=== PATIENT | male | born 1950 | race Hispanic/Latino ===

== ENCOUNTER 2017-09-02 08:38 | Emergency (ER) | payer MEDICARE ==
[2017-09-02] MEDS ORDERED: ACETAMINOPHEN 325 MG TAB ONE (09:25)
== END 2017-09-02 09:54 | disposition home or self-care (01) ==
LOC: EDH 08:38
DX: J10.1 Influenza due to other identified influenza virus with other respiratory manifestations (principal); J44.9 Chronic obstructive pulmonary disease, unspecified; E11.9 Type 2 diabetes mellitus without complications; I10 Essential (primary) hypertension; Z79.4 Long term (current) use of insulin; Z88.6 Allergy status to analgesic agent
CPT/HCPCS: 87804

== ENCOUNTER 2019-01-27 11:41 | Emergency (ER) | payer MEDICARE ==
[2019-01-27] MEDS ORDERED: TETANUS/DIPHTHERIA TOXOID [ADULT] 0.5 ML VIAL IM ONE (12:12)
== END 2019-01-27 12:27 | disposition home or self-care (01) ==
LOC: EDH 11:41
DX: S01.93XA Puncture wound without foreign body of unspecified part of head, initial encounter (principal); E11.9 Type 2 diabetes mellitus without complications; I10 Essential (primary) hypertension; J44.9 Chronic obstructive pulmonary disease, unspecified; Z88.6 Allergy status to analgesic agent; Z87.891 Personal history of nicotine dependence; W20.8XXA Other cause of strike by thrown, projected or falling object, initial encounter; Y93.89 Activity, other specified; Y92.89 Other specified places as the place of occurrence of the external cause; Y99.8 Other external cause status
CPT/HCPCS: 90471; 90714

== ENCOUNTER 2019-03-01 03:43 | Emergency (ER) | payer MEDICARE ==
[2019-03-01 03:59] LABS: APPEARANCE,URINE Clear (CLEAR); BILIRUBIN,URINE Negative (NEGATIVE); COLOR,URINE Yellow (YELLOW); GLUCOSE, URINE (UA) Negative (NEGATIVE); KETONES,URINE Negative (NEGATIVE); LEUKOCYTE ESTERASE ,URINE Negative (NEGATIVE); NITRATE,URINE Negative (NEGATIVE); OCCULT BLOOD,URINE Negative (NEGATIVE); PROTEIN,URINE Negative (NEGATIVE); UROBILINOGEN,URINE 0.2 mg/dL (0.2-1.0)
[2019-03-01 04:32] LABS: BASOPHILS % (AUTO) 0.8 % (0.0-5.0); EOSINOPHILS % (AUTO) 2.6 % (0.0-8.0); HEMATOCRIT 43.1 % (42-54); LYMPHOCYTES % (AUTO) 37.5 % (21.0-51.0); MEAN CORPUSCULAR HEMOGLOBIN 33.3 pg (27.0-33.0); MEAN CORPUSCULAR HGB CONC 33.8 g/dL (32.0-36.0); MEAN CORPUSCULAR VOLUME 98.5 fL (79-99); MONOCYTES % (AUTO) 7.8 % (3.0-13.0); NEUTROPHILS % (AUTO) 51.3 % (40.0-77.0); NUCLEATED RED BLOOD CELLS 0.1 % (0.0-0.19); PLATELET COUNT (AUTO) 105 K/uL (130-400); RED BLOOD CELL COUNT(AUTO) 4.38 MIL/uL (4.50-6.20); RED CELL DISTRIBUTION WIDTH 12.8 % (11.0-15.5)
[2019-03-01 04:43] LABS: CREATININE 1.2 mg/dL (0.5-1.5); POTASSIUM 3.4 mmol/L (3.5-5.1)
[2019-03-01 04:48] LABS: ALBUMIN 3.8 g/dL (3.5-5.0); BILIRUBIN,TOTAL 0.7 mg/dL (0.2-1.0); TOTAL PROTEIN, SERUM 7.3 g/dL (6.0-8.3)
[2019-03-01] MEDS ORDERED: TRAMADOL HCL 50 MG TABLET ONE (05:50)
== END 2019-03-01 05:53 | disposition home or self-care (01) ==
LOC: EDH 03:43
DX: R30.0 Dysuria (principal); R10.30 Lower abdominal pain, unspecified; I10 Essential (primary) hypertension; E11.40 Type 2 diabetes mellitus with diabetic neuropathy, unspecified; J44.9 Chronic obstructive pulmonary disease, unspecified; Z88.6 Allergy status to analgesic agent; Z79.4 Long term (current) use of insulin
CPT/HCPCS: 36415; 74176; 80053; 81003; 85025; 87486; 87797

== ENCOUNTER → 2019-04-03 | Outpatient (CLI) | payer MEDICARE | END | disposition home or self-care (01) | LOC: RAH 09:40 | PROVIDERS: ATTEND Surgery | DX: R10.9 Unspecified abdominal pain (principal); M47.819 Spondylosis without myelopathy or radiculopathy, site unspecified | CPT/HCPCS: 72192 ==

== ENCOUNTER 2019-08-17 14:11 | Emergency (ER) | payer MEDICARE ==
[2019-08-17 14:55] LABS: BASOPHILS % (AUTO) 0.6 % (0.0-5.0); EOSINOPHILS % (AUTO) 2.8 % (0.0-8.0); HEMATOCRIT 42.4 % (42-54); LYMPHOCYTES % (AUTO) 32.5 % (21.0-51.0); MEAN CORPUSCULAR HEMOGLOBIN 32.2 pg (27.0-33.0); MEAN CORPUSCULAR HGB CONC 33.7 g/dL (32.0-36.0); MEAN CORPUSCULAR VOLUME 95.5 fL (79-99); MONOCYTES % (AUTO) 6.5 % (3.0-13.0); NEUTROPHILS % (AUTO) 57.4 % (40.0-77.0); PLATELET COUNT (AUTO) 111 K/uL (130-400); RED BLOOD CELL COUNT(AUTO) 4.44 MIL/uL (4.50-6.20); RED CELL DISTRIBUTION WIDTH 11.9 % (11.0-15.5); WHITE BLOOD COUNT (AUTO) 4.6 K/uL (4.8-10.8)
[2019-08-17 15:06] LABS: APPEARANCE,URINE Cloudy (CLEAR); BILIRUBIN,URINE Negative (NEGATIVE); COLOR,URINE Yellow (YELLOW); GLUCOSE, URINE (UA) >=1000 mg/dL (NEGATIVE); KETONES,URINE Negative (NEGATIVE); LEUKOCYTE ESTERASE ,URINE Negative (NEGATIVE); NITRATE,URINE Negative (NEGATIVE); OCCULT BLOOD,URINE Negative (NEGATIVE); PROTEIN,URINE POS 1+ mg/dL (NEGATIVE); UROBILINOGEN,URINE 0.2 mg/dL (0.2-1.0)
[2019-08-17 15:11] LABS: INR 0.97 (0.85-1.15); PARTIAL THROMBOPLASTIN TIME 26.4 SEC (26.3-35.5); PROTHROMBIN TIME 10.2 SEC (9.6-11.6)
[2019-08-17 15:12] LABS: CREATININE 1.6 mg/dL (0.5-1.5)
[2019-08-17 15:17] LABS: ALBUMIN 3.9 g/dL (3.5-5.0); BILIRUBIN,TOTAL 0.5 mg/dL (0.2-1.0); TOTAL PROTEIN, SERUM 7.5 g/dL (6.0-8.3)
[2019-08-17 15:20] LABS: RBC,URINE 0-1 /HPF (0-1)
[2019-08-17 15:21] LABS: BACTERIA,URINE Rare /HPF (None Seen); MUCUS,URINE Moderate LPF (None Seen); SPERM,URINE Many /HPF (None Seen); SQUAMOUS EPITHELIAL CELL,UR 0-2 /HPF (0-2); WBC,URINE 0-1 /HPF (0-1)
[2019-08-17] MEDS ORDERED: PROCHLORPERAZINE EDISYLATE 10 MG/2 ML VIAL ONE (15:44)
[2019-08-17] MEDS ORDERED: SODIUM CHLORIDE 0.9% 500ML 500 ML IV ONE (15:45)
== END 2019-08-17 17:23 | disposition home or self-care (01) ==
LOC: EDH 14:11
DX: R10.13 Epigastric pain (principal); R10.10 Upper abdominal pain, unspecified; R11.0 Nausea; I10 Essential (primary) hypertension; E11.40 Type 2 diabetes mellitus with diabetic neuropathy, unspecified; J44.9 Chronic obstructive pulmonary disease, unspecified; Z88.6 Allergy status to analgesic agent; Z87.891 Personal history of nicotine dependence
CPT/HCPCS: 36415; 74176; 80053; 81001; 82550; 83690; 84484; 85025; 85610; 85730; 93005; 99285; J0780; J7040

== ENCOUNTER 2019-09-08 19:42 | Emergency (ER) | payer MEDICARE ==
[2019-09-08] MEDS ORDERED: TETANUS/DIPHTHERIA TOXOID [ADULT] 0.5 ML VIAL IM ONE (19:55)
== END 2019-09-08 20:27 | disposition home or self-care (01) ==
LOC: EDH 19:42
DX: S91.331A Puncture wound without foreign body, right foot, initial encounter (principal); Z88.6 Allergy status to analgesic agent; Z88.1 Allergy status to other antibiotic agents; E11.9 Type 2 diabetes mellitus without complications; J44.9 Chronic obstructive pulmonary disease, unspecified; X58.XXXA Exposure to other specified factors, initial encounter; Y93.89 Activity, other specified; Y92.098 Other place in other non-institutional residence as the place of occurrence of the external cause; Y99.8 Other external cause status
CPT/HCPCS: 73630; 90471; 90714

== ENCOUNTER 2019-12-13 15:23 | Emergency (ER) | payer MEDICARE ==
[2019-12-13] MEDS ORDERED: SODIUM CHLORIDE 0.9% 1000ML 1,000 ML IV ONE (15:24)
[2019-12-13 15:51] LABS: BASOPHILS % (AUTO) 0.4 % (0.0-5.0); EOSINOPHILS % (AUTO) 2.4 % (0.0-8.0); LYMPHOCYTES % (AUTO) 24.4 % (21.0-51.0); MEAN CORPUSCULAR HEMOGLOBIN 32.2 pg (27.0-33.0); MEAN CORPUSCULAR HGB CONC 34.3 g/dL (32.0-36.0); MEAN CORPUSCULAR VOLUME 93.9 fL (79-99); MONOCYTES % (AUTO) 8.2 % (3.0-13.0); NEUTROPHILS % (AUTO) 64.4 % (40.0-77.0); PLATELET COUNT (AUTO) 133 K/uL (130-400); RED BLOOD CELL COUNT(AUTO) 4.26 MIL/uL (4.50-6.20); RED CELL DISTRIBUTION WIDTH 11.8 % (11.0-15.5); WHITE BLOOD COUNT (AUTO) 5.5 K/uL (4.8-10.8)
[2019-12-13 16:04] LABS: ALBUMIN 3.8 g/dL (3.5-5.0); BILIRUBIN,TOTAL 0.4 mg/dL (0.2-1.0); CREATININE 1.5 mg/dL (0.5-1.5); TOTAL PROTEIN, SERUM 7.6 g/dL (6.0-8.3)
[2019-12-13] MEDS ORDERED: INSULIN HUMULIN R 100 UNIT/ML 3ML ONE (16:25)
[2019-12-13 16:55] LABS: ERYTHROCYTE SEDIMENTATION RATE 23 MM/HR (0-20)
[2019-12-13] MEDS ORDERED: CEFTRIAXONE SODIUM 1 GM ONE (17:38)
== END 2019-12-13 18:31 | disposition home or self-care (01) ==
LOC: EDH 15:23
DX: S92.902A Unspecified fracture of left foot, initial encounter for closed fracture (principal); L03.116 Cellulitis of left lower limb; E11.40 Type 2 diabetes mellitus with diabetic neuropathy, unspecified; J44.9 Chronic obstructive pulmonary disease, unspecified; Z88.8 Allergy status to other drugs, medicaments and biological substances; X58.XXXA Exposure to other specified factors, initial encounter; Y93.9 Activity, unspecified; Y92.89 Other specified places as the place of occurrence of the external cause; Y99.8 Other external cause status
CPT/HCPCS: 36415; 73630; 80053; 82948; 85025; 85651; 87040 ×2; 96374; 96375; 99284; J0696; J1815; J7030

== ENCOUNTER → 2020-03-30 | Outpatient (CLI) | payer MEDICARE | END | disposition home or self-care (01) | LOC: RAH 10:39 | PROVIDERS: ATTEND Psychiatry & Neurology Neurology | DX: M48.02 Spinal stenosis, cervical region (principal); E11.42 Type 2 diabetes mellitus with diabetic polyneuropathy | CPT/HCPCS: 72141 ==

== ENCOUNTER 2020-04-17 08:36 | Emergency (ER) | payer MEDICARE ==
[2020-04-17] MEDS ORDERED: SODIUM CHLORIDE 0.9% 1000ML 1,000 ML IV ONE (08:37)
[2020-04-17 09:21] LABS: BASOPHILS % (AUTO) 0.4 % (0.0-5.0); EOSINOPHILS % (AUTO) 2.5 % (0.0-8.0); HEMATOCRIT 43.6 % (42-54); LYMPHOCYTES % (AUTO) 27.8 % (21.0-51.0); MEAN CORPUSCULAR HEMOGLOBIN 31.9 pg (27.0-33.0); MEAN CORPUSCULAR HGB CONC 33.7 g/dL (32.0-36.0); MEAN CORPUSCULAR VOLUME 94.6 fL (79-99); MONOCYTES % (AUTO) 7.2 % (3.0-13.0); NEUTROPHILS % (AUTO) 61.9 % (40.0-77.0); PLATELET COUNT (AUTO) 107 K/uL (130-400); RED BLOOD CELL COUNT(AUTO) 4.61 MIL/uL (4.50-6.20); RED CELL DISTRIBUTION WIDTH 12.5 % (11.0-15.5); WHITE BLOOD COUNT (AUTO) 4.5 K/uL (4.8-10.8)
[2020-04-17 09:41] LABS: CREATININE 1.3 mg/dL (0.5-1.5); POTASSIUM 3.9 mmol/L (3.5-5.1)
[2020-04-17 09:45] LABS: ALBUMIN 3.7 g/dL (3.5-5.0); BILIRUBIN,TOTAL 0.7 mg/dL (0.2-1.0); CRP QUANTITATIVE 9.4 mg/L (0.00-9.0); TOTAL PROTEIN, SERUM 7.6 g/dL (6.0-8.3)
[2020-04-17 10:58] LABS: ERYTHROCYTE SEDIMENTATION RATE 25 MM/HR (0-20)
[2020-04-17] MEDS ORDERED: CEFTRIAXONE SODIUM 1 GM ONE (12:25)
== END 2020-04-17 13:13 | disposition home or self-care (01) ==
LOC: EDH 08:36
DX: S90.822A Blister (nonthermal), left foot, initial encounter (principal); M14.672 Charcot's joint, left ankle and foot; E11.65 Type 2 diabetes mellitus with hyperglycemia; J44.9 Chronic obstructive pulmonary disease, unspecified; I10 Essential (primary) hypertension; Z87.891 Personal history of nicotine dependence; Z88.8 Allergy status to other drugs, medicaments and biological substances; Z88.6 Allergy status to analgesic agent; X58.XXXA Exposure to other specified factors, initial encounter; Y93.89 Activity, other specified; Y92.89 Other specified places as the place of occurrence of the external cause; Y99.8 Other external cause status
CPT/HCPCS: 36415; 73630; 80053; 83605; 84145; 85025; 85651; 86140; 87070; 87076; 93005; 96361; 96374; 99285; J0696; J7030

== ENCOUNTER 2020-11-13 18:12 | Emergency (ER) | payer MEDICARE ==
[2020-11-13 19:43] LABS: BASOPHILS % (AUTO) 0.8 % (0.0-5.0); EOSINOPHILS % (AUTO) 2.7 % (0.0-8.0); HEMATOCRIT 38.3 % (42-54); LYMPHOCYTES % (AUTO) 30.9 % (21.0-51.0); MEAN CORPUSCULAR HEMOGLOBIN 32.7 pg (27.0-33.0); MEAN CORPUSCULAR HGB CONC 33.7 g/dL (32.0-36.0); MEAN CORPUSCULAR VOLUME 97.2 fL (79-99); MONOCYTES % (AUTO) 9.8 % (3.0-13.0); NEUTROPHILS % (AUTO) 55.3 % (40.0-77.0); PLATELET COUNT (AUTO) 102 K/uL (130-400); RED BLOOD CELL COUNT(AUTO) 3.94 MIL/uL (4.50-6.20); RED CELL DISTRIBUTION WIDTH 13.4 % (11.0-15.5); WHITE BLOOD COUNT (AUTO) 3.8 K/uL (4.8-10.8)
[2020-11-13 19:51] LABS: CREATININE 1.4 mg/dL (0.5-1.5); POTASSIUM 3.9 mmol/L (3.5-5.1)
[2020-11-13 19:53] LABS: APPEARANCE,URINE Clear (CLEAR); BILIRUBIN,URINE Negative (NEGATIVE); COLOR,URINE Yellow (YELLOW); GLUCOSE, URINE (UA) >=1000 mg/dL (NEGATIVE); KETONES,URINE Negative (NEGATIVE); LEUKOCYTE ESTERASE ,URINE Negative (NEGATIVE); NITRATE,URINE Negative (NEGATIVE); OCCULT BLOOD,URINE Negative (NEGATIVE); PH,URINE 5.5 (5.0-8.0); PROTEIN,URINE Negative (NEGATIVE)
[2020-11-13] MEDS ORDERED: METHYLPREDNISOLONE SOD SUCC 125MG/2ML VIAL ONE (19:54)
[2020-11-13 19:56] LABS: ALBUMIN 3.3 g/dL (3.5-5.0); BILIRUBIN,TOTAL 0.5 mg/dL (0.2-1.0); TOTAL PROTEIN, SERUM 7.4 g/dL (6.0-8.3)
[2020-11-13] MEDS ORDERED: IPRATROPIUM/ALBUTEROL SULFATE 3 ML SOLUTION IH ONE (20:10)
[2020-11-13 20:11] LABS: BACTERIA,URINE Rare /HPF (None Seen); RBC,URINE 0-1 /HPF (0-1); SQUAMOUS EPITHELIAL CELL,UR Rare /HPF (0-2); WBC,URINE 0-1 /HPF (0-1)
[2020-11-13 20:23] LABS: ABG BASE EXCESS -1.7 mmol/L (-2.0-3.0); ABG HCO3 22.3 mmol/L (21.0-28.0); ABG OXYGEN SATURATION 95.3 % (95.0-99.0); ABG PCO2 36 mmHg (35-48)
== END 2020-11-13 22:34 | disposition home or self-care (01) ==
LOC: EDH 18:12
DX: J44.9 Chronic obstructive pulmonary disease, unspecified (principal); Z20.822 Contact with and (suspected) exposure to COVID-19; I10 Essential (primary) hypertension; E11.40 Type 2 diabetes mellitus with diabetic neuropathy, unspecified; Z88.6 Allergy status to analgesic agent; Z88.8 Allergy status to other drugs, medicaments and biological substances; Z87.891 Personal history of nicotine dependence
CPT/HCPCS: 36415; 36600; 71045; 80053; 81001; 82803; 83880; 84484; 85025; 87426; 93005; 94640; 96374; 99285; J2930; U0003

== ENCOUNTER 2020-12-30 18:11 | Emergency (ER) | payer MEDICARE ==
[2020-12-30 19:01] LABS: BASOPHILS % (AUTO) 0.5 % (0.0-5.0); EOSINOPHILS % (AUTO) 3.7 % (0.0-8.0); HEMATOCRIT 38.1 % (42-54); LYMPHOCYTES % (AUTO) 32.1 % (21.0-51.0); MEAN CORPUSCULAR HEMOGLOBIN 32.9 pg (27.0-33.0); MEAN CORPUSCULAR HGB CONC 34.4 g/dL (32.0-36.0); MEAN CORPUSCULAR VOLUME 95.7 fL (79-99); MONOCYTES % (AUTO) 9.2 % (3.0-13.0); NEUTROPHILS % (AUTO) 54.5 % (40.0-77.0); PLATELET COUNT (AUTO) 92 K/uL (130-400); RED BLOOD CELL COUNT(AUTO) 3.98 MIL/uL (4.50-6.20); RED CELL DISTRIBUTION WIDTH 12.7 % (11.0-15.5)
[2020-12-30] MEDS ORDERED: HYDROCODONE/ACETAMINOPHEN 5/325 MG TAB ONE (19:08)
[2020-12-30 19:15] LABS: CREATININE 1.5 mg/dL (0.5-1.5); INR 1.05 (0.85-1.15); POTASSIUM 3.8 mmol/L (3.5-5.1); PROTHROMBIN TIME 11.4 SEC (9.6-11.6)
[2020-12-30 19:16] LABS: PARTIAL THROMBOPLASTIN TIME 25.5 SEC (26.3-35.5)
[2020-12-30 19:19] LABS: ALBUMIN 3.1 g/dL (3.5-5.0); BILIRUBIN,TOTAL 0.7 mg/dL (0.2-1.0); CRP QUANTITATIVE 12.1 mg/L (0.00-9.0); TOTAL PROTEIN, SERUM 7.1 g/dL (6.0-8.3)
[2020-12-30 20:05] LABS: ERYTHROCYTE SEDIMENTATION RATE 27 MM/HR (0-20)
== END 2020-12-30 21:43 | disposition home or self-care (01) ==
LOC: EDH 18:11
DX: L03.115 Cellulitis of right lower limb (principal); R60.9 Edema, unspecified; I10 Essential (primary) hypertension; J44.9 Chronic obstructive pulmonary disease, unspecified; E11.40 Type 2 diabetes mellitus with diabetic neuropathy, unspecified; Z88.6 Allergy status to analgesic agent; Z88.8 Allergy status to other drugs, medicaments and biological substances; Z98.890 Other specified postprocedural states
CPT/HCPCS: 36415; 80053; 82550; 83605; 83880; 84484; 85025; 85610; 85651; 85730; 86140; 87040; 93005; 93971

== ENCOUNTER 2021-01-01 16:21 | Emergency (ER) | payer MEDICARE ==
[2021-01-01] MEDS ORDERED: ACETAMINOPHEN EXTRA STRENGTH 500 MG TABLET ONE (16:53)
== END 2021-01-01 17:51 | disposition home or self-care (01) ==
LOC: EDH 16:21
DX: S86.912A Strain of unspecified muscle(s) and tendon(s) at lower leg level, left leg, initial encounter (principal); I10 Essential (primary) hypertension; J44.9 Chronic obstructive pulmonary disease, unspecified; E11.40 Type 2 diabetes mellitus with diabetic neuropathy, unspecified; Z88.6 Allergy status to analgesic agent; Z88.8 Allergy status to other drugs, medicaments and biological substances; X58.XXXA Exposure to other specified factors, initial encounter; Y93.89 Activity, other specified; Y92.098 Other place in other non-institutional residence as the place of occurrence of the external cause; Y99.8 Other external cause status
CPT/HCPCS: 93971

== ENCOUNTER 2021-03-18 19:10 | Emergency (ER) | payer MEDICARE ==
[2021-03-18 19:16] VITALS: BP 154/63
[2021-03-18] MEDS ORDERED: ACETAMINOPHEN WITH CODEINE 1 TAB TAB PO ONE (22:00)
[2021-03-18] MEDS ORDERED: HYDROXYZINE 25 MG TABLET PO ONE (22:00)
[2021-03-18] MEDS ORDERED: HYDR-3421 PO (22:05)
[2021-03-18] MEDS ORDERED: FAMC500T8 PO (22:05)
[2021-03-18] MEDS ORDERED: GABA300C PO (22:05)
[2021-03-18] MEDS ORDERED: ACETAMINOPHEN WITH CODEINE 1 TAB TAB ONE (22:19)
[2021-03-18] MEDS ORDERED: DIPHENHYDRAMINE HCL 25 MG CAPSULE ONE (22:22)
[2021-03-18 22:29] VITALS: BP 149/66
[2021-03-18] MEDS ORDERED: DIPHENHYDRAMINE HCL 25 MG CAPSULE PO ONE (22:30)
== END 2021-03-18 22:35 | disposition home or self-care (01) ==
LOC: EDH 19:10
DX: B02.9 Zoster without complications (principal); L29.9 Pruritus, unspecified; R20.8 Other disturbances of skin sensation; M19.90 Unspecified osteoarthritis, unspecified site; E11.40 Type 2 diabetes mellitus with diabetic neuropathy, unspecified; Z88.6 Allergy status to analgesic agent; Z88.8 Allergy status to other drugs, medicaments and biological substances; Z79.899 Other long term (current) drug therapy
CPT/HCPCS: 99283; Q0163

== ENCOUNTER 2021-08-30 20:03 | Emergency (ER) | payer MEDICARE ==
[~2021-08-30] VITALS: Ht 162.6 cm; Wt 86.2 kg
[~2021-08-30 20:03] MED LIST: FAMC500T8 PO; GABA300C PO; HYDR-3421 PO
[2021-08-30] MEDS ORDERED: VALACYCLOVIR HCL 500 MG TABLET PO SCH (21:00)
[2021-08-30] MEDS ORDERED: ACETAMINOPHEN WITH CODEINE 1 TAB TAB PO ONE (21:00)
[2021-08-30] MEDS ORDERED: DOCU-116 PO (21:22)
[2021-08-30] MEDS ORDERED: ACET1TAB25 PO (21:22)
[2021-08-30] MEDS ORDERED: ACYC-138 PO (21:22)
[2021-08-30 21:31] VITALS: BP 131/67
== END 2021-08-30 21:45 | disposition home or self-care (01) ==
LOC: EDH 20:03
DX: B02.9 Zoster without complications (principal); I10 Essential (primary) hypertension; E10.9 Type 1 diabetes mellitus without complications; Z88.6 Allergy status to analgesic agent; Z88.8 Allergy status to other drugs, medicaments and biological substances; Z79.899 Other long term (current) drug therapy

== ENCOUNTER 2021-12-16 09:23 | Emergency (ER) | payer MEDICARE ==
[~2021-12-16] VITALS: Ht 162.6 cm; Wt 87.1 kg
[~2021-12-16 09:23] MED LIST changes: +ACET-2079 PO; +ACYC-138 PO; +DOCU-116 PO
[2021-12-16] MEDS ORDERED: ACETAMINOPHEN 500 MG TABLET ONE (09:55)
[2021-12-16 09:58] LABS: BASOPHILS % (AUTO) 0.2 % (0.0-5.0); EOSINOPHILS % (AUTO) 0.2 % (0.0-8.0); HEMATOCRIT 39.5 % (42-54); LYMPHOCYTES % (AUTO) 18.7 % (21.0-51.0); MEAN CORPUSCULAR HEMOGLOBIN 33.8 pg (27.0-33.0); MEAN CORPUSCULAR HGB CONC 34.2 g/dL (32.0-36.0); MEAN CORPUSCULAR VOLUME 98.8 fL (79-99); NEUTROPHILS % (AUTO) 76.5 % (40.0-77.0); PLATELET COUNT (AUTO) 83 K/uL (130-400); RED CELL DISTRIBUTION WIDTH 13.2 % (11.0-15.5); WHITE BLOOD COUNT (AUTO) 5.3 K/uL (4.8-10.8)
[2021-12-16 10:10] LABS: POTASSIUM 3.4 mmol/L (3.5-5.1)
[2021-12-16 10:15] LABS: ALBUMIN 3.1 g/dL (3.5-5.0); BILIRUBIN,TOTAL 0.8 mg/dL (0.2-1.0); TOTAL PROTEIN, SERUM 6.7 g/dL (6.0-8.3)
[2021-12-16 11:32] LABS: APPEARANCE,URINE Clear (CLEAR); BILIRUBIN,URINE Negative (NEGATIVE); COLOR,URINE Yellow (YELLOW); GLUCOSE, URINE (UA) TRACE mg/dL (NEGATIVE); KETONES,URINE Negative (NEGATIVE); LEUKOCYTE ESTERASE ,URINE Negative (NEGATIVE); NITRATE,URINE Negative (NEGATIVE); OCCULT BLOOD,URINE Negative (NEGATIVE); PH,URINE 6.5 (5.0-8.0); PROTEIN,URINE Negative (NEGATIVE)
[2021-12-16 11:59] LABS: BACTERIA,URINE Rare /HPF (None Seen); RBC,URINE 0-1 /HPF (0-1); SQUAMOUS EPITHELIAL CELL,UR Rare /HPF (0-2); WBC,URINE 0-1 /HPF (0-1)
[2021-12-16] MEDS ORDERED: KETOROLAC 30MG VIAL (30MG/ML) ONE (12:24)
[2021-12-16] MEDS ORDERED: KETOROLAC 30MG VIAL (30MG/ML) IM ONE (12:30)
[2021-12-16 13:43] VITALS: BP 138/72
== END 2021-12-16 14:10 | disposition home or self-care (01) ==
LOC: EDH 09:23
DX: K74.60 Unspecified cirrhosis of liver (principal); I12.0 Hypertensive chronic kidney disease with stage 5 chronic kidney disease or end stage renal disease; E11.22 Type 2 diabetes mellitus with diabetic chronic kidney disease; E11.40 Type 2 diabetes mellitus with diabetic neuropathy, unspecified; J44.9 Chronic obstructive pulmonary disease, unspecified; N18.6 End stage renal disease; Z88.6 Allergy status to analgesic agent
CPT/HCPCS: 36415; 72100; 74176; 80053; 81001; 85025; 93005; 96372; 99285; J1885

== ENCOUNTER 2022-03-05 17:09 | Emergency (ER) | payer MEDICARE ==
[~2022-03-05] VITALS: Ht 162.6 cm; Wt 88.9 kg
[2022-03-05 17:52] LABS: BASOPHILS % (AUTO) 0.6 % (0.0-5.0); EOSINOPHILS % (AUTO) 2.8 % (0.0-8.0); HEMATOCRIT 37.9 % (42-54); LYMPHOCYTES % (AUTO) 29.5 % (21.0-51.0); MEAN CORPUSCULAR HEMOGLOBIN 33.9 pg (27.0-33.0); MEAN CORPUSCULAR HGB CONC 34.3 g/dL (32.0-36.0); MONOCYTES % (AUTO) 9.8 % (3.0-13.0); NEUTROPHILS % (AUTO) 56.7 % (40.0-77.0); PLATELET COUNT (AUTO) 87 K/uL (130-400); RED BLOOD CELL COUNT(AUTO) 3.83 MIL/uL (4.50-6.20); RED CELL DISTRIBUTION WIDTH 13.3 % (11.0-15.5); WHITE BLOOD COUNT (AUTO) 4.9 K/uL (4.8-10.8)
[2022-03-05 17:56] LABS: APPEARANCE,URINE Clear (CLEAR); BILIRUBIN,URINE Negative (NEGATIVE); COLOR,URINE Dark Yellow (YELLOW); GLUCOSE, URINE (UA) 250 mg/dL (NEGATIVE); KETONES,URINE Negative (NEGATIVE); LEUKOCYTE ESTERASE ,URINE Negative (NEGATIVE); NITRATE,URINE Negative (NEGATIVE); OCCULT BLOOD,URINE Negative (NEGATIVE); PH,URINE 5.5 (5.0-8.0); PROTEIN,URINE Negative (NEGATIVE)
[2022-03-05 18:09] LABS: CARBON DIOXIDE 24 mmol/L (21-32); CHLORIDE 108 mmol/L (101-111); CREATININE 1.3 mg/dL (0.5-1.5); GLOMERULAR FILTR. RATE CALC 58 mL/min (>60); GLUCOSE,RANDOM 176 mg/dL (70-105); POTASSIUM 3.4 mmol/L (3.5-5.1); SODIUM SERUM 139 mmol/L (136-145); UREA NITROGEN, BLOOD 24 mg/dL (7-18)
[2022-03-05 18:15] LABS: BACTERIA,URINE Rare /HPF (None Seen); RBC,URINE 0-1 /HPF (0-1); SQUAMOUS EPITHELIAL CELL,UR Rare /HPF (0-2); WBC,URINE 0-1 /HPF (0-1)
[2022-03-05 18:16] LABS: ALANINE AMINOTRANSFERASE 73 U/L (12-78); ALBUMIN 2.9 g/dL (3.5-5.0); ASPARTATE AMINOTRANSFERASE 36 U/L (10-37); LIPASE 256 U/L (114-286); TOTAL PROTEIN, SERUM 6.4 g/dL (6.0-8.3)
[2022-03-05 21:55] VITALS: BP 129/55
== END 2022-03-05 22:06 | disposition home or self-care (01) ==
LOC: EDH 17:09
DX: N40.0 Benign prostatic hyperplasia without lower urinary tract symptoms (principal); D69.6 Thrombocytopenia, unspecified; E87.6 Hypokalemia; I12.9 Hypertensive chronic kidney disease with stage 1 through stage 4 chronic kidney disease, or unspecified chronic kidney disease; E11.22 Type 2 diabetes mellitus with diabetic chronic kidney disease; N18.2 Chronic kidney disease, stage 2 (mild); D63.1 Anemia in chronic kidney disease; J44.9 Chronic obstructive pulmonary disease, unspecified; Z88.6 Allergy status to analgesic agent; Z88.8 Allergy status to other drugs, medicaments and biological substances; Z79.899 Other long term (current) drug therapy; Z98.890 Other specified postprocedural states; Z87.891 Personal history of nicotine dependence
CPT/HCPCS: 36415; 80053; 81001; 83690; 85025

== ENCOUNTER → 2022-03-16 | Outpatient (CLI) | payer MEDICARE ==
[~2022-03-16] MED LIST changes: +REGADENOSON 0.4 MG/5 ML PF SYG IVP SCH
== END | disposition home or self-care (01) ==
LOC: RAH 07:55
PROVIDERS: ATTEND Internal Medicine Interventional Cardiology
DX: R06.02 Shortness of breath (principal)
CPT/HCPCS: 78452; 96374; 93017; J2785; A9500 ×2

== ENCOUNTER 2022-05-07 10:45 | Emergency (ER) | payer MEDICARE ==
[~2022-05-07] VITALS: Ht 162.6 cm; Wt 87.1 kg
[~2022-05-07 10:45] MED LIST changes: -REGADENOSON 0.4 MG/5 ML PF SYG IVP SCH
[2022-05-07 12:53] LABS: BASOPHILS % (AUTO) 0.3 % (0.0-5.0); EOSINOPHILS % (AUTO) 0.3 % (0.0-8.0); HEMATOCRIT 43.8 % (42-54); LYMPHOCYTES % (AUTO) 9.9 % (21.0-51.0); MEAN CORPUSCULAR HEMOGLOBIN 33.4 pg (27.0-33.0); MEAN CORPUSCULAR HGB CONC 33.8 g/dL (32.0-36.0); MEAN CORPUSCULAR VOLUME 98.9 fL (79-99); MONOCYTES % (AUTO) 7.1 % (3.0-13.0); PLATELET COUNT (AUTO) 99 K/uL (130-400); RED BLOOD CELL COUNT(AUTO) 4.43 MIL/uL (4.50-6.20); RED CELL DISTRIBUTION WIDTH 13.1 % (11.0-15.5); WHITE BLOOD COUNT (AUTO) 9.4 K/uL (4.8-10.8)
[2022-05-07 12:58] LABS: CREATININE 1.6 mg/dL (0.5-1.5); POTASSIUM 3.7 mmol/L (3.5-5.1)
[2022-05-07 13:03] LABS: TOTAL PROTEIN, SERUM 7.1 g/dL (6.0-8.3)
[2022-05-07 13:11] LABS: APPEARANCE,URINE CLEAR (CLEAR); BILIRUBIN,URINE NEGATIVE (NEGATIVE); COLOR,URINE YELLOW (YELLOW); GLUCOSE, URINE (UA) >=1000 mg/dL (NEGATIVE); KETONES,URINE NEGATIVE (NEGATIVE); LEUKOCYTE ESTERASE ,URINE NEGATIVE Leu/uL (NEGATIVE); NITRATE,URINE NEGATIVE (NEGATIVE); OCCULT BLOOD,URINE NEGATIVE (NEGATIVE); PH,URINE 5.5 (5.0-8.0); PROTEIN,URINE NEGATIVE (NEGATIVE); UROBILINOGEN,URINE 0.2 mg/dL (0.2-1.0)
[2022-05-07 13:16] VITALS: BP 126/55
[2022-05-07 13:31] LABS: RBC,URINE 0-1 /HPF (0-1); WBC,URINE None Seen /HPF (0-1)
[2022-05-07 13:32] LABS: BACTERIA,URINE Rare /HPF (None Seen); SQUAMOUS EPITHELIAL CELL,UR 0-2 /HPF (0-2)
== END 2022-05-07 13:29 | disposition home or self-care (01) ==
LOC: EDH 10:45
DX: E11.649 Type 2 diabetes mellitus with hypoglycemia without coma (principal); I10 Essential (primary) hypertension; R55 Syncope and collapse; J44.9 Chronic obstructive pulmonary disease, unspecified; E78.00 Pure hypercholesterolemia, unspecified; Z88.6 Allergy status to analgesic agent; M19.90 Unspecified osteoarthritis, unspecified site; Z79.899 Other long term (current) drug therapy
CPT/HCPCS: 36415; 71045; 80053; 81001; 82948; 84484; 85025; 93005

== ENCOUNTER 2022-08-18 16:04 | Inpatient (IN) | payer MEDICARE ==
[~2022-08-18] VITALS: Ht 162.6 cm; Wt 84.4 kg
[~2022-08-18 16:04] MED LIST changes: -ACET-2079 PO; +ACET325T51 PO; -ACYC-138 PO; +ASPI-1443 PO; +ATOR40TA71 PO; +CILO50TA2 PO; +CLOP75TA32 PO; -DOCU-116 PO; +DOXA8TAB81 PO; +EMPA25TA PO; -FAMC500T8 PO; +FAMO20TA8 PO; +FINA5TAB41 PO; +FURO20TA4 PO; +FURO40TA5 PO; -GABA300C PO; +GLIP5TAB11 PO; -HYDR-3421 PO; +LISI40TA9 PO; +LORA10TA7 PO; +MONT-39 PO; +MUPI22OI2 TP; +OMEP40CA21 PO; +POTA-79 PO; +SPIR25TA PO
[2022-08-18] MEDS ORDERED: 0.9%NACL 1000ML 2,000 ML IV ONE (16:30)
[2022-08-18 16:38] LABS: BASOPHILS % (AUTO) 0.3 % (0.0-5.0); EOSINOPHILS % (AUTO) 0.7 % (0.0-8.0); HEMATOCRIT 42.6 % (42-54); LYMPHOCYTES % (AUTO) 21.4 % (21.0-51.0); MEAN CORPUSCULAR HEMOGLOBIN 32.4 pg (27.0-33.0); MEAN CORPUSCULAR HGB CONC 32.9 g/dL (32.0-36.0); MEAN CORPUSCULAR VOLUME 98.6 fL (79-99); MONOCYTES % (AUTO) 8.4 % (3.0-13.0); NEUTROPHILS % (AUTO) 68.7 % (40.0-77.0); PLATELET COUNT (AUTO) 90 K/uL (130-400); RED BLOOD CELL COUNT(AUTO) 4.32 MIL/uL (4.50-6.20); RED CELL DISTRIBUTION WIDTH 13.7 % (11.0-15.5); WHITE BLOOD COUNT (AUTO) 10.2 K/uL (4.8-10.8)
[2022-08-18 16:51] LABS: POTASSIUM 4.2 mmol/L (3.5-5.1)
[2022-08-18 17:01] LABS: TOTAL PROTEIN, SERUM 6.7 g/dL (6.0-8.3)
[2022-08-18] MEDS ORDERED: FLUT16H NASAL (17:10)
[2022-08-18] MEDS ORDERED: INSU100I24 SQ (17:10)
[2022-08-18] MEDS ORDERED: DULO30CA52 PO (17:10)
[2022-08-18] MEDS ORDERED: PRED20TA3 PO (17:10)
[2022-08-18] MEDS ORDERED: FLUT1BLS3 IH (17:10)
[2022-08-18] MEDS ORDERED: CILO50TA2 PO (17:10)
[2022-08-18] MEDS ORDERED: ALBU6.7H14 IH (17:10)
[2022-08-18] MEDS ORDERED: INSU100I32 SQ (17:10)
[2022-08-18] MEDS ORDERED: 0.9%NACL 1000ML 1,000 ML IV ONE (18:00)
[2022-08-18] MEDS ORDERED: VANCOMYCIN 1G VIAL IVPB ONE (18:00)
[2022-08-18] MEDS ORDERED: ZOSYN 3.375GM +NS 50ML IV ONE (18:00)
[2022-08-18 18:07] LABS: APPEARANCE,URINE CLEAR (CLEAR); BILIRUBIN,URINE NEGATIVE (NEGATIVE); COLOR,URINE YELLOW (YELLOW); GLUCOSE, URINE (UA) >=1000 mg/dL (NEGATIVE); KETONES,URINE NEGATIVE (NEGATIVE); LEUKOCYTE ESTERASE ,URINE NEGATIVE Leu/uL (NEGATIVE); NITRATE,URINE NEGATIVE (NEGATIVE); OCCULT BLOOD,URINE NEGATIVE (NEGATIVE); PH,URINE 5.5 (5.0-8.0); PROTEIN,URINE NEGATIVE (NEGATIVE); UROBILINOGEN,URINE 0.2 mg/dL (0.2-1.0)
[2022-08-18 18:10] LABS: RBC,URINE 0-1 /HPF (0-1); SQUAMOUS EPITHELIAL CELL,UR RARE /HPF (0-2)
[2022-08-18] MEDS ORDERED: ONDANSETRON 4MG INJ IV PRN (18:30)
[2022-08-18] MEDS ORDERED: CEFEPIME HCL 2 GM VIAL IVP SCH (18:30)
[2022-08-18] MEDS ORDERED: KCL 20 MEQ ERTAB PO PRN (18:30)
[2022-08-18] MEDS ORDERED: MORPHINE 2 MG SYG IV PRN (18:30)
[2022-08-18] MEDS ORDERED: INSULIN HUMULIN R 100 UNIT/ML 3ML SQ ONE (18:30)
[2022-08-18] MEDS ORDERED: HYDROMORPHONE 1 MG INJ IV PRN (18:30)
[2022-08-18] MEDS ORDERED: LACTATED RINGERS IV ONE (18:30)
[2022-08-18] MEDS ORDERED: LIDOCAINE HCL-MPF 1% 2ML VIAL IV PRN (18:30)
[2022-08-18] MEDS ORDERED: VANCOMYCIN PROTOCOL PER PHARMACY IV PRN (18:30)
[2022-08-18] MEDS ORDERED: POTASSIUM CHLORIDE 20MEQ/100ML 100 ML IV PRN (18:30)
[2022-08-18] MEDS ORDERED: MAGNESIUM 2GM PREMIX 50ML 50 ML IV PRN (18:30)
[2022-08-18] MEDS ORDERED: POTASSIUM CHLORIDE 10% ELIXIR 20 MEQ/15 ML UDCUP PO PRN (18:30)
[2022-08-18] MEDS ORDERED: VANCOMYCIN 1G/250ML KIT 250 ML IV ONE (18:57)
[2022-08-18 19:14] LABS: CREATININE,URINE RANDOM 83 mg/dL (30-135); SODIUM,URINE RANDOM 35 mmol/l (40-220)
[2022-08-18] MEDS ORDERED: VANCOMYCIN 1.5 GM/250 ML BAG 250 ML IV ONE (19:30)
[2022-08-18] MEDS: LACTATED RINGERS 1000ML 1,000 ML IV SCH (19:35)
[2022-08-18] MEDS: ACETAMINOPHEN 325 MG TAB PO PRN (19:35)
[2022-08-18] MEDS: INSULIN HUMULIN R 100 UNIT/ML 3ML SQ SCH (21:00)
[2022-08-18] MEDS: HEPARIN 5,000 UNIT VIAL SQ SCH (21:27)
[2022-08-19] MEDS: ACETAMINOPHEN 325 MG TAB PO PRN (06:34)
[2022-08-19] MEDS: INSULIN HUMULIN R 100 UNIT/ML 3ML SQ SCH ×4 (07:30→21:00)
[2022-08-19] MEDS: FAMOTIDINE 20MG TAB PO SCH (08:52)
[2022-08-19] MEDS: VANCOMYCIN 750MG VIAL IVPB SCH (08:52)
[2022-08-19] MEDS: HEPARIN 5,000 UNIT VIAL SQ SCH ×2 (08:53→20:22)
[2022-08-19 08:55] LABS: BASOPHILS % (AUTO) 0.4 % (0.0-5.0); EOSINOPHILS % (AUTO) 2.7 % (0.0-8.0); HEMATOCRIT 39.8 % (42-54); LYMPHOCYTES % (AUTO) 24.3 % (21.0-51.0); MEAN CORPUSCULAR HEMOGLOBIN 32.6 pg (27.0-33.0); MEAN CORPUSCULAR HGB CONC 33.4 g/dL (32.0-36.0); MEAN CORPUSCULAR VOLUME 97.5 fL (79-99); MONOCYTES % (AUTO) 8.4 % (3.0-13.0); NEUTROPHILS % (AUTO) 63.6 % (40.0-77.0); PLATELET COUNT (AUTO) 83 K/uL (130-400); RED BLOOD CELL COUNT(AUTO) 4.08 MIL/uL (4.50-6.20); WHITE BLOOD COUNT (AUTO) 5.1 K/uL (4.8-10.8)
[2022-08-19 09:00] VITALS: BP 154/80
[2022-08-19 09:08] LABS: CREATININE 1.2 mg/dL (0.5-1.5); MAGNESIUM 1.9 mg/dL (1.80-2.40); PHOSPHORUS 3.2 mg/dL (2.5-4.9); POTASSIUM 4.1 mmol/L (3.5-5.1)
[2022-08-19 09:18] LABS: HEMOGLOBIN A1C 7.7 % (4.0-6.0)
[2022-08-19] MEDS: LACTATED RINGERS 1000ML 1,000 ML IV SCH (11:10)
[2022-08-19 11:38] LABS: CREATININE 1.2 mg/dL (0.5-1.5); POTASSIUM 4.4 mmol/L (3.5-5.1)
[2022-08-19 11:41] VITALS: BP 122/78
[2022-08-19 11:41] LABS: ALBUMIN 2.7 g/dL (3.5-5.0); TOTAL PROTEIN, SERUM 6.1 g/dL (6.0-8.3)
[2022-08-19 16:10] VITALS: BP 132/80
[2022-08-19] MEDS ORDERED: ALBUTEROL INHALER 90MCG/INH IH PRN ×2 (17:00→17:30)
[2022-08-19] MEDS: MUPIROCIN OINTMENT 22 GM TUBE TP SCH (18:59)
[2022-08-19] MEDS: ATORVASTATIN 40 MG TABLET PO SCH (20:23)
[2022-08-19] MEDS: CEFEPIME HCL 2 GM VIAL IVP SCH (20:23)
[2022-08-19 23:00] VITALS: BP 132/71
[2022-08-20 03:00] VITALS: BP 120/50
[2022-08-20 04:30] LABS: BASOPHILS % (AUTO) 0.5 % (0.0-5.0); EOSINOPHILS % (AUTO) 3.6 % (0.0-8.0); HEMATOCRIT 41.3 % (42-54); LYMPHOCYTES % (AUTO) 28.6 % (21.0-51.0); MEAN CORPUSCULAR HEMOGLOBIN 32.4 pg (27.0-33.0); MEAN CORPUSCULAR HGB CONC 33.2 g/dL (32.0-36.0); MEAN CORPUSCULAR VOLUME 97.6 fL (79-99); MONOCYTES % (AUTO) 7.8 % (3.0-13.0); PLATELET COUNT (AUTO) 93 K/uL (130-400); RED BLOOD CELL COUNT(AUTO) 4.23 MIL/uL (4.50-6.20); RED CELL DISTRIBUTION WIDTH 13.9 % (11.0-15.5); WHITE BLOOD COUNT (AUTO) 5.8 K/uL (4.8-10.8)
[2022-08-20 04:51] LABS: CREATININE 1.1 mg/dL (0.5-1.5); PHOSPHORUS 2.7 mg/dL (2.5-4.9); POTASSIUM 4.2 mmol/L (3.5-5.1)
[2022-08-20] MEDS: INSULIN HUMULIN R 100 UNIT/ML 3ML SQ SCH ×4 (06:39→21:03)
[2022-08-20 07:54] VITALS: BP 120/63
[2022-08-20] MEDS: MUPIROCIN OINTMENT 22 GM TUBE TP SCH ×2 (08:21→21:05)
[2022-08-20] MEDS ORDERED: LACTULOSE 20 GM/30 ML UDCUP ONE (08:24)
[2022-08-20] MEDS: FINASTERIDE 5 MG TABLET PO SCH (08:28)
[2022-08-20] MEDS: DULOXETINE HCL 30 MG CAP PO SCH (08:29)
[2022-08-20] MEDS: MONTELUKAST SODIUM 10 MG TAB PO SCH (08:29)
[2022-08-20] MEDS: CLOPIDOGREL 75MG TAB PO SCH (08:29)
[2022-08-20] MEDS: FAMOTIDINE 20MG TAB PO SCH (08:29)
[2022-08-20] MEDS: HEPARIN 5,000 UNIT VIAL SQ SCH ×2 (08:30→21:02)
[2022-08-20] MEDS: VANCOMYCIN 750MG VIAL IVPB SCH (08:30)
[2022-08-20] MEDS: Fluticasone/Umeclidin/Vilanter (Trelegy Ellipta 100-62.5- IH SCH (08:41)
[2022-08-20 11:25] VITALS: BP 109/62
[2022-08-20 16:15] VITALS: BP 135/71
[2022-08-20 20:58] VITALS: BP 122/66
[2022-08-20] MEDS: CEFEPIME HCL 2 GM VIAL IVP SCH (20:59)
[2022-08-20] MEDS: ATORVASTATIN 40 MG TABLET PO SCH (20:59)
[2022-08-21] VITALS (7 sets, daily range): BP systolic 110–156; BP diastolic 62–74
[2022-08-21 03:56] LABS: BASOPHILS % (AUTO) 0.5 % (0.0-5.0); HEMATOCRIT 40.2 % (42-54); LYMPHOCYTES % (AUTO) 24.6 % (21.0-51.0); MEAN CORPUSCULAR HEMOGLOBIN 32.1 pg (27.0-33.0); MEAN CORPUSCULAR HGB CONC 33.3 g/dL (32.0-36.0); MEAN CORPUSCULAR VOLUME 96.4 fL (79-99); MONOCYTES % (AUTO) 9.4 % (3.0-13.0); PLATELET COUNT (AUTO) 83 K/uL (130-400); RED BLOOD CELL COUNT(AUTO) 4.17 MIL/uL (4.50-6.20); RED CELL DISTRIBUTION WIDTH 13.6 % (11.0-15.5); WHITE BLOOD COUNT (AUTO) 6.1 K/uL (4.8-10.8)
[2022-08-21 04:05] LABS: CREATININE 1.1 mg/dL (0.5-1.5); POTASSIUM 3.9 mmol/L (3.5-5.1)
[2022-08-21] MEDS: INSULIN HUMULIN R 100 UNIT/ML 3ML SQ SCH ×4 (06:28→20:36)
[2022-08-21] MEDS: FINASTERIDE 5 MG TABLET PO SCH (08:51)
[2022-08-21] MEDS: FAMOTIDINE 20MG TAB PO SCH (08:51)
[2022-08-21] MEDS: MONTELUKAST SODIUM 10 MG TAB PO SCH (08:51)
[2022-08-21] MEDS: VANCOMYCIN 750MG VIAL IVPB SCH (08:51)
[2022-08-21] MEDS: DULOXETINE HCL 30 MG CAP PO SCH (08:51)
[2022-08-21] MEDS: CLOPIDOGREL 75MG TAB PO SCH (08:52)
[2022-08-21] MEDS: HEPARIN 5,000 UNIT VIAL SQ SCH ×2 (08:57→20:35)
[2022-08-21] MEDS: MUPIROCIN OINTMENT 22 GM TUBE TP SCH ×2 (08:58→20:37)
[2022-08-21] MEDS: Fluticasone/Umeclidin/Vilanter (Trelegy Ellipta 100-62.5- IH SCH (08:59)
[2022-08-21] MEDS: ACETAMINOPHEN 325 MG TAB PO PRN (10:59)
[2022-08-21] MEDS: CEFEPIME HCL 2 GM VIAL IVP SCH (19:07)
[2022-08-21] MEDS: ATORVASTATIN 40 MG TABLET PO SCH (20:34)
[2022-08-21] MEDS: IPRATROPIUM/ALBUTEROL SULFATE 3 ML SOLUTION IH PRN (20:42)
[2022-08-22 04:11] LABS: BASOPHILS % (AUTO) 0.5 % (0.0-5.0); EOSINOPHILS % (AUTO) 2.3 % (0.0-8.0); HEMATOCRIT 39.9 % (42-54); LYMPHOCYTES % (AUTO) 22.7 % (21.0-51.0); MEAN CORPUSCULAR HEMOGLOBIN 32.4 pg (27.0-33.0); MEAN CORPUSCULAR HGB CONC 33.3 g/dL (32.0-36.0); MEAN CORPUSCULAR VOLUME 97.1 fL (79-99); MONOCYTES % (AUTO) 9.2 % (3.0-13.0); NEUTROPHILS % (AUTO) 64.7 % (40.0-77.0); PLATELET COUNT (AUTO) 85 K/uL (130-400); RED BLOOD CELL COUNT(AUTO) 4.11 MIL/uL (4.50-6.20); RED CELL DISTRIBUTION WIDTH 13.5 % (11.0-15.5); WHITE BLOOD COUNT (AUTO) 6.4 K/uL (4.8-10.8)
[2022-08-22 04:17] LABS: CREATININE 1.1 mg/dL (0.5-1.5); POTASSIUM 3.8 mmol/L (3.5-5.1)
[2022-08-22 05:14] VITALS: BP 132/58
[2022-08-22] MEDS: INSULIN HUMULIN R 100 UNIT/ML 3ML SQ SCH ×4 (06:53→20:35)
[2022-08-22] MEDS: IPRATROPIUM/ALBUTEROL SULFATE 3 ML SOLUTION IH PRN (07:26)
[2022-08-22 08:00] VITALS: BP 109/61
[2022-08-22] MEDS ORDERED: LACTULOSE 20 GM/30 ML UDCUP ONE (08:46)
[2022-08-22] MEDS: DULOXETINE HCL 30 MG CAP PO SCH (09:02)
[2022-08-22] MEDS: VANCOMYCIN 750MG VIAL IVPB SCH ×2 (09:02→17:52)
[2022-08-22] MEDS: MONTELUKAST SODIUM 10 MG TAB PO SCH (09:02)
[2022-08-22] MEDS: FAMOTIDINE 20MG TAB PO SCH (09:02)
[2022-08-22] MEDS: CLOPIDOGREL 75MG TAB PO SCH (09:03)
[2022-08-22] MEDS: MUPIROCIN OINTMENT 22 GM TUBE TP SCH ×2 (09:03→21:23)
[2022-08-22] MEDS: FINASTERIDE 5 MG TABLET PO SCH (09:03)
[2022-08-22] MEDS: HEPARIN 5,000 UNIT VIAL SQ SCH ×2 (09:05→20:34)
[2022-08-22] MEDS: Fluticasone/Umeclidin/Vilanter (Trelegy Ellipta 100-62.5- IH SCH (09:06)
[2022-08-22] MEDS ORDERED: LACTULOSE 20 GM/30 ML UDCUP PO PRN (10:30)
[2022-08-22 12:00] VITALS: BP 125/75
[2022-08-22 16:00] VITALS: BP 136/68
[2022-08-22 19:40] VITALS: BP 131/71
[2022-08-22] MEDS: CEFEPIME HCL 2 GM VIAL IVP SCH (20:25)
[2022-08-22] MEDS: ATORVASTATIN 40 MG TABLET PO SCH (20:27)
[2022-08-22 23:53] VITALS: BP 127/59
[2022-08-23 03:47] VITALS: BP 110/72
[2022-08-23 05:07] LABS: HEMATOCRIT 39.2 % (42-54); MEAN CORPUSCULAR HEMOGLOBIN 32.4 pg (27.0-33.0); MEAN CORPUSCULAR HGB CONC 33.2 g/dL (32.0-36.0); MEAN CORPUSCULAR VOLUME 97.8 fL (79-99); RED BLOOD CELL COUNT(AUTO) 4.01 MIL/uL (4.50-6.20); RED CELL DISTRIBUTION WIDTH 13.4 % (11.0-15.5); WHITE BLOOD COUNT (AUTO) 6.6 K/uL (4.8-10.8)
[2022-08-23 05:18] LABS: ALBUMIN 2.6 g/dL (3.5-5.0); POTASSIUM 3.6 mmol/L (3.5-5.1)
[2022-08-23] MEDS ORDERED: ALBUTEROL 0.083% 2.5 MG/3 ML INH IH ONE (06:28)
[2022-08-23] MEDS ORDERED: IPRATROPIUM 0.5 MG/2.5 ML INH IH ONE (06:28)
[2022-08-23] MEDS: VANCOMYCIN 750MG VIAL IVPB SCH (06:45)
[2022-08-23] MEDS: INSULIN HUMULIN R 100 UNIT/ML 3ML SQ SCH ×2 (06:45→12:05)
[2022-08-23 08:00] VITALS: BP 134/66
[2022-08-23] MEDS: Fluticasone/Umeclidin/Vilanter (Trelegy Ellipta 100-62.5- IH SCH (09:00)
[2022-08-23] MEDS: CLOPIDOGREL 75MG TAB PO SCH (09:02)
[2022-08-23] MEDS: DULOXETINE HCL 30 MG CAP PO SCH (09:02)
[2022-08-23] MEDS: MONTELUKAST SODIUM 10 MG TAB PO SCH (09:02)
[2022-08-23] MEDS: FAMOTIDINE 20MG TAB PO SCH (09:03)
[2022-08-23] MEDS: FINASTERIDE 5 MG TABLET PO SCH (09:03)
[2022-08-23] MEDS: HEPARIN 5,000 UNIT VIAL SQ SCH (09:05)
[2022-08-23] MEDS: MUPIROCIN OINTMENT 22 GM TUBE TP SCH (09:08)
[2022-08-23 11:44] VITALS: BP 134/68
[2022-08-23] MEDS ORDERED: LISI5TAB21 PO (12:52)
[2022-08-23] MEDS ORDERED: PANT40TA54 PO (12:52)
[2022-08-23] MEDS ORDERED: SULF1TAB42 PO (12:52)
== END 2022-08-23 15:50 | disposition home or self-care (01) | DRG 871 ==
LOC: EDH 16:04 → EDHIP 18:25 → 2DH 08-19 08:01 → 4CH 08-22 10:38
PROVIDERS: ADMIT Internal Medicine; ATTEND Internal Medicine
DX: A41.89 Other specified sepsis (principal); N17.0 Acute kidney failure with tubular necrosis; E44.1 Mild protein-calorie malnutrition; I95.9 Hypotension, unspecified; E11.621 Type 2 diabetes mellitus with foot ulcer; Z20.822 Contact with and (suspected) exposure to COVID-19; L97.529 Non-pressure chronic ulcer of other part of left foot with unspecified severity; E11.51 Type 2 diabetes mellitus with diabetic peripheral angiopathy without gangrene; E11.40 Type 2 diabetes mellitus with diabetic neuropathy, unspecified; E11.610 Type 2 diabetes mellitus with diabetic neuropathic arthropathy; E66.9 Obesity, unspecified; E78.00 Pure hypercholesterolemia, unspecified; I10 Essential (primary) hypertension; J44.9 Chronic obstructive pulmonary disease, unspecified; L60.0 Ingrowing nail; M19.90 Unspecified osteoarthritis, unspecified site; M20.40 Other hammer toe(s) (acquired), unspecified foot; M21.619 Bunion of unspecified foot; N40.0 Benign prostatic hyperplasia without lower urinary tract symptoms; Z68.31 Body mass index [BMI] 31.0-31.9, adult; Z79.4 Long term (current) use of insulin; Z87.891 Personal history of nicotine dependence; Z83.3 Family history of diabetes mellitus; Z82.49 Family history of ischemic heart disease and other diseases of the circulatory system
CPT/HCPCS: 36415; 71045; 73718; 80048; 80053; 80202; 81001; 82040; 82570; 82948; 83036; 83605; 83630; 83735; 83935; 84100; 84145; 84300; 84484; 85025; 85027; 87040; 87046; 87070; 87076; 87077; 87186; 87324; 87635; 87804; 93005; 93306; 93356; 94640; 94664; 99291; C9803; G0378; J0692; J1644; J1815; J2543; J3370; J7030

== ENCOUNTER 2023-01-15 07:53 | Emergency (ER) | payer MEDICARE ==
[~2023-01-15] VITALS: Ht 162.6 cm; Wt 89.8 kg
[~2023-01-15 07:53] MED LIST changes: +ALBU6.7H14 IH; +DULO30CA52 PO; -FAMO20TA8 PO; +FLUT16H NASAL; +FLUT1BLS3 IH; -FURO20TA4 PO; -FURO40TA5 PO; +INSU100I24 SQ; +INSU100I32 SQ; -LISI40TA9 PO; +LISI5TAB21 PO; -LORA10TA7 PO; -OMEP40CA21 PO; +PANT40TA54 PO; -POTA-79 PO; -SPIR25TA PO; +SULF1TAB42 PO
[2023-01-15 10:20] VITALS: BP 135/68
== END 2023-01-15 11:10 | disposition home or self-care (01) ==
LOC: EDH 07:53
DX: M79.605 Pain in left leg (principal); M79.604 Pain in right leg; E11.9 Type 2 diabetes mellitus without complications; E78.00 Pure hypercholesterolemia, unspecified; I10 Essential (primary) hypertension; J44.9 Chronic obstructive pulmonary disease, unspecified; M19.90 Unspecified osteoarthritis, unspecified site; Z79.4 Long term (current) use of insulin; Z79.84 Long term (current) use of oral hypoglycemic drugs; Z79.899 Other long term (current) drug therapy; Z88.6 Allergy status to analgesic agent
CPT/HCPCS: 74176

== ENCOUNTER 2023-02-24 16:13 | Emergency (ER) | payer MEDICARE, MEDICAID ==
[~2023-02-24] VITALS: Ht 162.6 cm; Wt 88.9 kg
[2023-02-24 16:33] LABS: BASOPHILS % (AUTO) 0.5 % (0.0-5.0); EOSINOPHILS % (AUTO) 2.2 % (0.0-8.0); HEMATOCRIT 40.8 % (42-54); LYMPHOCYTES % (AUTO) 29.2 % (21.0-51.0); MEAN CORPUSCULAR HEMOGLOBIN 32.8 pg (27.0-33.0); MEAN CORPUSCULAR HGB CONC 33.3 g/dL (32.0-36.0); MEAN CORPUSCULAR VOLUME 98.3 fL (79-99); NEUTROPHILS % (AUTO) 57.9 % (40.0-77.0); PLATELET COUNT (AUTO) 81 K/uL (130-400); RED BLOOD CELL COUNT(AUTO) 4.15 MIL/uL (4.50-6.20); RED CELL DISTRIBUTION WIDTH 13.9 % (11.0-15.5); WHITE BLOOD COUNT (AUTO) 4.1 K/uL (4.8-10.8)
[2023-02-24 16:45] LABS: CREATININE 1.3 mg/dL (0.5-1.5)
[2023-02-24 16:52] LABS: APPEARANCE,URINE CLEAR (CLEAR); BILIRUBIN,URINE NEGATIVE (NEGATIVE); COLOR,URINE LIGHT-YELLOW (YELLOW); GLUCOSE, URINE (UA) >=1000 mg/dL (NEGATIVE); KETONES,URINE NEGATIVE (NEGATIVE); LEUKOCYTE ESTERASE ,URINE NEGATIVE Leu/uL (NEGATIVE); NITRATE,URINE NEGATIVE (NEGATIVE); OCCULT BLOOD,URINE SMALL (NEGATIVE); PH,URINE 5.5 (5.0-8.0); PROTEIN,URINE NEGATIVE (NEGATIVE); UROBILINOGEN,URINE 0.2 mg/dL (0.2-1.0)
[2023-02-24 16:58] LABS: ALBUMIN 3.1 g/dL (3.5-5.0); TOTAL PROTEIN, SERUM 7.1 g/dL (6.0-8.3)
[2023-02-24 16:59] LABS: BACTERIA,URINE RARE /HPF (None Seen); SQUAMOUS EPITHELIAL CELL,UR RARE /HPF (0-2)
[2023-02-24] MEDS ORDERED: SULFAMETHOX-TMP DS 800/160 TAB PO SCH (17:00)
[2023-02-24 17:17] LABS: B-TYPE NATRIURETIC PEPTIDE 27 pg/mL (0-100)
[2023-02-24 18:58] VITALS: BP 123/80
== END 2023-02-24 19:05 | disposition home or self-care (01) ==
LOC: EDH 16:13
DX: B34.9 Viral infection, unspecified (principal); I11.0 Hypertensive heart disease with heart failure; E11.9 Type 2 diabetes mellitus without complications; E78.00 Pure hypercholesterolemia, unspecified; J44.9 Chronic obstructive pulmonary disease, unspecified; M19.90 Unspecified osteoarthritis, unspecified site; N40.0 Benign prostatic hyperplasia without lower urinary tract symptoms; Z20.822 Contact with and (suspected) exposure to COVID-19; Z79.84 Long term (current) use of oral hypoglycemic drugs; Z79.899 Other long term (current) drug therapy; Z88.6 Allergy status to analgesic agent; Z88.8 Allergy status to other drugs, medicaments and biological substances
CPT/HCPCS: 99285; 71045; 87635; 82550; 83735; 84484; 80053; 83880; 85025; 87077; 87088; 87186; 87880; 87804 ×2; 83605; 81001; 36415; 93005; C9803

== ENCOUNTER 2023-05-06 03:51 | Emergency (ER) | payer MEDICARE, MEDICAID ==
[~2023-05-06] VITALS: Ht 160 cm; Wt 85.0 kg
[2023-05-06 04:46] LABS: ADD UA MICROSCOPIC YES; APPEARANCE,URINE CLEAR (CLEAR); BILIRUBIN,URINE NEGATIVE (NEGATIVE); COLOR,URINE LIGHT-YELLOW (YELLOW); GLUCOSE, URINE (UA) >=1000 mg/dL (NEGATIVE); KETONES,URINE NEGATIVE (NEGATIVE); LEUKOCYTE ESTERASE ,URINE NEGATIVE Leu/uL (NEGATIVE); NITRATE,URINE NEGATIVE (NEGATIVE); OCCULT BLOOD,URINE NEGATIVE (NEGATIVE); PH,URINE 6.5 (5.0-8.0); PROTEIN,URINE NEGATIVE (NEGATIVE); UROBILINOGEN,URINE 0.2 mg/dL (0.2-1.0)
[2023-05-06 04:49] LABS: BASOPHILS # (AUTO) 0.01 K/uL (0.00-0.20); BASOPHILS % (AUTO) 0.2 % (0.0-5.0); EOSINOPHILS # (AUTO) 0.12 K/uL (0.00-0.70); EOSINOPHILS % (AUTO) 2.8 % (0.0-8.0); HEMATOCRIT 37.1 % (42-54); IMMATURE GRANULOCYTE ABSOLUTE 0.01 K/uL (0-1); LYMPHOCYTES # (AUTO) 1.1 K/uL (1.0-4.8); LYMPHOCYTES % (AUTO) 26.2 % (21.0-51.0); MEAN CORPUSCULAR HEMOGLOBIN 33.8 pg (27.0-33.0); MEAN CORPUSCULAR HGB CONC 34.5 g/dL (32.0-36.0); MEAN CORPUSCULAR VOLUME 97.9 fL (79-99); MONOCYTES # (AUTO) 0.4 K/uL (0.1-1.0); NEUTROPHILS # (AUTO) 2.7 K/uL (1.8-7.7); NEUTROPHILS % (AUTO) 61.6 % (40.0-77.0); PLATELET COUNT (AUTO) 94 K/uL (130-400); RED BLOOD CELL COUNT(AUTO) 3.79 MIL/uL (4.50-6.20); RED CELL DISTRIBUTION WIDTH 12.6 % (11.0-15.5); WHITE BLOOD COUNT (AUTO) 4.4 K/uL (4.8-10.8)
[2023-05-06 04:49] LABS: RBC,URINE 0-1 /HPF (0-1); WBC,URINE 0-1 /HPF (0-1)
[2023-05-06 04:59] LABS: CREATININE 1.1 mg/dL (0.5-1.5); POTASSIUM 3.3 mmol/L (3.5-5.1)
[2023-05-06 05:10] LABS: ALBUMIN 2.7 g/dL (3.5-5.0); BILIRUBIN,TOTAL 0.5 mg/dL (0.2-1.0); TOTAL PROTEIN, SERUM 6.8 g/dL (6.0-8.3)
[2023-05-06] MEDS ORDERED: ACETAMINOPHEN 325 MG TAB PO ONE (06:30)
[2023-05-06 07:33] LABS: SARS-CoV-2, RNA, NAAT NEGATIVE SARS CoV-2 (NEGATIVE)
[2023-05-06 07:52] LABS: INFLUENZA TYPE A Negative For Type A (NEGATIVE); INFLUENZA TYPE B Negative For Type B (NEGATIVE)
[2023-05-06] MEDS ORDERED: CETIRIZINE HCL 5 MG TABLET PO SCH (09:00)
[2023-05-06] MEDS ORDERED: SOLU-MEDROL 40MG VIAL IVP ONE (09:00)
[2023-05-06 10:13] VITALS: BP 146/70; PULSE 61; RESP 17; O2SAT 98
[2023-05-06] MEDS ORDERED: CETI10TA57 PO (10:32)
[2023-05-06] MEDS ORDERED: MOME17SP15 EN (10:32)
[2023-05-06] MEDS ORDERED: POTASSIUM BICARB/CIT AC 25 MEQ TABLET.EFF ONE (10:45)
[2023-05-06] MEDS ORDERED: POTASSIUM BICARB/CIT AC 25 MEQ TABLET.EFF PO ONE (11:15)
== END 2023-05-06 10:53 | disposition home or self-care (01) ==
LOC: EDH 03:51
DX: J32.9 Chronic sinusitis, unspecified (principal); D61.818 Other pancytopenia; I12.9 Hypertensive chronic kidney disease with stage 1 through stage 4 chronic kidney disease, or unspecified chronic kidney disease; E11.22 Type 2 diabetes mellitus with diabetic chronic kidney disease; N18.9 Chronic kidney disease, unspecified; E78.00 Pure hypercholesterolemia, unspecified; J44.9 Chronic obstructive pulmonary disease, unspecified; M19.90 Unspecified osteoarthritis, unspecified site; Z79.02 Long term (current) use of antithrombotics/antiplatelets; Z79.4 Long term (current) use of insulin; Z79.51 Long term (current) use of inhaled steroids; Z79.84 Long term (current) use of oral hypoglycemic drugs; Z79.899 Other long term (current) drug therapy; Z88.6 Allergy status to analgesic agent; Z20.822 Contact with and (suspected) exposure to COVID-19
CPT/HCPCS: 99285; 96374; 70450; 87635; 80053; 85025; 87804 ×2; 81001; 36415; C9803; J2920

== ENCOUNTER 2023-06-03 08:23 | Emergency (ER) | payer MEDICARE ==
[~2023-06-03] VITALS: Ht 162.6 cm; Wt 84.4 kg
[~2023-06-03 08:23] MED LIST changes: +CETI10TA57 PO; -GLIP5TAB11 PO; +GLIP5TAB15 PO; +MOME17SP15 EN
[2023-06-03 08:50] LABS: BASOPHILS # (AUTO) 0.02 K/uL (0.00-0.20); BASOPHILS % (AUTO) 0.6 % (0.0-5.0); EOSINOPHILS # (AUTO) 0.15 K/uL (0.00-0.70); EOSINOPHILS % (AUTO) 4.2 % (0.0-8.0); HEMATOCRIT 36.6 % (42-54); IMMATURE GRANULOCYTE ABSOLUTE 0.01 K/uL (0-1); LYMPHOCYTES # (AUTO) 1.2 K/uL (1.0-4.8); LYMPHOCYTES % (AUTO) 32.1 % (21.0-51.0); MEAN CORPUSCULAR HEMOGLOBIN 33.3 pg (27.0-33.0); MEAN CORPUSCULAR HGB CONC 33.9 g/dL (32.0-36.0); MEAN CORPUSCULAR VOLUME 98.4 fL (79-99); MONOCYTES # (AUTO) 0.3 K/uL (0.1-1.0); MONOCYTES % (AUTO) 9.4 % (3.0-13.0); NEUTROPHILS # (AUTO) 1.9 K/uL (1.8-7.7); NEUTROPHILS % (AUTO) 53.4 % (40.0-77.0); PLATELET COUNT (AUTO) 90 K/uL (130-400); RED BLOOD CELL COUNT(AUTO) 3.72 MIL/uL (4.50-6.20); RED CELL DISTRIBUTION WIDTH 13.2 % (11.0-15.5); WHITE BLOOD COUNT (AUTO) 3.6 K/uL (4.8-10.8)
[2023-06-03 08:59] LABS: CREATININE 1.2 mg/dL (0.5-1.5); POTASSIUM 3.6 mmol/L (3.5-5.1)
[2023-06-03 09:00] LABS: INR 0.98 (0.85-1.15); PROTHROMBIN TIME 11.4 SEC (9.6-11.6)
[2023-06-03 09:02] LABS: PARTIAL THROMBOPLASTIN TIME 27.7 SEC (26.3-35.5)
[2023-06-03 09:05] LABS: B-TYPE NATRIURETIC PEPTIDE 15 pg/mL (0-100)
[2023-06-03 09:08] LABS: ALBUMIN 2.8 g/dL (3.5-5.0); BILIRUBIN,TOTAL 0.6 mg/dL (0.2-1.0); TOTAL PROTEIN, SERUM 6.9 g/dL (6.0-8.3)
[2023-06-03 09:27] LABS: SARS-CoV-2, RNA, NAAT NEGATIVE SARS CoV-2 (NEGATIVE)
[2023-06-03 09:31] LABS: INFLUENZA TYPE A Negative For Type A (NEGATIVE); INFLUENZA TYPE B Negative For Type B (NEGATIVE)
[2023-06-03] MEDS ORDERED: D-ME118S56 PO (10:25)
[2023-06-03 10:57] VITALS: BP 129/57; PULSE 63; RESP 18; O2SAT 100
== END 2023-06-03 10:58 | disposition home or self-care (01) ==
LOC: EDH 08:23
DX: U07.1 COVID-19 (principal); J06.9 Acute upper respiratory infection, unspecified; R05.9 Cough, unspecified; M19.90 Unspecified osteoarthritis, unspecified site; I12.9 Hypertensive chronic kidney disease with stage 1 through stage 4 chronic kidney disease, or unspecified chronic kidney disease; E11.22 Type 2 diabetes mellitus with diabetic chronic kidney disease; N18.9 Chronic kidney disease, unspecified; E78.00 Pure hypercholesterolemia, unspecified; J44.9 Chronic obstructive pulmonary disease, unspecified; Z79.02 Long term (current) use of antithrombotics/antiplatelets; Z79.4 Long term (current) use of insulin; Z79.51 Long term (current) use of inhaled steroids; Z79.84 Long term (current) use of oral hypoglycemic drugs; Z79.899 Other long term (current) drug therapy; Z88.6 Allergy status to analgesic agent
CPT/HCPCS: 99285; 71045; 87635; 82550; 83874; 84484; 80053; 83880; 85025; 85610; 85730; 87880; 87804 ×2; 36415; 93005; C9803

== ENCOUNTER 2024-02-27 19:37 | Emergency (ER) | payer MEDICARE, MEDICAID ==
[~2024-02-27] VITALS: Ht 162.6 cm; Wt 84.4 kg
[~2024-02-27 19:37] MED LIST changes: +D-ME118S56 PO
[2024-02-27 20:43] LABS: BASOPHILS # (AUTO) 0.02 K/uL (0.00-0.20); BASOPHILS % (AUTO) 0.6 % (0.0-5.0); EOSINOPHILS % (AUTO) 2.9 % (0.0-8.0); HEMATOCRIT 37.2 % (42-54); IMMATURE GRANULOCYTE ABSOLUTE 0.01 K/uL (0-1); LYMPHOCYTES # (AUTO) 1.1 K/uL (1.0-4.8); LYMPHOCYTES % (AUTO) 31.2 % (21.0-51.0); MEAN CORPUSCULAR HEMOGLOBIN 34.5 pg (27.0-33.0); MEAN CORPUSCULAR HGB CONC 34.4 g/dL (32.0-36.0); MEAN CORPUSCULAR VOLUME 100.3 fL (79-99); MONOCYTES # (AUTO) 0.2 K/uL (0.1-1.0); MONOCYTES % (AUTO) 6.4 % (3.0-13.0); NEUTROPHILS % (AUTO) 58.6 % (40.0-77.0); PLATELET COUNT (AUTO) 73 K/uL (130-400); RED BLOOD CELL COUNT(AUTO) 3.71 MIL/uL (4.50-6.20); RED CELL DISTRIBUTION WIDTH 12.9 % (11.0-15.5); WHITE BLOOD COUNT (AUTO) 3.4 K/uL (4.8-10.8)
[2024-02-27 20:53] LABS: CREATININE 1.1 mg/dL (0.5-1.3); POTASSIUM 4.3 mmol/L (3.5-5.1)
[2024-02-27 21:02] LABS: MAGNESIUM 1.8 mg/dL (1.80-2.40)
[2024-02-27 21:05] LABS: B-TYPE NATRIURETIC PEPTIDE 26 pg/mL (0-100)
[2024-02-27 21:47] LABS: RAPID GROUP A STREP negative (NEGATIVE)
[2024-02-27 21:50] VITALS: BP 143/64; PULSE 73; RESP 18; O2SAT 97
[2024-02-27 21:51] LABS: SARS-CoV-2, RNA, NAAT NEGATIVE SARS CoV-2 (NEGATIVE)
[2024-02-27 21:57] LABS: INFLUENZA TYPE A Negative For Type A (NEGATIVE); INFLUENZA TYPE B Negative For Type B (NEGATIVE)
[2024-02-27] MEDS ORDERED: FLUT16H NASAL (22:59)
[2024-02-27] MEDS ORDERED: LORA10TA7 PO (22:59)
[2024-02-27] MEDS: ACETAMINOPHEN 500 MG TABLET PO SCH (23:08)
[2024-02-27] MEDS: GUAIFENESIN 600 MG TABLET.ER PO SCH (23:08)
[2024-02-27] MEDS: INSULIN HUMULIN R 100 UNIT/ML 3ML IV SCH (23:09)
== END 2024-02-27 23:42 | disposition home or self-care (01) ==
LOC: EDH 19:37
DX: J32.9 Chronic sinusitis, unspecified (principal); E11.65 Type 2 diabetes mellitus with hyperglycemia; E11.22 Type 2 diabetes mellitus with diabetic chronic kidney disease; I12.9 Hypertensive chronic kidney disease with stage 1 through stage 4 chronic kidney disease, or unspecified chronic kidney disease; N18.9 Chronic kidney disease, unspecified; E78.00 Pure hypercholesterolemia, unspecified; J44.9 Chronic obstructive pulmonary disease, unspecified; M19.90 Unspecified osteoarthritis, unspecified site; Z88.6 Allergy status to analgesic agent; Z79.84 Long term (current) use of oral hypoglycemic drugs; Z79.4 Long term (current) use of insulin; Z79.02 Long term (current) use of antithrombotics/antiplatelets; Z79.899 Other long term (current) drug therapy; Z20.822 Contact with and (suspected) exposure to COVID-19
CPT/HCPCS: 99285; 96374; 71045; 87635; 83735; 84484; 80048; 83880; 85025; 87880; 87804 ×2; 82948; 83605; 36415; 93005; J1815

== ENCOUNTER → 2024-03-17 | Outpatient (CLI) | payer MEDICAID, MEDICARE, SELFPAY ==
[~2024-03-17] MED LIST changes: +LORA10TA7 PO
== END | disposition home or self-care (01) ==
LOC: RAH 09:03
PROVIDERS: ATTEND Internal Medicine Interventional Cardiology
DX: Z13.6 Encounter for screening for cardiovascular disorders (principal)
CPT/HCPCS: 75571

== ENCOUNTER 2024-05-09 10:08 | Emergency (ER) | payer MEDICARE ==
[~2024-05-09] VITALS: Ht 160 cm; Wt 89.8 kg
[2024-05-09 10:58] LABS: RAPID GROUP A STREP negative (NEGATIVE)
[2024-05-09 11:07] LABS: INFLUENZA TYPE A Negative For Type A (NEGATIVE); INFLUENZA TYPE B Negative For Type B (NEGATIVE); SARS-CoV-2, RNA, NAAT NEGATIVE SARS CoV-2 (NEGATIVE)
[2024-05-09 11:17] LABS: BASOPHILS # (AUTO) 0.01 K/uL (0.00-0.20); BASOPHILS % (AUTO) 0.3 % (0.0-5.0); EOSINOPHILS % (AUTO) 2.9 % (0.0-8.0); HEMATOCRIT 33.3 % (42-54); IMMATURE GRANULOCYTE ABSOLUTE 0.01 K/uL (0-1); LYMPHOCYTES # (AUTO) 0.8 K/uL (1.0-4.8); LYMPHOCYTES % (AUTO) 24.6 % (21.0-51.0); MEAN CORPUSCULAR HEMOGLOBIN 34.6 pg (27.0-33.0); MEAN CORPUSCULAR HGB CONC 34.8 g/dL (32.0-36.0); MEAN CORPUSCULAR VOLUME 99.4 fL (79-99); MONOCYTES # (AUTO) 0.3 K/uL (0.1-1.0); MONOCYTES % (AUTO) 8.5 % (3.0-13.0); NEUTROPHILS # (AUTO) 2.2 K/uL (1.8-7.7); NEUTROPHILS % (AUTO) 63.4 % (40.0-77.0); PLATELET COUNT (AUTO) 59 K/uL (130-400); RED BLOOD CELL COUNT(AUTO) 3.35 MIL/uL (4.50-6.20); WHITE BLOOD COUNT (AUTO) 3.4 K/uL (4.8-10.8)
[2024-05-09 11:25] LABS: CREATININE 1.2 mg/dL (0.5-1.3); POTASSIUM 3.6 mmol/L (3.5-5.1)
[2024-05-09 12:02] LABS: APPEARANCE,URINE CLEAR (CLEAR); BILIRUBIN,URINE NEGATIVE (NEGATIVE); COLOR,URINE YELLOW (YELLOW); GLUCOSE, URINE (UA) 50 mg/dL (NEGATIVE); KETONES,URINE NEGATIVE (NEGATIVE); LEUKOCYTE ESTERASE ,URINE NEGATIVE Leu/uL (NEGATIVE); NITRATE,URINE NEGATIVE (NEGATIVE); OCCULT BLOOD,URINE NEGATIVE (NEGATIVE); PROTEIN,URINE 20 mg/dL (NEGATIVE)
[2024-05-09 12:06] LABS: ADD UA MICROSCOPIC YES
[2024-05-09 12:08] LABS: MUCUS,URINE RARE LPF (None Seen); RBC,URINE 0-1 /HPF (0-1); SQUAMOUS EPITHELIAL CELL,UR RARE /HPF (0-2); WBC,URINE 0-1 /HPF (0-1)
[2024-05-09 12:47] LABS: PLATELET MORPHOLOGY COMMENT DECREASED
[2024-05-09] MEDS ORDERED: LORA10TA7 PO (13:11)
[2024-05-09] MEDS ORDERED: FLUT16H NASAL (13:11)
[2024-05-09 14:06] VITALS: BP 142/78; PULSE 78; RESP 16; TEMP 97.8; O2SAT 97
== END 2024-05-09 14:10 | disposition home or self-care (01) ==
LOC: EDH 10:08
DX: J32.9 Chronic sinusitis, unspecified (principal); Z20.822 Contact with and (suspected) exposure to COVID-19; E11.65 Type 2 diabetes mellitus with hyperglycemia; E11.51 Type 2 diabetes mellitus with diabetic peripheral angiopathy without gangrene; M19.90 Unspecified osteoarthritis, unspecified site; J44.9 Chronic obstructive pulmonary disease, unspecified; I10 Essential (primary) hypertension; Z88.6 Allergy status to analgesic agent; Z88.8 Allergy status to other drugs, medicaments and biological substances; Z79.899 Other long term (current) drug therapy; Z79.4 Long term (current) use of insulin; Z79.84 Long term (current) use of oral hypoglycemic drugs; Z79.82 Long term (current) use of aspirin; Z98.890 Other specified postprocedural states
CPT/HCPCS: 36415; 71045; 80048; 81001; 85025; 87635; 87804; 87880; 93005

== ENCOUNTER 2024-06-16 20:16 | Emergency (ER) | payer MEDICARE ==
[~2024-06-16] VITALS: Ht 162.6 cm; Wt 88.5 kg
[2024-06-16 20:48] LABS: BASOPHILS # (AUTO) 0.02 K/uL (0.00-0.20); BASOPHILS % (AUTO) 0.4 % (0.0-5.0); EOSINOPHILS # (AUTO) 0.16 K/uL (0.00-0.70); EOSINOPHILS % (AUTO) 3.4 % (0.0-8.0); HEMATOCRIT 34.6 % (42-54); IMMATURE GRANULOCYTE ABSOLUTE 0.01 K/uL (0-1); LYMPHOCYTES # (AUTO) 1.2 K/uL (1.0-4.8); LYMPHOCYTES % (AUTO) 25.5 % (21.0-51.0); MEAN CORPUSCULAR HEMOGLOBIN 35.2 pg (27.0-33.0); MEAN CORPUSCULAR VOLUME 100.6 fL (79-99); MONOCYTES # (AUTO) 0.5 K/uL (0.1-1.0); NEUTROPHILS # (AUTO) 2.8 K/uL (1.8-7.7); NEUTROPHILS % (AUTO) 60.5 % (40.0-77.0); PLATELET COUNT (AUTO) 83 K/uL (130-400); RED BLOOD CELL COUNT(AUTO) 3.44 MIL/uL (4.50-6.20); RED CELL DISTRIBUTION WIDTH 12.5 % (11.0-15.5); WHITE BLOOD COUNT (AUTO) 4.7 K/uL (4.8-10.8)
[2024-06-16 20:50] LABS: APPEARANCE,URINE CLEAR (CLEAR); BILIRUBIN,URINE NEGATIVE (NEGATIVE); COLOR,URINE YELLOW (YELLOW); GLUCOSE, URINE (UA) NEGATIVE (NEGATIVE); KETONES,URINE NEGATIVE (NEGATIVE); LEUKOCYTE ESTERASE ,URINE NEGATIVE Leu/uL (NEGATIVE); NITRATE,URINE NEGATIVE (NEGATIVE); OCCULT BLOOD,URINE NEGATIVE (NEGATIVE); PH,URINE 7.5 (5.0-8.0); PROTEIN,URINE 10 mg/dL (NEGATIVE); UROBILINOGEN,URINE 6 mg/dL (0.2-1.0)
[2024-06-16 20:57] LABS: ADD UA MICROSCOPIC YES
[2024-06-16 20:58] LABS: CREATININE 1.1 mg/dL (0.5-1.3); POTASSIUM 3.8 mmol/L (3.5-5.1)
[2024-06-16 21:04] LABS: BACTERIA,URINE RARE /HPF (None Seen); SQUAMOUS EPITHELIAL CELL,UR RARE /HPF (0-2); WBC,URINE 0-1 /HPF (0-1)
[2024-06-16 21:05] LABS: RAPID GROUP A STREP negative (NEGATIVE)
[2024-06-16 21:07] LABS: SARS-CoV-2, RNA, NAAT NEGATIVE SARS CoV-2 (NEGATIVE)
[2024-06-16 21:13] LABS: INFLUENZA TYPE A Negative For Type A (NEGATIVE); INFLUENZA TYPE B Negative For Type B (NEGATIVE)
[2024-06-16] MEDS ORDERED: AMOX-426 PO (23:59)
[2024-06-17 00:22] VITALS: BP 155/65; PULSE 72; RESP 18; TEMP 98.5; O2SAT 98
== END 2024-06-17 00:29 | disposition home or self-care (01) ==
LOC: EDH 20:16
DX: J32.9 Chronic sinusitis, unspecified (principal); J33.9 Nasal polyp, unspecified; H93.8X9 Other specified disorders of ear, unspecified ear; I12.9 Hypertensive chronic kidney disease with stage 1 through stage 4 chronic kidney disease, or unspecified chronic kidney disease; E11.22 Type 2 diabetes mellitus with diabetic chronic kidney disease; N18.9 Chronic kidney disease, unspecified; E11.51 Type 2 diabetes mellitus with diabetic peripheral angiopathy without gangrene; E78.00 Pure hypercholesterolemia, unspecified; J44.9 Chronic obstructive pulmonary disease, unspecified; M19.90 Unspecified osteoarthritis, unspecified site; Z20.822 Contact with and (suspected) exposure to COVID-19; Z79.02 Long term (current) use of antithrombotics/antiplatelets; Z79.4 Long term (current) use of insulin; Z79.51 Long term (current) use of inhaled steroids; Z79.84 Long term (current) use of oral hypoglycemic drugs; Z79.899 Other long term (current) drug therapy; Z88.6 Allergy status to analgesic agent; Z98.890 Other specified postprocedural states
CPT/HCPCS: 36415; 70486; 71045; 80048; 81001; 83690; 83880; 84484; 85025; 85378; 87635; 87804; 87880

== ENCOUNTER 2024-09-20 21:31 | Observation (INO) | payer MEDICARE ==
[~2024-09-20] VITALS: Ht 162.6 cm; Wt 85.1 kg
[~2024-09-20 21:31] MED LIST changes: +ACET-3859 PO; -ACET325T51 PO; +AMOX-426 PO
--- NOTE | 2024-09-20 21:39 | NUR ---
COVID AND FLU SWABS COLLECTED FOR ANY FUTURE ORDERS
[2024-09-20] MEDS: PANTOPrazole 40 MG/VIAL IVP ONE (22:10)
[2024-09-20] MEDS: 0.9%NACL 1000ML 1,000 ML IV ONE (22:10)
[2024-09-20] MEDS: ondanSETRON 4MG INJ IVP ONE (22:10)
[2024-09-20] MEDS: acetaMINOPHEN 325 MG TAB PO ONE (22:11)
[2024-09-20 22:15] LABS: BASOPHILS # (AUTO) 0.02 K/uL (0.00-0.20); BASOPHILS % (AUTO) 0.4 % (0.0-5.0); EOSINOPHILS # (AUTO) 0.17 K/uL (0.00-0.70); EOSINOPHILS % (AUTO) 3.5 % (0.0-8.0); HEMATOCRIT 37.1 % (42-54); IMMATURE GRANULOCYTE ABSOLUTE 0.01 K/uL (0-1); LYMPHOCYTES % (AUTO) 20.9 % (21.0-51.0); MEAN CORPUSCULAR HEMOGLOBIN 33.4 pg (27.0-33.0); MEAN CORPUSCULAR HGB CONC 33.7 g/dL (32.0-36.0); MEAN CORPUSCULAR VOLUME 99.2 fL (79-99); MONOCYTES # (AUTO) 0.4 K/uL (0.1-1.0); MONOCYTES % (AUTO) 8.8 % (3.0-13.0); NEUTROPHILS # (AUTO) 3.2 K/uL (1.8-7.7); NEUTROPHILS % (AUTO) 66.2 % (40.0-77.0); PLATELET COUNT (AUTO) 295 K/uL (130-400); RED BLOOD CELL COUNT(AUTO) 3.74 MIL/uL (4.50-6.20); RED CELL DISTRIBUTION WIDTH 13.1 % (11.0-15.5); WHITE BLOOD COUNT (AUTO) 4.9 K/uL (4.8-10.8)
[2024-09-20 22:23] LABS: CREATININE 1.2 mg/dL (0.5-1.3); POTASSIUM 3.5 mmol/L (3.5-5.1)
[2024-09-20 22:29] LABS: COVID19 (SARS ANTIGEN RAPID) PRESUMPTIVE NEGATIVE (NEGATIVE); INFLUENZA TYPE A Negative For Type A (NEGATIVE); INFLUENZA TYPE B Negative For Type B (NEGATIVE)
--- NOTE | 2024-09-20 22:30 | HMCIMG ---
CT HEAD/BRAIN W/O CONTRAST HISTORY: Headaches COMPARISON: None TECHNIQUE: Multiple sequential axial images of the head were obtained from the base of the skull through vertex. Patient was not given contrast through intravenous route. FINDINGS: The ventricles and extraventricular CSF spaces are dilated consistent with cerebral atrophy. Nonspecific white matter changes seen. There is no midline shift, mass effect or herniation. No acute intracranial bleed is seen. There are bilateral ethmoid and maxillary sinusitis with mucoperiosteal thickening. IMPRESSION: 1. No acute intracranial bleed is seen. 2. Atrophy with white matter changes. CT was performed with one or more following dose reduction techniques: automated exposure control, adjustment of the mA and kv according to patient's size, or use of a iterative reconstruction technique.
[2024-09-20 22:38] LABS: BILIRUBIN,DIRECT 0.3 mg/dL (0.0-0.3); MAGNESIUM 1.7 mg/dL (1.80-2.40); TOTAL PROTEIN, SERUM 6.9 g/dL (6.0-8.3)
--- NOTE | 2024-09-20 22:55 | HMCIMG ---
CT ABDOMEN/PELVIS W/O CONTRAST HISTORY: Abdominal pain COMPARISON: 01/15/2023 TECHNIQUE: Multiple sequential axial images of the abdomen and pelvis were obtained from the dome of the diaphragm through symphysis pubis. Patient was not given contrast through intravenous route. Oral contrast was not given. FINDINGS: No pleural effusion is seen bilaterally. There is no evidence of parenchymal disease or pulmonary nodule of the visualized lower lungs. Degenerative changes of the thoracolumbar spine are present. The heart is not enlarged. Small gallstones are suspected in the gallbladder. There is mild gastric distention small bowel dilatation. This may be related to enteritis. Early bowel obstruction not completely excluded. Spleen is enlarged measuring 17 cm. The liver, spleen, adrenal glands and pancreas are unremarkable. There is no evidence of hydronephrosis bilaterally. No evidence of renal stone is seen. Fecal material is seen in the colon. There are normal size retroperitoneal and mesenteric lymph nodes. No ascites is seen. Atherosclerotic changes are present. No CT evidence of acute appendicitis is seen. There is mild diverticulosis. Pelvic sidewalls are symmetric bilaterally. Bladder is well distended without wall thickening. IMPRESSION: 1. Small gallstones suspected in the gallbladder. There may be enteritis with early bowel obstruction not excluded. Mild diverticulosis. CT was performed with one or more following dose reduction techniques: automated exposure control, adjustment of the mA and kv according to patient's size, or use of a iterative reconstruction technique.
[2024-09-21 00:40] LABS: APPEARANCE,URINE CLEAR (CLEAR); BILIRUBIN,URINE NEGATIVE (NEGATIVE); COLOR,URINE LIGHT-YELLOW (YELLOW); GLUCOSE, URINE (UA) 50 mg/dL (NEGATIVE); KETONES,URINE NEGATIVE (NEGATIVE); LEUKOCYTE ESTERASE ,URINE NEGATIVE Leu/uL (NEGATIVE); NITRATE,URINE NEGATIVE (NEGATIVE); OCCULT BLOOD,URINE NEGATIVE (NEGATIVE); PROTEIN,URINE NEGATIVE (NEGATIVE)
[2024-09-21 00:56] LABS: ADD UA MICROSCOPIC YES
[2024-09-21 01:02] LABS: BACTERIA,URINE RARE /HPF (None Seen); SQUAMOUS EPITHELIAL CELL,UR RARE /HPF (0-2); WBC,URINE 0-1 /HPF (0-1)
--- NOTE | 2024-09-21 01:26 | HP ---
[facility] HISTORY AND PHYSICAL Date of Service: Sep 21, 2024 Time of Service: 01:26 JOHN STROUD MD (PCP) Supervising physician: Dr. Casey and Dr. Rosa Isela Grant HISTORY OF PRESENT ILLNESS: Mr. Moreno is a 74-year-old male with a history of COPD, DM, hypercholesteremia, hypertension, PVD, arthritis, and CAD who presented to [facility] for evaluation of headache, nausea, nonbloody vomit, epigastric pain onset yesterday. The patient reported he had a bowel movement this morning. The ozzy ent reported that he has been struggling with constipation and his PCP gave him some stool softeners. The patient also complains of a cough. The patient denied any fever or chills. CT abdomen/pelvis without contrast: 1. Small gallstones suspected in the gallbladder. There may be enteritis with early bowel obstruction not excluded. Mild diverticulosis. CT of the head: IMPRESSION: 1. No acute intracranial bleed is seen. 2. Atrophy with white matter changes. ED provider request patient be admitted with the diagnosis of nausea, and vomiting, headache, anemia. ED provider request patient be admitted with the diagnosis of the nausea and vomiting, headache, anemia. Patient was seen/assessed by me in room 17. No family at bedside. Patient's breathing was even, unlabored, in no distress. Abdomen is soft and nontender. Patient denied any pain. I informed the patient of labs, diagnosis, plan of care. He verbalized understanding and is in agreement with the plan. Plan and assessment are listed below. REVIEW OF SYSTEMS ROS reviewed with patient. All positives mentioned above. Otherwise negative, noncontributory, or non-pertinent. Past Medical History: Arthritis, COPD, Diabetes-Type II, High Cholesterol, Hypertension, PVD Surgical History Other: LEFT FOOT SX Family History: Negative Social History: Negative, Lives with family Coded Allergies: ibuprofen (Unverified Allergy, Unknown, 01/27/19) metformin (Unverified Allergy, Unknown, 09/08/19) PHYSICAL EXAM GENERAL APPEARANCE: The patient is awake, alert, and oriented, in no acute cardiopulmonary distress. NEUROLOGICAL: Cranial nerves II-XII grossly intact. Motor is 5/5 in bilateral upper and lower extremities proximal to distal. No sensory deficits. HEENT: Face is symmetric. Pupils are equal and reactive. Extraocular movements are intact. NECK: Supple. No JVD. No thyromegaly. No submental, submandibular, pre- /postauricular, occipital or supraclavicular lymphadenopathy. CHEST: Normal chest expansion. No Telemetry. LUNGS: Absence of any rales, rhonchi or any wheezing. CARDIOVASCULAR: Regular. S1 and S2 normal. No appreciable rubs, murmurs or gallops. ABDOMEN: Soft, nontender, and nondistended. There is no rebound, voluntary guarding, or rigidity. : Deferred. No Wilson. EXTREMITIES: Non-edematous and not cyanotic. No clubbing. Good capillary refill. SKIN: No skin breakdown. Vital Sign (Last 24 Hours) 09/21/24 00:43 Temp 98.1 Pulse 82 Resp 18 B/P (MAP) 134/63 Pulse Ox 98 O2 Delivery Room Air* O2 Flow Rate 0 FiO2 21 LABS: Laboratory: Test 09/21/24 00:02 09/20/24 21:59 09/20/24 21:39 Range/Units Urine Color LIGHT-YELLOW YELLOW Urine Appearance CLEAR CLEAR Urine pH 6.0 5.0-8.0 Urine Specific [place] 1.016 1.001-1.031 Urine Protein NEGATIVE NEGATIVE mg/dL Urine Glucose (UA) 50 H NEGATIVE mg/dL Urine Ketones NEGATIVE NEGATIVE mg/dL Urine Occult Blood NEGATIVE NEGATIVE Urine Nitrate NEGATIVE NEGATIVE Urine Bilirubin NEGATIVE NEGATIVE mg/dL Urine Urobilinogen 2.0 H 0.2-1.0 mg/dL Urine Leukocyte Esterase NEGATIVE NEGATIVE Naeem/uL Urine RBC None 0-1 /HPF Urine WBC 0-1 0-1 /HPF Urine Squamous Epithelial Cells RARE 0-2 /HPF Urine Bacteria RARE None Seen /HPF White Blood Count 4.9 4.8-10.8 K/uL Red Blood Count 3.74 L 4.50-6.20 MIL/uL Hemoglobin 12.5 L 14.0-18.0 g/dL Hematocrit 37.1 L 42-54 % Mean Corpuscular Volume 99.2 H 79-99 fL Mean Corpuscular Hemoglobin 33.4 H 27.0-33.0 pg Mean Corpuscular Hemoglobin Concent 33.7 32.0-36.0 g/dL Red Cell Distribution Width 13.1 11.0-15.5 % Platelet Count 295 130-400 K/uL Mean Platelet Volume 9.9 7.5-10.5 fL Immature Granulocyte % (Auto) 0.2 0-1 % Neutrophils (%) (Auto) 66.2 40.0-77.0 % Lymphocytes (%) (Auto) 20.9 L 21.0-51.0 % Monocytes (%) (Auto) 8.8 3.0-13.0 % Eosinophils (%) (Auto) 3.5 0.0-8.0 % Basophils (%) (Auto) 0.4 0.0-5.0 % Neutrophils # (Auto) 3.2 1.8-7.7 K/uL Lymphocytes # (Auto) 1.0 1.0-4.8 K/uL Monocytes # (Auto) 0.4 0.1-1.0 K/uL Eosinophils # (Auto) 0.17 0.00-0.70 K/uL Basophils # (Auto) 0.02 0.00-0.20 K/uL Absolute Immature Granulocyte (auto 0.01 0-1 K/uL Nucleated Red Blood Cells 0.0 0.0-0.19 % Sodium Level 139 136-145 mmol/L Potassium Level 3.5 3.5-5.1 mmol/L Chloride Level 105 101-111 mmol/L Carbon Dioxide Level 27 21-32 mmol/L Blood Urea Nitrogen 18 7-18 mg/dL Creatinine 1.2 0.5-1.3 mg/dL Glomerular Filtration Rate Calc 64 >90 mL/min Random Glucose 164 H 70-105 mg/dL Total Calcium 8.3 L 8.5-10.1 mg/dL Magnesium Level 1.70 L 1.80-2.40 mg/dL Total Bilirubin 1.0 0.2-1.0 mg/dL Direct Bilirubin 0.3 0.0-0.3 mg/dL Aspartate Amino Transf (AST/SGOT) 39 H 10-37 U/L Alanine Aminotransferase (ALT/SGPT) 39 12-78 U/L Alkaline Phosphatase 137 H 50-136 U/L Total Creatine Kinase 88 # 21-232 U/L Troponin I High Sensitivity 10 4-75 ng/L Total Protein 6.9 6.0-8.3 g/dL Albumin 3.0 L 3.5-5.0 g/dL Lipase 41 16-77 U/L Influenza Type A Antigen Negative For Type A NEGATIVE Influenza Type B Antigen Negative For Type B NEGATIVE SARS-CoV-2 Antigen (Rapid) PRESUMPTIVE NEGATIVE NEGATIVE DIAGNOSTICS / RADIOLOGY: [ ] ASSESSMENT: Nausea and vomiting, enteritis versus early bowel obstruction Diverticulosis Anemia Headache Hyperglycemia Electrolyte derangement (hypomagnesemia, hypocalcemia) Transaminitis Malnutrition/hypoalbuminemia PLAN: Admit patient to medical floor. Start LR at 100 mL an hour. Start doxycycline 100 mg IV b.i.d. Deescalate antibiotics when appropriate. Consults general surgeon for evaluation of early bowel obstruction versus enteritis. P.r.n. medications for: Pain management, fever, Nausea, vomiting, constipation, hypertension. DVT and GI prophylaxis: SCDs and Protonix Oxygen therapy as needed to keep SpO2 equal to greater than 92%. Glucometer checks a.c. and HS with insulin regular sliding scale coverage as needed per protocol. Blood pressure checks every4 hours and as needed. Reconcile home medications once available. Monitor renal and liver function. Monitor electrolytes and treat accordingly. A.m. labs: CBC, CMP, Mag, phos, TSH, A1c. GI and DVT prophylaxis: Protonix and Lovenox. ADVANCED CARE PLANNING 1. Which of the following were discussed? Hospice Care - No Therapeutic options - Yes Advance Directives - Yes Other discussions - 2. Discussed with who? Patient 3. Voluntary nature of this service was explained to the patient? Yes 4. Amount of time spent - ___ over 35 minutes ____ 5. Reviewed by Physician? (if this service was performed by NPP) Yes / No Patient seen and examined by me. Agree with note by [employer] SEE ADDITIONAL ORDERS PER CHART DISCUSSED WITH NURSING STAFF HERLINDA POTTS Sep 21, 2024 01:26
--- NOTE | 2024-09-21 01:27 | ERN ---
ED Note History of Present Illness Stated Complaint: HEADACHES Chief Complaint: Nausea,Vomiting,Diarrhea Time Seen by MD: 21:34 Time Seen by Midlevel: 21:34 Dictation: The patient is a 74-year-old male with a history of diabetes, arthritis, CAD who presents to the emergency department with complaints of headache, nausea nonbloody vomiting, epigastric pain onset yesterday. Patient reports he had a bowel movement this morning. Reports the he has been struggling with constipation and his PCP gave him some stool softeners. Denies any fevers but reports cough. Allergies: Coded Allergies: ibuprofen (Unverified Allergy, Unknown, 01/27/19) metformin (Unverified Allergy, Unknown, 09/08/19) Home Meds Active Scripts Amoxicillin/Potassium Clav (Augmentin 500-125 Tablet) 500 Mg-125 Mg Tablet, 1 TAB PO BID for 10 Days, #20 TAB 0 Refills Prov:SAMIA WINN MD 06/16/24 Fluticasone Propionate (Flonase Nasal [place]) 50 Mcg/Actuation [place], 50 MCG NASAL BID for 10 Days, #1 UNIT Prov:VALERIA HELM NP 05/09/24 Loratadine (Claritin) 10 Mg Tab, 10 MG PO DAILY, #30 TAB Prov:VALERIA HELM NP 05/09/24 Fluticasone Propionate (Flonase Nasal [place]) 50 Mcg/Actuation [place], 50 MCG NASAL BID, #1 BOTTLE 0 Refills Prov:MALENA UNGER NP 02/27/24 Loratadine (Loratadine) 10 Mg Tablet, 10 MG PO DAILY for 14 Days, #14 TAB 0 Refills Prov:MALENA UNGER NP 02/27/24 D-Methorphan Hb/P-Epd HCl/Bpm (Ltxxpuydnl-Amiygzglfet-Yl Syr) 2 Mg-30 Mg-10 Mg/5 Ml Syrup, 118 ML PO BID, #60 ML Prov:BEBE BRIDGES MD 06/03/23 Cetirizine HCl (Cetirizine HCl) 10 Mg Tablet, 10 MG PO DAILY for 14 Days, #14 TAB 0 Refills Prov:SUJIT SAAB MD 05/06/23 Mometasone Furoate (Nasonex 24Hr Allergy) 17 Ml [place].pump, 1 SPRAY EN BID for 14 Days, #1 PUMP 0 Refills Prov:SUJIT SAAB MD 05/06/23 Pantoprazole Sodium (Pantoprazole Sodium) 40 Mg Tablet.dr, 40 MG PO DAILY, #30 TAB 2 Refills Prov:PERLA FRYE APRN 08/23/22 Sulfamethoxazole/Trimethoprim (Bactrim Ds Tablet) 1 Each Tablet, 1 TAB PO BID for 14 Days, #28 TAB 0 Refills Prov:PERLA FRYE GAS STATION CASHIER 08/23/22 Lisinopril (Lisinopril) 5 Mg Tablet, 5 MG PO DAILY, #7 TAB 0 Refills Prov:PERLA FRYE GAS STATION CASHIER 08/23/22 Atorvastatin Calcium (Atorvastatin Calcium) 40 Mg Tablet, 40 MG PO HS, #30 TAB 3 Refills Prov:PERLA FRYE G[employer] STATION CASHIER 07/26/22 Clopidogrel Bisulfate (Clopidogrel) 75 Mg Tablet, 75 MG PO DAILY, #30 TAB 1 Refi ll Prov:PERLA FRYE APRN 07/26/22 Reported Medications Insulin Aspart (Niacinamide) (Fiasp 100 Unit/ml Flextouch) 100 Unit/1 Ml Insuln.pen, 100 UNIT SQ TIDAC, SYRINGE 08/18/22 Insulin Degludec (Tresiba Flextouch U-100) 100 Unit/1 Ml Insuln.pen, 40 UNIT SQ DAILYBKFST, SYRINGE 08/18/22 Albuterol Sulfate (Proventil Hfa) 6.7 Gm Hfa.aer.ad, 6.7 GM IH TIDP PRN for SHORTNESS OF BREATH 08/18/22 Fluticasone/Umeclidin/Vilanter (Trelegy Ellipta 100-62.5-25) 1 Each Blst.w.dev, 1 EACH IH DAILY 08/18/22 Fluticasone Propionate (Flonase Nasal [place]) 50 Mcg/[place], 50 MCG NASAL DAILY, SPRAY 08/18/22 Cilostazol (Cilostazol) 50 Mg Tablet, 50 MG PO BIDMEALS, TAB 08/18/22 Duloxetine HCl (Duloxetine HCl) 30 Mg Capsule.dr, 30 MG PO DAILY, CAP 08/18/22 Mupirocin (Mupirocin Ointment) 22 Gm Oint, 22 GM TP BID, APPL 07/25/22 Finasteride (Finasteride) 5 Mg Tablet, 5 MG PO DAILY, TAB 07/25/22 Empagliflozin (Jardiance) 25 Mg Tablet, 25 MG PO AM, TAB 07/24/22 Glipizide (Glipizide) 5 Mg Tablet, 5 MG PO BID, TAB 07/24/22 Doxazosin Mesylate (Doxazosin Mesylate) 8 Mg Tablet, 8 MG PO HS, TAB 07/24/22 Aspirin (Aspirin EC) 81 Mg Tablet.dr, 81 MG PO AM, TAB 07/24/22 Montelukast Sodium (Montelukast Sodium) 10 Mg Tablet, 10 MG PO AM, TAB 07/24/22 Acetaminophen (Acetaminophen) 325 Mg Tablet, 650 MG PO TIDP PRN for PAIN LEVEL 1 TO 5, TAB 07/24/22 Past Medical History Past Medical History: Arthritis, COPD, Diabetes-Type II, High Cholesterol, Hype rtension Additional Past Medical Hx: PVD Surgical History: Other Surgical History Other: LEFT FOOT SX Family History: Negative Social History: Negative, Lives with family, Other RN Note Reviewed/Agreed w/PFSH: Yes Review of System Dictation Constitutional: Negative for fever,chills, and weight loss Eyes: Negative for injury, pain,redness, and discharge ENT: Negative for injury,pain or swelling Cardiovascular: Negative for chest pain, palpitations, and edema Respiratory: Negative for shortness of breath, cough, and wheezing, Abdomen/GI: Negative for constipation positive for abdominal pain, nausea, vomiting, diarrhea, and Back: Negative for injury and pain : Negative for injury, bleeding and discharge MS/Extremity: Negative for injury and deformity Skin: Negative for rash, and discoloration Neuro: Negative for weakness, numbness, tingling, and seizure positive for headache Psych: Negative for suicide ideation, homicidal ideation, and hallucinations Initial Vital Sign VS Vital Signs Date Time Temp Pulse Resp B/P (MAP) Pulse Ox O2 Delivery O2 Flow Rate FiO2 09/20/24 21:31 97.3 74 16 155/64 96 Room Air 09/20/24 21:43 0 21 Physical Exam Dictation Vital Signs reviewed General Appearance: Alert, oriented x 3, no acute distress, well developed, nourished. Head and Face: non-traumatic. Eyes: PERRL, pink conjunctivas, eyelid no trauma, anterior chamber with arcus senilis. Ears: Pinnas intact and no signs of trauma or erythema ear canals clear and no discharge TM no erythema Nose: No discharge, no bleeding. Oropharynx: Mouth normal, tongue pink. pharynx clear,no erythema, tonsils no exudates, no abscesses noted, mucous membrane moist Neck: Supple, non-tender, no thyromegaly, no masses, no JVD, no bruits Breast:Deferred Chest:No tenderness, no crepitus, no paradoxical movement, no retractions Lungs:Clear, well-ventilated, symmetric, no rales, no wheezing, no rhonchi, no stridor, good breath sounds bilaterally Heart: Regular rate, regular rhythm, no murmur, no gallops Vascular: no peripheral edema, Abdomen: Soft, positive bowel sounds, nondistended, no guarding, nontender, no rebound, no masses no hepatomegaly, no splenomegaly, no Phillips's sign, no hernias. Rectal: Deferred Genital: Deferred Neurological: Normal speech, motor function intact, sensory function intact , no slurred speech, no facial droop Musculoskeletal: Neck nontender, full range of motion, back nontender, full range of motion, Extremities: nontender, full range of motion Skin: Color pink, dry, no turgor, no rash, no lacerations, no abrasions, no co ntusions. Lymphatic: Deferred Results (Laboratory/Radiology) Laboratory/Radiology Laboratory Tests Test 09/20/24 21:39 09/20/24 21:59 09/21/24 00:02 Influenza Type A Antigen Negative For Type A Influenza Type B Antigen Negative For Type B SARS-CoV-2 Antigen (Rapid) PRESUMPTIVE NEGATIVE White Blood Count 4.9 K/uL (4.8-10.8) Red Blood Count 3.74 MIL/uL (4.50-6.20) L Hemoglobin 12.5 g/dL (14.0-18.0) L Hematocrit 37.1 % (42-54) L Mean Corpuscular Volume 99.2 fL (79-99) H Mean Corpuscular Hemoglobin 33.4 pg (27.0-33.0) H Mean Corpuscular Hemoglobin Concent 33.7 g/dL (32.0-36.0) Red Cell Distribution Width 13.1 % (11.0-15.5) Platelet Count 295 K/uL (130-400) Mean Platelet Volume 9.9 fL (7.5-10.5) Immature Granulocyte % (Auto) 0.2 % (0-1) Neutrophils (%) (Auto) 66.2 % (40.0-77.0) Lymphocytes (%) (Auto) 20.9 % (21.0-51.0) L Monocytes (%) (Auto) 8.8 % (3.0-13.0) Eosinophils (%) (Auto) 3.5 % (0.0-8.0) Basophils (%) (Auto) 0.4 % (0.0-5.0) Neutrophils # (Auto) 3.2 K/uL (1.8-7.7) Lymphocytes # (Auto) 1.0 K/uL (1.0-4.8) Monocytes # (Auto) 0.4 K/uL (0.1-1.0) Eosinophils # (Auto) 0.17 K/uL (0.00-0.70) Basophils # (Auto) 0.02 K/uL (0.00-0.20) Absolute Immature Granulocyte (auto 0.01 K/uL (0-1) Nucleated Red Blood Cells 0.0 % (0.0-0.19) Sodium Level 139 mmol/L (136-145) Potassium Level 3.5 mmol/L (3.5-5.1) Chloride Level 105 mmol/L (101-111) Carbon Dioxide Level 27 mmol/L (21-32) Blood Urea Nitrogen 18 mg/dL (7-18) Creatinine 1.2 mg/dL (0.5-1.3) Glomerular Filtration Rate Calc 64 mL/min (>90) Random Glucose 164 mg/dL (70-105) H Total Calcium 8.3 mg/dL (8.5-10.1) L Magnesium Level 1.70 mg/dL (1.80-2.40) L Total Bilirubin 1.0 mg/dL (0.2-1.0) Direct Bilirubin 0.3 mg/dL (0.0-0.3) Aspartate Amino Transf (AST/SGOT) 39 U/L (10-37) H Alanine Aminotransferase (ALT/SGPT) 39 U/L (12-78) Alkaline Phosphatase 137 U/L (50-136) H Total Creatine Kinase 88 U/L (21-232) # Troponin I High Sensitivity 10 ng/L (4-75) Total Protein 6.9 g/dL (6.0-8.3) Albumin 3.0 g/dL (3.5-5.0) L Lipase 41 U/L (16-77) Urine Color LIGHT-YELLOW (YELLOW) Urine Appearance CLEAR (CLEAR) Urine pH 6.0 (5.0-8.0) Urine Specific Guy 1.016 (1.001-1.031) Urine Protein NEGATIVE mg/dL (NEGATIVE) Urine Glucose (UA) 50 mg/dL (NEGATIVE) H Urine Ketones NEGATIVE mg/dL (NEGATIVE) Urine Occult Blood NEGATIVE (NEGATIVE) Urine Nitrate NEGATIVE (NEGATIVE) Urine Bilirubin NEGATIVE mg/dL (NEGATIVE) Urine Urobilinogen 2.0 mg/dL (0.2-1.0) H Urine Leukocyte Esterase NEGATIVE Naeem/uL Urine RBC None /HPF (0-1) Urine WBC 0-1 /HPF (0-1) Urine Squamous Epithelial Cells RARE /HPF (0-2) Urine Bacteria RARE /HPF (None Seen) REASON: headache nausea ORDERING PHYSICIAN: GERSON CAMPBELL MAINTAINER CENTRAL OFFICE PROCEDURE: HEAD WO - CT HEAD/BRAIN W/O CONTRAST CT HEAD/BRAIN W/O CONTRAST HISTORY: Headaches COMPARISON: None TECHNIQUE: Multiple sequential axial images of the head were obtained from the base of the skull through vertex. Patient was not given contrast through intravenous route. FINDINGS: The ventricles and extraventricular CSF spaces are dilated consistent with cerebral atrophy. Nonspecific white matter changes seen. There is no midline shift, mass effect or herniation. No acute intracranial bleed is seen. There are bilateral ethmoid and maxillary sinusitis with mucoperiosteal thickening. IMPRESSION: 1. No acute intracranial bleed is seen. 2. Atrophy with white matter changes. CT was performed with one or more following dose reduction techniques: automated exposure control, adjustment of the mA and kv according to patient's size, or use of a iterative reconstruction technique. REASON: ABD PAIN, n.v ORDERING PHYSICIAN: GERSON CAMPBELL MAINTAINER CENTRAL OFFICE PROCEDURE: ABD PEL WO - CT ABDOMEN/PELVIS W/O CONTRAST CT ABDOMEN/PELVIS W/O CONTRAST HISTORY: Abdominal pain COMPARISON: 01/15/2023 TECHNIQUE: Multiple sequential axial images of the abdomen and pelvis were obtained from the dome of the diaphragm through symphysis pubis. Patient was not given contrast through intravenous route. Oral contrast was not given. FINDINGS: No pleural effusion is seen bilaterally. There is no evidence of parenchymal disease or pulmonary nodule of the visualized lower lungs. Degenerative changes of the thoracolumbar spine are present. The heart is not enlarged. Small gallstones are suspected in the gallbladder. There is mild gastric distention small bowel dilatation. This may be related to enteritis. Early bowel obstruction not completely excluded. Spleen is enlarged measuring 17 cm. The liver, spleen, adrenal glands and pancreas are unremarkable. There is no evidence of hydronephrosis bilaterally. No evidence of renal stone is seen. Fecal material is seen in the colon. There are normal size retroperitoneal and mesenteric lymph nodes. No ascites is seen. Atherosclerotic changes are present. No CT evidence of acute appendicitis is seen. There is mild diverticulosis. Pelvic sidewalls are symmetric bilaterally. Bladder is well distended without wall thickening. IMPRESSION: 1. Small gallstones suspected in the gallbladder. There may be enteritis with early bowel obstruction not excluded. Mild diverticulosis. Labs Reviewed?: Yes EKG: (+) rhythm (Sinus rhythm) EKG Comment: Date:09/20/2024 Time:2315 Ventricular rate:74 OK interval:237 QRS duration:94 QT/QTc:415 EKG interpretation: Sinus rhythm Reviewed by ED Attending no STEMI ED Course ED Course Orders Procedure Category Date Status Time Cbc With Differential LAB 09/20/24 Complete 21:45 Chest 1vw RAD 09/20/24 Taken 21:45 12 Lead Ekg Tracing- EKG 09/20/24 Logged Technical 21:45 0.9%Nacl 1000ml (Ns PHA 09/20/24 In Process 1000ml) 22:00 Magnesium LAB 09/20/24 Complete 21:45 Creatine Kinase, Total LAB 09/20/24 Complete 21:45 Troponin I High LAB 09/20/24 Complete Sensitivity 21:45 Urinalysis Profile LAB 09/20/24 Complete 21:45 Basic Metabolic Panel LAB 09/20/24 Complete 21:45 Lipase LAB 09/20/24 Complete 21:45 Hepatic Function Panel LAB 09/20/24 Complete 21:45 Covid19 (Sars Antigen LAB 09/20/24 Complete Rapid) 21:45 Influenza Type A & B, LAB 09/20/24 Complete Rapid 21:45 Ondansetron 4mg Inj PHA 09/20/24 Complete (Zofran 4mg Inj) 22:00 Pantoprazole 40mg Inj PHA 09/20/24 Complete (Protonix 40mg Inj 22:00 Ct Head/Brain W/O CT 09/20/24 Resulted Contrast 21:45 Ct Abdomen/Pelvis W/O CT 09/20/24 Resulted Contrast 21:45 Acetaminophen 325 Tab PHA 09/20/24 Complete (Tylenol 325mg Tab 22:00 Current Medications Medications (Trade) Dose Ordered Sig/Isabella Route PRN Reason Start Time Stop Time Status Last Admin Dose Admin Acetaminophen (TYLenol 325MG TAB) 650 mg ONCE ONCE PO 09/20/24 22:00 09/20/24 22:01 DC 09/20/24 22:11 Ondansetron HCl (zoFRAN 4MG INJ) 4 mg ONCE ONCE IVP 09/20/24 22:00 09/20/24 22:01 DC 09/20/24 22:10 Pantoprazole Sodium (PROTonix 40MG INJ) 40 mg ONCE ONCE IVP 09/20/24 22:00 09/20/24 22:01 DC 09/20/24 22:10 Sodium Chloride 1,000 ml @ 125 mls/hr ONCE ONCE IV 09/20/24 22:00 09/21/24 05:59 09/20/24 22:10 Vital Signs Date Time Temp Pulse Resp B/P (MAP) Pulse Ox O2 Delivery O2 Flow Rate FiO2 09/21/24 00:43 98.1 82 18 134/63 98 Room Air* 0 21 09/20/24 21:43 98.2 85 20 137/65 98 Room Air* 0 21 09/20/24 21:31 97.3 74 16 155/64 96 Room Air Medical Decision Making MDM MDM: The patient is a 74-year-old male with a history of diabetes, arthritis, CAD who presents to the emergency department with complaints of headache, nausea nonbloody vomiting, epigastric pain onset yesterday. Patient reports he had a bowel movement this morning. Reports the he has been struggling with constipation and his PCP gave him some stool softeners. Denies any fevers but reports cough. CBC showed no leukocytosis, mild macrocytic anemia, chemistry showed mild hypomagnesemia, negative lipase, negative troponin, urinalysis unremarkable, CT head showed no acute pathology. CT abdomen showed enteritis with small bowel obstruction not excluded. Patient will be admitted for further evaluation. Differential diagnosis: Gastroenteritis, bowel obstruction, upper respiratory infection, ACS, electrolyte imbalance Comorbidities: Diabetes, arthritis, CAD Tests considered and not ordered secondary to shared decision making include: none Previous outside records reviewed: none Risk of complication and/or morbidity or mortality of patient management: The patient meets criteria for admission. Need for emergency major/minor surgery: No There are no social concerns with this patient. I independently interpreted the tests I ordered (labs, urinalysis, etc.). I discussed the case with the hospitalist for admission. Lexie HANDY who accepts admission I discussed the case with the following specialists: none. Historian: pateint. I independently interpreted imaging studies and EKGs that I ordered (US, CT, XR, EKG, etc.). External chart review: none. Medical management and examination interpretation discussions were had by me with other qualified healthcare professionals as indicated for the patient's care. DX & DISP Disposition: Inpatient Decision to Admit Date: Sep 21, 2024 Decision to Admit Time: 01:25 Departure Impression: Primary Impression: Nausea and vomiting Additional Impressions: Headache, Anemia Condition: Stable Referrals: JOHN STROUD MD (PCP) I have reviewed the case, and I agree with, Diagnosis and Plan GERSON CAMPBELL Sep 21, 2024 01:27
[2024-09-21] MEDS ORDERED: PANT40TA54 PO ×2 (01:49)
[2024-09-21] MEDS ORDERED: ALBU18HF7 IH ×2 (01:49)
[2024-09-21] MEDS ORDERED: SENN-297 PO ×2 (01:49)
[2024-09-21] MEDS ORDERED: FURO20TA4 PO ×2 (01:49)
[2024-09-21] MEDS ORDERED: CETI5TAB12 PO ×2 (01:49)
[2024-09-21] MEDS ORDERED: ELTR50TA PO ×2 (01:49)
[2024-09-21] MEDS ORDERED: GABA-529 PO ×2 (01:49)
[2024-09-21] MEDS ORDERED: DULO20CA18 PO ×2 (01:49)
[2024-09-21] MEDS ORDERED: DOXA8TAB81 PO (01:49)
[2024-09-21] MEDS ORDERED: CELE-125 PO ×2 (01:49)
[2024-09-21] MEDS ORDERED: FLUT1BLS3 IH (01:49)
[2024-09-21] MEDS ORDERED: ROPI2TAB53 PO ×2 (01:49)
[2024-09-21] MEDS ORDERED: acetaMINOPHEN 650 MG SUPPOSITORY RC PRN (02:00)
[2024-09-21] MEDS: LACTATED RINGERS 1000ML 1,000 ML IV SCH (02:02)
[2024-09-21] MEDS: INSULIN humuLIN R 100 UNIT/ML 3ML SQ SCH (07:30)
[2024-09-21] MEDS ORDERED: MAGNESIUM 2GM PREMIX 50ML 50 ML IV SCH (08:00)
[2024-09-21] MEDS ORDERED: doCUSate SODIUM 100 MG CAP PO PRN (08:00)
[2024-09-21] MEDS ORDERED: ondanSETRON 4MG INJ IVP PRN (08:00)
[2024-09-21] MEDS ORDERED: PoTASSium chloRIDE 20MEQ ER 20 MEQ ERTAB PO PRN (08:00)
[2024-09-21] MEDS ORDERED: TEMAZepam 15 MG CAPSULE PO PRN (08:00)
[2024-09-21] MEDS ORDERED: hydrALAZine 20MG/ML VIAL IV PRN (08:00)
[2024-09-21] MEDS ORDERED: PoTASSium chl 10% ELIXIR 20MEQ 20 MEQ/15 ML UDCUP PO PRN (08:00)
[2024-09-21] MEDS ORDERED: MAGNESIUM 2GM PREMIX 50ML 50 ML IV PRN (08:00)
[2024-09-21] MEDS ORDERED: PoTASSium chloRIDE 20MEQ/100ML 100 ML IV PRN (08:00)
[2024-09-21] MEDS ORDERED: GLUCAGON 1MG KIT 1 MG ML IM PRN (08:00)
[2024-09-21] MEDS ORDERED: LACTULOSE 20 GM/30 ML UDCUP PO PRN (08:00)
[2024-09-21 08:16] LABS: MEAN CORPUSCULAR HEMOGLOBIN 33.9 pg (27.0-33.0); MEAN CORPUSCULAR HGB CONC 34.2 g/dL (32.0-36.0); MEAN CORPUSCULAR VOLUME 99.2 fL (79-99); RED BLOOD CELL COUNT(AUTO) 3.63 MIL/uL (4.50-6.20); RED CELL DISTRIBUTION WIDTH 13.1 % (11.0-15.5); WHITE BLOOD COUNT (AUTO) 4.1 K/uL (4.8-10.8)
[2024-09-21] MEDS: PANTOPrazole 40 MG/VIAL IVP SCH (08:20)
[2024-09-21] MEDS: DOXYCYCLINE 100MG+NS 250ML 250 ML IV SCH (08:20)
--- NOTE | 2024-09-21 08:33 | HMCIMG ---
Exam Type: CHEST 1VW Clinical Information: cp Comparison: None Findings: The lungs are clear of infiltrates. The heart is enlarged. Bony and soft tissue structures of the chest wall are unremarkable. IMPRESSION: Cardiomegaly. Clear lungs.
[2024-09-21 08:40] LABS: ALBUMIN 2.8 g/dL (3.5-5.0); BILIRUBIN,TOTAL 0.9 mg/dL (0.2-1.0); CREATININE 0.9 mg/dL (0.5-1.3); MAGNESIUM 1.7 mg/dL (1.80-2.40); POTASSIUM 3.5 mmol/L (3.5-5.1); THYROID STIMULATING HORMONE 2.98 uIU/mL (0.36-3.74); TOTAL PROTEIN, SERUM 6.3 g/dL (6.0-8.3)
--- NOTE | 2024-09-21 08:52 | NUR ---
GENERAL SURGERY CONSULT: PATIENT REPORT GIVEN TO DR KRISHNA
--- NOTE | 2024-09-21 09:21 | EKG ---
[facility] Test Date: 2024-09-20 Test Time: 23:15:23 Pat Name: TY STACK Department: [facility] Room: 315 Gender: M Transport Engineer: [id number] : 1950 Requested By: GERSON CAMPBELL Order Number: [id number] Reading MD: Andrew Castillo Measurements Intervals [place] Rate: 74 P: 52 AK: 237 QRS: -11 QRSD: 94 T: 93 QT: 415 QTc: 459 Interpretive Statements Sinus rhythm Prolonged AK interval Compared to ECG 05/09/2024 11:07:44 Myocardial infarct finding no longer present Electronically Signed On 09-22-2024 18:20:05 ROOM CLERK by Andrew Castillo Please click the below link to view image of tracing.
[2024-09-21] MEDS: MAGNESIUM 2GM PREMIX 50ML 50 ML IV SCH (10:25)
[2024-09-21] MEDS ORDERED: metRONIDazole 500MG/100ML BAG IV SCH (12:00)
[2024-09-21] MEDS: cefTRIAXone 1G VIAL IVPB SCH (12:00)
[2024-09-21] MEDS: metRONIDazole 500MG/100ML BAG IV SCH (12:30)
[2024-09-21] MEDS: DEXTROSE 50%-WATER 50 ML DISP.SYRIN IV PRN (16:25)
--- NOTE | 2024-09-21 16:49 | NUR ---
PROVIDER MADE AWARE OF HYPOGLYCEMIC EPISODE. NOTE PT VERBALIZES SELF ADMINSTERED INJECTABLE INSULIN AT HOME YESTERDAY MORNING PRESCRIBED. ORDERS RECEIVED FROM GIOVANY SHIPMAN VIA TELEPHONE. PT REMAINS NPO TO RULE OUT BOWEL OBSTRUCTION.
[2024-09-21] MEDS: DEXTROSE 5 %-0.45 % NACL 1,000 ML IV SCH (17:05)
--- NOTE | 2024-09-21 22:55 | NUR ---
Attempted to give report. Assigned nurse assisting in Rapid Response. Nurse will call back when safe.
--- NOTE | 2024-09-21 23:34 | NUR ---
Patient has his personal glucometer. Glucometer is reading 50s. Sugar checked at this time- result 74. Patient non symptomatic. Patient says he does not feel as if he has low blood sugar. D5 1/2NS @ 75 ml/hr running at this time.
[2024-09-22 00:35] VITALS: BP 142/61; PULSE 70; RESP 18; TEMP 98.2; O2SAT 97
[2024-09-22] MEDS: acetaMINOPHEN 325 MG TAB PO PRN (03:20)
[2024-09-22 03:50] VITALS: BP 145/63; PULSE 72; RESP 20; TEMP 98
[2024-09-22 06:28] LABS: BASOPHILS # (AUTO) 0.02 K/uL (0.00-0.20); BASOPHILS % (AUTO) 0.4 % (0.0-5.0); EOSINOPHILS # (AUTO) 0.23 K/uL (0.00-0.70); EOSINOPHILS % (AUTO) 4.8 % (0.0-8.0); IMMATURE GRANULOCYTE ABSOLUTE 0.02 K/uL (0-1); LYMPHOCYTES # (AUTO) 1.1 K/uL (1.0-4.8); MEAN CORPUSCULAR HEMOGLOBIN 33.6 pg (27.0-33.0); MEAN CORPUSCULAR HGB CONC 33.1 g/dL (32.0-36.0); MEAN CORPUSCULAR VOLUME 101.7 fL (79-99); MONOCYTES # (AUTO) 0.4 K/uL (0.1-1.0); NEUTROPHILS % (AUTO) 63.4 % (40.0-77.0); PLATELET COUNT (AUTO) 254 K/uL (130-400); RED BLOOD CELL COUNT(AUTO) 3.54 MIL/uL (4.50-6.20); RED CELL DISTRIBUTION WIDTH 13.2 % (11.0-15.5); WHITE BLOOD COUNT (AUTO) 4.8 K/uL (4.8-10.8)
[2024-09-22 06:50] LABS: ALBUMIN 2.6 g/dL (3.5-5.0); BILIRUBIN,TOTAL 1.1 mg/dL (0.2-1.0); CREATININE 0.9 mg/dL (0.5-1.3); MAGNESIUM 1.8 mg/dL (1.80-2.40); PHOSPHORUS 2.7 mg/dL (2.5-4.9); POTASSIUM 3.5 mmol/L (3.5-5.1); THYROID STIMULATING HORMONE 2.51 uIU/mL (0.36-3.74); TOTAL PROTEIN, SERUM 5.9 g/dL (6.0-8.3)
[2024-09-22 08:00] VITALS: BP 141/61; PULSE 66; RESP 18; TEMP 97.8; O2SAT 98
--- NOTE | 2024-09-22 10:03 | NUR ---
DR NELSON PAGED DR ENLSON REGARDING NEW CONSULT. HE IS AWARE, PLAN OF CARE ON GOING.
--- NOTE | 2024-09-22 10:31 | CONS ---
GENERAL SURGERY CONSULTATION NOTE DATE OF CONSULTATION: Sep 22, 2024 TIME OF CONSULTATION: 10:31 CONSULTING SERVICE: Tomi Strong MD REQUESTING PHYSICAIN: [ ] REASON FOR CONSULTATION: [ ] HISTORY OF PRESENT ILLNESS: [ ] PAST MEDICAL HISTORY: [ ] PAST SURGICAL HISTORY: [ ] FAMILY HISTORY: [ ] SOCIAL HISTORY: [ ] Current Medications Medications (Trade) Dose Ordered Sig/Isabella Route Start Time Stop Time Status Last Admin Dose Admin Ceftriaxone Sodium (ROCEphine 1G INJ) 1 gm Q24H IVPB 09/21/24 12:00 10/01/24 11:59 09/21/24 12:00 1 GM Dextrose/Sodium Chloride 1,000 ml @ 75 mls/hr [id number] IV 09/21/24 17:00 10/21/24 16:59 09/22/24 05:41 75 MLS/HR Doxycycline Hyclate 250 ml @ 125 mls/hr Q12H IV 09/21/24 08:00 09/21/24 11:43 DC 09/21/24 08:20 125 MLS/HR Insulin Human Regular (humuLIN R 100 UNIT/ML 3ML) INSULIN SLIDING SCAL... ACHS SQ 09/21/24 07:30 10/21/24 07:29 Lactated Ringer's 1,000 ml @ 100 mls/hr Q10H IV 09/21/24 02:00 09/22/24 08:20 DC 09/21/24 02:02 125 MLS/HR Magnesium Sulfate 50 ml @ 0 mls/hr PROTOCOL IV 09/21/24 08:00 09/21/24 08:27 DC Magnesium Sulfate 50 ml @ 0 mls/hr PROTOCOL IV 09/21/24 08:30 10/21/24 08:29 09/21/24 10:25 25 MLS/HR Metronidazole/ Sodium Chloride (flaGYL) 500 mg Q8H IV 09/21/24 12:00 09/21/24 11:47 DC Metronidazole/ Sodium Chloride (flaGYL) 500 mg Q8H IV 09/21/24 13:00 10/01/24 12:59 09/22/24 04:58 500 MG Pantoprazole Sodium (PROTonix 40MG INJ) 40 mg BID IVP 09/21/24 09:00 10/21/24 08:59 09/22/24 10:06 40 MG Allergies: Coded Allergies: ibuprofen (Unverified Allergy, Unknown, 01/27/19) metformin (Unverified Allergy, Unknown, 09/08/19) REVIEW OF SYSTEMS: [employer]: [Denies headaches or blurring of vision.] RESP: [No cough, chest pain or SOB.] CVS: [No palpitaions.] GI: [abdominal pain with nausea and vomiting, no diarrhea or constipation.] LEATHA: [No dysuria or hematuria.] Musculoskeletal: [No swelling or joint pain.] BACK: [No pain or swelling.] All other systems are reviewed and essentially negative pertinent positives in HPI. PHYSICAL EXAMINATION: GENERAL: [Patient is lying comfortably in bed, not in any obvious distress.] HEAD: [Normal with no signs of head trauma.] EYES: [Not pale not jaundiced afebrile to touch.] ENT: [ Normal.] NECK: [Supple,no tenderness,no lymphadenopathy,no masses,no thyromegaly ,no bruits, no JVD.] LUNGS: [Clear breath sounds bilaterally. No wheezes, rales, or rhonchi.] HEART: [Regular rate and rhythm. Normal S1 and S2, without murmurs, rub or gallop.] VASC: [No edema. Peripheral pulses normal and equal in all extremities.] ABD: [Bowel sounds present,soft, RUQ tender, no masses, no organomegaly.] : [Normal, no suprapubic tenderness.] LYMPH: [No lymphadenopathy noted.] EXT: [ Warm soft, non tender.] SKIN: [ No rashes or lesions.] NEURO: [ Awake Alert and oriented x3.] Vital Signs (last 8hr) Date Time Temp Pulse Resp B/P (MAP) Pulse Ox O2 Delivery O2 Flow Rate FiO2 09/22/24 08:00 97.9 66 18 141/61 98 Room Air 09/22/24 08:00 98 Room Air* 0 21 09/22/24 03:50 98.1 72 20 145/63 97 Room Air LABORATORY: [ ] Hematology Labs: Test 09/22/24 06:13 Range/Units White Blood Count 4.8 4.8-10.8 K/uL Red Blood Count 3.54 L 4.50-6.20 MIL/uL Hemoglobin 11.9 L 14.0-18.0 g/dL Hematocrit 36.0 L 42-54 % Mean Corpuscular Volume 101.7 H 79-99 fL Mean Corpuscular Hemoglobin 33.6 H 27.0-33.0 pg Mean Corpuscular Hemoglobin Concent 33.1 32.0-36.0 g/dL Red Cell Distribution Width 13.2 11.0-15.5 % Platelet Count 254 130-400 K/uL Mean Platelet Volume 9.3 7.5-10.5 fL Immature Granulocyte % (Auto) 0.4 0-1 % Neutrophils (%) (Auto) 63.4 40.0-77.0 % Lymphocytes (%) (Auto) 22.0 21.0-51.0 % Monocytes (%) (Auto) 9.0 3.0-13.0 % Eosinophils (%) (Auto) 4.8 0.0-8.0 % Basophils (%) (Auto) 0.4 0.0-5.0 % Neutrophils # (Auto) 3.0 1.8-7.7 K/uL Lymphocytes # (Auto) 1.1 1.0-4.8 K/uL Monocytes # (Auto) 0.4 0.1-1.0 K/uL Eosinophils # (Auto) 0.23 0.00-0.70 K/uL Basophils # (Auto) 0.02 0.00-0.20 K/uL Absolute Immature Granulocyte (auto 0.02 0-1 K/uL Nucleated Red Blood Cells 0.0 0.0-0.19 % Chemistry Labs: Test 09/22/24 06:13 09/22/24 05:03 09/21/24 08:05 09/20/24 21:59 Range/Units Sodium Level 142 136-145 mmol/L Potassium Level 3.5 3.5-5.1 mmol/L Chloride Level 110 101-111 mmol/L Carbon Dioxide Level 27 21-32 mmol/L Blood Urea Nitrogen 13 7-18 mg/dL Creatinine 0.9 0.5-1.3 mg/dL Glomerular Filtration Rate Calc 91 >90 mL/min Random Glucose 77 70-105 mg/dL Total Calcium 8.1 L 8.5-10.1 mg/dL Phosphorus Level 2.7 2.5-4.9 mg/dL Magnesium Level 1.80 1.80-2.40 mg/dL Total Bilirubin 1.1 #H 0.2-1.0 mg/dL Aspartate Amino Transf (AST/SGOT) 34 10-37 U/L Alanine Aminotransferase (ALT/SGPT) 33 12-78 U/L Alkaline Phosphatase 115 50-136 U/L Total Protein 5.9 L 6.0-8.3 g/dL Albumin 2.6 L 3.5-5.0 g/dL Thyroid Stimulating Hormone (TSH) 2.51 0.36-3.74 uIU/mL Whole Blood Glucose 91 70-110 MG/DL Hemoglobin A1c 7.0 H 4.0-6.0 % Estimated Average Glucose (eAG) 154 H 70-126 mg/dL Procalcitonin < 0.05 L 0.05-0.5 ng/mL Direct Bilirubin 0.3 0.0-0.3 mg/dL Total Creatine Kinase 88 # 21-232 U/L Troponin I High Sensitivity 10 4-75 ng/L Lipase 41 16-77 U/L DIAGNOSTICS / RADIOLOGY: [Copy/Paste Echos/Imaging Report here] ASSESSMENT: [] PLAN: [] TOMI STRONG MD Sep 22, 2024 10:31
[2024-09-22] MEDS: MAGNESIUM CITRATE 296 ML SOLUTION PO ONE (11:52)
[2024-09-22 12:00] VITALS: BP 146/64; PULSE 69; RESP 18; TEMP 97.9
--- NOTE | 2024-09-22 15:41 | PN ---
[facility] PROGRESS NOTE Date of Service: Sep 22, 2024 Time of Service: 15:32 SUBJECTIVE: Mr. Moreno is a 74-year-old male with a history of COPD, DM, hypercholesteremia, hypertension, PVD, arthritis, and CAD who [place] [facility] [place] of headache, nausea, nonbloody vomit, epigastric pain onset yesterday. The patient reported he had a bowel movement this morning. The patient reported that he has been struggling with constipation and his PCP gave him some stool softeners. The patient also complains of a cough. The patient denied any fever or chills. CT abdomen/pelvis without contrast: 1. Small gallstones suspected in the gallbladder. There may be enteritis with early bowel obstruction not excluded. Mild diverticulosis. CT of the head: IMPRESSION: 1. No acute intracranial bleed is seen. 2. Atrophy with white matter changes. ED provider request patient be admitted with the diagnosis of nausea, and vomiting, headache, anemia. ED provider request patient be admitted with the diagnosis of the nausea and vomiting, headache, anemia. Patient was seen/assessed by me in room 17. No family at bedside. Patient's breathing was even, unlabored, in no distress. Abdomen is soft and nontender. Patient denied any pain. I informed the patient of labs, diagnosis, plan of care. He verbalized understanding and is in agreement with the plan. Plan and assessment are listed below. 09/22/24 Patient was seen and examined at bedside. He is awake alert and oriented. Yesterday evening his glucose dropped to 56 says he took his insulin early in the morning and he was given D5. today his vitals are blood pressure 146/64, pulse rate 69, respiratory rate 18, T-max 97.9, SpO2 96% on room air. Patient says his nausea and vomiting have improved but complains of abdominal bloating, denies abdominal pain or chest pain or shortness of breath or dizziness. Surgery started him on GI soft diet and magnesium citrate for constipation. REVIEW OF SYSTEMS ROS reviewed with patient. All positives mentioned above. Otherwise negative, noncontributory, or non-pertinent. PHYSICAL EXAM GENERAL APPEARANCE: The patient is awake, alert, and oriented, in no acute cardiopulmonary distress. NEUROLOGICAL: Cranial nerves II-XII grossly intact. Motor is 5/5 in bilateral upper and lower extremities proximal to distal. No sensory deficits. HEENT: Face is symmetric. Pupils are equal and reactive. Extraocular movements are intact. NECK: Supple. No JVD. No thyromegaly. No submental, submandibular, pre- /postauricular, occipital or supraclavicular lymphadenopathy. CHEST: Normal chest expansion. No Telemetry. LUNGS: Absence of any rales, rhonchi or any wheezing. CARDIOVASCULAR: Regular. S1 and S2 normal. No appreciable rubs, murmurs or gallops. ABDOMEN: Soft, nontender, and nondistended. There is no rebound, voluntary guarding, or rigidity. : Deferred. No Wilson. EXTREMITIES: Non-edematous and not cyanotic. No clubbing. Good capillary refill. SKIN: No skin breakdown. Vital Signs (last 8hr) Date Time Temp Pulse Resp B/P (MAP) Pulse Ox O2 Delivery O2 Flow Rate FiO2 09/22/24 12:00 97.9 69 18 146/64 96 09/22/24 08:00 97.9 66 18 141/61 98 Room Air 09/22/24 08:00 98 Room Air* 0 21 LABS: Laboratory: Test 09/22/24 11:25 09/22/24 06:13 09/21/24 08:05 09/21/24 00:02 Range/Units Whole Blood Glucose 160 #H 70-110 MG/DL White Blood Count 4.8 4.8-10.8 K/uL Red Blood Count 3.54 L 4.50-6.20 MIL/uL Hemoglobin 11.9 L 14.0-18.0 g/dL Hematocrit 36.0 L 42-54 % Mean Corpuscular Volume 101.7 H 79-99 fL Mean Corpuscular Hemoglobin 33.6 H 27.0-33.0 pg Mean Corpuscular Hemoglobin Concent 33.1 32.0-36.0 g/dL Red Cell Distribution Width 13.2 11.0-15.5 % Platelet Count 254 130-400 K/uL Mean Platelet Volume 9.3 7.5-10.5 fL Immature Granulocyte % (Auto) 0.4 0-1 % Neutrophils (%) (Auto) 63.4 40.0-77.0 % Lymphocytes (%) (Auto) 22.0 21.0-51.0 % Monocytes (%) (Auto) 9.0 3.0-13.0 % Eosinophils (%) (Auto) 4.8 0.0-8.0 % Basophils (%) (Auto) 0.4 0.0-5.0 % Neutrophils # (Auto) 3.0 1.8-7.7 K/uL Lymphocytes # (Auto) 1.1 1.0-4.8 K/uL Monocytes # (Auto) 0.4 0.1-1.0 K/uL Eosinophils # (Auto) 0.23 0.00-0.70 K/uL Basophils # (Auto) 0.02 0.00-0.20 K/uL Absolute Immature Granulocyte (auto 0.02 0-1 K/uL Nucleated Red Blood Cells 0.0 0.0-0.19 % Sodium Level 142 136-145 mmol/L Potassium Level 3.5 3.5-5.1 mmol/L Chloride Level 110 101-111 mmol/L Carbon Dioxide Level 27 21-32 mmol/L Blood Urea Nitrogen 13 7-18 mg/dL Creatinine 0.9 0.5-1.3 mg/dL Glomerular Filtration Rate Calc 91 >90 mL/min Random Glucose 77 70-105 mg/dL Total Calcium 8.1 L 8.5-10.1 mg/dL Phosphorus Level 2.7 2.5-4.9 mg/dL Magnesium Level 1.80 1.80-2.40 mg/dL Total Bilirubin 1.1 #H 0.2-1.0 mg/dL Aspartate Amino Transf (AST/SGOT) 34 10-37 U/L Alanine Aminotransferase (ALT/SGPT) 33 12-78 U/L Alkaline Phosphatase 115 50-136 U/L Total Protein 5.9 L 6.0-8.3 g/dL Albumin 2.6 L 3.5-5.0 g/dL Thyroid Stimulating Hormone (TSH) 2.51 0.36-3.74 uIU/mL Hemoglobin A1c 7.0 H 4.0-6.0 % Estimated Average Glucose (eAG) 154 H 70-126 mg/dL Procalcitonin < 0.05 L 0.05-0.5 ng/mL Urine Color LIGHT-YELLOW YELLOW Urine Appearance CLEAR CLEAR Urine pH 6.0 5.0-8.0 Urine Specific [place] 1.016 1.001-1.031 Urine Protein NEGATIVE NEGATIVE mg/dL Urine Glucose (UA) 50 H NEGATIVE mg/dL Urine Ketones NEGATIVE NEGATIVE mg/dL Urine Occult Blood NEGATIVE NEGATIVE Urine Nitrate NEGATIVE NEGATIVE Urine Bilirubin NEGATIVE NEGATIVE mg/dL Urine Urobilinogen 2.0 H 0.2-1.0 mg/dL Urine Leukocyte Esterase NEGATIVE NEGATIVE Naeem/uL Urine RBC None 0-1 /HPF Urine WBC 0-1 0-1 /HPF Urine Squamous Epithelial Cells RARE 0-2 /HPF Urine Bacteria RARE None Seen /HPF Test 09/20/24 21:59 09/20/24 21:39 Range/Units Direct Bilirubin 0.3 0.0-0.3 mg/dL Total Creatine Kinase 88 # 21-232 U/L Troponin I High Sensitivity 10 4-75 ng/L Lipase 41 16-77 U/L Influenza Type A Antigen Negative For Type A NEGATIVE Influenza Type B Antigen Negative For Type B NEGATIVE SARS-CoV-2 Antigen (Rapid) PRESUMPTIVE NEGATIVE NEGATIVE Current Medications Medications (Trade) Dose Ordered Sig/Isabella Route PRN Reason Start Time Stop Time Status Last Admin Dose Admin Acetaminophen (TYLenol 325MG TAB) 650 mg Q6H PRN PO FEVER/MILD PAIN LEVEL 1-3 09/21/24 02:00 10/21/24 01:59 09/22/24 03:20 650 MG Acetaminophen (TYLenol 650MG SUPPOSITORY) 650 mg Q6H PRN RC FEVER / MILD PAIN 1-3 IF NPO 09/21/24 02:00 10/21/24 01:59 Ceftriaxone Sodium (ROCEphine 1G INJ) 1 gm Q24H IVPB 09/21/24 12:00 10/01/24 11:59 09/22/24 11:52 1 GM Dextrose (D50w) 50 ml AD PRN IV HYPOGLYCEMIA PROTOCOL 09/21/24 08:00 10/21/24 07:59 09/21/24 16:25 50 ML Dextrose/Sodium Chloride 1,000 ml @ 75 mls/hr [id number] IV 09/21/24 17:00 10/21/24 16:59 09/22/24 05:41 75 MLS/HR Docusate Sodium (COLace 100MG CAP) 100 mg BID PRN PO CONSTIPATION 09/21/24 08:00 10/21/24 07:59 Doxycycline Hyclate 250 ml @ 125 mls/hr Q12H IV 09/21/24 08:00 09/21/24 11:43 DC 09/21/24 08:20 125 MLS/HR Glucagon (Glucagon 1mg Kit) 1 mg AD PRN IM HYPOGLYCEMIA PROTOCOL 09/21/24 08:00 10/21/24 07:59 Hydralazine HCl (APRESOLine 20MG INJ) 10 mg Q2H PRN IV SBP GREATER THAN 160 09/21/24 08:00 10/21/24 07:59 Insulin Human Regular (humuLIN R 100 UNIT/ML 3ML) INSULIN SLIDING SCAL... ACHS SQ 09/21/24 07:30 10/21/24 07:29 Lactated Ringer's 1,000 ml @ 100 mls/hr Q10H IV 09/21/24 02:00 09/22/24 08:20 DC 09/21/24 02:02 125 MLS/HR Lactulose (Constulose 20gm/ 30ml Udcup) 20 gm Q6H PRN PO CONSTIPATION 09/21/24 08:00 10/21/24 07:59 Magnesium Sulfate 50 ml @ 0 mls/hr PROTOCOL IV 09/21/24 08:00 09/21/24 08:27 DC Magnesium Sulfate 50 ml @ 0 mls/hr PROTOCOL IV 09/21/24 08:30 10/21/24 08:29 09/21/24 10:25 25 MLS/HR Magnesium Sulfate 50 ml @ 0 mls/hr PROTOCOL PRN IV MAGNESIUM PROTOCOL 09/21/24 08:00 09/21/24 07:56 DC Metronidazole/ Sodium Chloride (flaGYL) 500 mg Q8H IV 09/21/24 12:00 09/21/24 11:47 DC Metronidazole/ Sodium Chloride (flaGYL) 500 mg Q8H IV 09/21/24 13:00 10/01/24 12:59 09/22/24 13:40 500 MG Ondansetron HCl (zoFRAN 4MG INJ) 4 mg Q6H PRN IVP NAUSEA/VOMITING 09/21/24 08:00 10/21/24 07:59 Pantoprazole Sodium (PROTonix 40MG INJ) 40 mg BID IVP 09/21/24 09:00 10/21/24 08:59 09/22/24 10:06 40 MG Potassium Chloride 100 ml @ 100 mls/hr AD PRN IV POTASSIUM PROTOCOL 09/21/24 08:00 10/21/24 07:59 Potassium Chloride (K-Dur/Klor-Con 20meq) 20 meq AD PRN PO POTASSIUM PROTOCOL 09/21/24 08:00 10/21/24 07:59 Potassium Chloride (KCl 10% Elixir 20meq/15ml) 20 meq AD PRN PO POTASSIUM PROTOCOL 09/21/24 08:00 10/21/24 07:59 Temazepam (restORIL 15 MG CAP) 15 mg HS PRN PO INSOMNIA/SLEEP 09/21/24 08:00 10/21/24 07:59 DIAGNOSTICS / RADIOLOGY: REASON: ABD PAIN, n.v ORDERING PHYSICIAN: GERSON CAMPBELL PROCEDURE: ABD PEL WO - CT ABDOMEN/PELVIS W/O CONTRAST CT ABDOMEN/PELVIS W/O CONTRAST HISTORY: Abdominal pain COMPARISON: 01/15/2023 TECHNIQUE: Multiple sequential axial images of the abdomen and pelvis were obtained from the dome of the diaphragm through symphysis pubis. Patient was not given contrast through intravenous route. Oral contrast was not given. FINDINGS: No pleural effusion is seen bilaterally. There is no evidence of parenchymal disease or pulmonary nodule of the visualized lower lungs. Degenerative changes of the thoracolumbar spine are present. The heart is not enlarged. Small gallstones are suspected in the gallbladder. There is mild gastric distention small bowel dilatation. This may be related to enteritis. Early bowel obstruction not completely excluded. Spleen is enlarged measuring 17 cm. The liver, spleen, adrenal glands and pancreas are unremarkable. There is no evidence of hydronephrosis bilaterally. No evidence of renal stone is seen. Fecal material is seen in the colon. There are normal size retroperitoneal and mesenteric lymph nodes. No ascites is seen. Atherosclerotic changes are present. No CT evidence of acute appendicitis is seen. There is mild diverticulosis. Pelvic sidewalls are symmetric bilaterally. Bladder is well distended without wall thickening. IMPRESSION: 1. Small gallstones suspected in the gallbladder. There may be enteritis with early bowel obstruction not excluded. Mild diverticulosis. CT was performed with one or more following dose reduction techniques: automated exposure control, adjustment of the mA and kv according to patient's size, or use of a iterative reconstruction technique. ASSESSMENT: Nausea and vomiting, enteritis versus early bowel obstruction Diverticulosis Anemia Headache Hyperglycemia Electrolyte derangement (hypomagnesemia, hypocalcemia) Transaminitis Malnutrition/hypoalbuminemia PLAN: GI soft diet Start LR at 100 mL an hour. Start doxycycline 100 mg IV b.i.d. Deescalate antibiotics when appropriate. Consults general surgeon for evaluation of early bowel obstruction versus enteritis. P.r.n. medications for: Pain management, fever, Nausea, vomiting, constipation, hypertension. DVT and GI prophylaxis: SCDs and Protonix Oxygen therapy as needed to keep SpO2 equal to greater than 92%. Glucometer checks a.c. and HS with insulin regular sliding scale coverage as needed per protocol. Blood pressure checks every4 hours and as needed. Reconcile home medications once available. Monitor renal and liver function. Monitor electrolytes and treat accordingly. A.m. labs: CBC, CMP, Mag, phos, TSH, A1c. GI and DVT prophylaxis: Protonix and Lovenox. ATTESTATION BY PHYSICIAN I have seen and examined the patient. I reviewed the documentation, medical decision making, and treatment plan as noted by the resident provider above. I agree with the findings and plan of care. Verónica Grant MD, NIHITHA MD Sep 22, 2024 15:41
[2024-09-22 16:00] VITALS: BP 120/58; PULSE 68; RESP 18; TEMP 97.8
--- NOTE | 2024-09-22 17:06 | DS ---
Discharge Summary Hospital Course Summary: Mr. Moreno is a 74-year-old male with a history of COPD, DM, hypercholesteremia, hypertension, PVD, arthritis, and CAD who presented to [facility] [place] for evaluation of headache, nausea, nonbloody vomit, epigastric pain onset 09/19/24. The patient reported he had a bowel movement this morning. The patien t reported that he has been struggling with constipation and his PCP gave him some stool softeners. CT abdomen/pelvis without contrast: 1. Small gallstones suspected in the gallbladder. There may be enteritis with early bowel obstruction not excluded. Mild diverticulosis. CT of the head: IMPRESSION: 1. No acute intracranial bleed is seen. 2. Atrophy with white matter changes. ED provider request patient be admitted with the diagnosis of nausea, and vomiting, headache, anemia. He was admitted for further management of enteritis and early bowel obstruction. Yesterday evening his glucose dropped to 56 says he took his insulin early in the morning and he was given D5. today his vitals are blood pressure 146/64, pulse rate 69, respiratory rate 18, T-max 97.9, SpO2 96% on room air. Patient says his nausea and vomiting have improved but complains of abdominal bloating, denies abdominal pain or chest pain or shortness of breath or dizziness. Surgery started him on GI soft diet and magnesium citrate for constipation. Patient had several bowel movements and says he he feels better, bloating has decreased. He has been cleared by surgery for discharge. He denies abdominal pain or nausea or constipation. He is tolerating the diet well. Will discharge him today and advise him to follow up with his PCP in 2-3 days Computer System Validation Specialist(s): Surgery - Dr. Stallworth Procedure(s): REASON: ABD PAIN, n.v ORDERING PHYSICIAN: GERSON CAMPBELL PROCEDURE: ABD PEL WO - CT ABDOMEN/PELVIS W/O CONTRAST CT ABDOMEN/PELVIS W/O CONTRAST HISTORY: Abdominal pain COMPARISON: 01/15/2023 TECHNIQUE: Multiple sequential axial images of the abdomen and pelvis were obtained from the dome of the diaphragm through symphysis pubis. Patient was not given contrast through intravenous route. Oral contrast was not given. FINDINGS: No pleural effusion is seen bilaterally. There is no evidence of parenchymal disease or pulmonary nodule of the visualized lower lungs. Degenerative changes of the thoracolumbar spine are present. The heart is not enlarged. Small gallstones are suspected in the gallbladder. There is mild gastric distention small bowel dilatation. This may be related to enteritis. Early bowel obstruction not completely excluded. Spleen is enlarged measuring 17 cm. The liver, spleen, adrenal glands and pancreas are unremarkable. There is no evidence of hydronephrosis bilaterally. No evidence of renal stone is seen. Fecal material is seen in the colon. There are normal size retroperitoneal and mesenteric lymph nodes. No ascites is seen. Atherosclerotic changes are present. No CT evidence of acute appendicitis is seen. There is mild diverticulosis. Pelvic sidewalls are symmetric bilaterally. Bladder is well distended without wall thickening. IMPRESSION: 1. Small gallstones suspected in the gallbladder. There may be enteritis with early bowel obstruction not excluded. Mild diverticulosis. CT was performed with one or more following dose reduction techniques: automated exposure control, adjustment of the mA and kv according to patient's size, or use of a iterative reconstruction technique. REASON: cp ORDERING PHYSICIAN: GERSON CAMPBELL [facility] PROCEDURE: CXR1VW - CHEST 1VW Exam Type: CHEST 1VW Clinical Information: cp Comparison: None Findings: The lungs are clear of infiltrates. The heart is enlarged. Bony and soft tissue structures of the chest wall are unremarkable. IMPRESSION: Cardiomegaly. Clear lungs. REASON: headache nausea ORDERING PHYSICIAN: GERSON CAMPBELL [facility] PROCEDURE: HEAD WO - CT HEAD/BRAIN W/O CONTRAST CT HEAD/BRAIN W/O CONTRAST HISTORY: Headaches COMPARISON: None TECHNIQUE: Multiple sequential axial images of the head were obtained from the base of the skull through vertex. Patient was not given contrast through intravenous route. FINDINGS: The ventricles and extraventricular CSF spaces are dilated consistent with cerebral atrophy. Nonspecific white matter changes seen. There is no midline shift, mass effect or herniation. No acute intracranial bleed is seen. There are bilateral ethmoid and maxillary sinusitis with mucoperiosteal thickening. IMPRESSION: 1. No acute intracranial bleed is seen. 2. Atrophy with white matter changes. CT was performed with one or more following dose reduction techniques: automated exposure control, adjustment of the mA and kv according to patient's size, or use of a iterative reconstruction technique. Assessment/Plan: ASSESSMENT: Nausea and vomiting, enteritis versus early bowel obstruction Diverticulosis Anemia Headache Hyperglycemia Electrolyte derangement (hypomagnesemia, hypocalcemia) Transaminitis Malnutrition/hypoalbuminemia Discharge Instructions: ADMISSION DATE : 09/20/24 DISCHARGE DATE: 09/22/24 DISPOSITION : Home CONDITION : Stable CLINICAL MARKETING MANAGER(S) : Surgery - Dr. Stallworth FOLLOW UP APPOINTMENT(S) : f/u with PCP in one week PROCEDURES: none IMAGING (S) : report attached to summary; wound culture MICROBIOLOGY : none ACTIVITY : ad karolina HOME MEDICATIONS : Continued Home Medications: Active Scripts Clopidogrel Bisulfate (Clopidogrel) 75 Mg Tablet, 75 MG PO DAILY, #30 TAB 1 Refill Prov:PERLA FRYE CARROTING MACHINE OFFBEARER 07/26/22 Reported Medications Doxazosin Mesylate (Doxazosin Mesylate) 8 Mg Tablet, 1 TAB PO HS for 30 Days, #30 TAB 0 Refills 25 Celecoxib (Celecoxib) 200 Mg Capsule, 1 CAP PO BID for pain for 30 Days, #30 CAP 0 Refills 25 Eltrombopag Olamine (Promacta) 50 Mg Tablet, 1 TAB PO DAILY for 30 Days, #30 TAB 0 Refills /25 Sennosides/Docusate Sodium (Senexon-S 50-8.6 mg Tablet) 8.6 Mg-50 Mg Tablet, 2 EACH PO DAILY, TAB /25 Gabapentin (Gabapentin) 100 Mg Capsule, 1 CAP PO DAILY for 30 Days, #90 CAP 0 Refills 25 Duloxetine HCl (Duloxetine HCl) 20 Mg Capsule.dr, 1 CAP PO DAILY for 30 Days, #30 CAP 0 Refills 25 Ropinirole HCl (Ropinirole HCl) 2 Mg Tablet, 1 TAB PO HS for 30 Days, #30 TAB 0 Refills /2/25 Pantoprazole Sodium (Pantoprazole Sodium) 40 Mg Tablet.dr, 1 TAB PO DAILY for 30 Days, #30 TAB 0 Refills /2/25 Furosemide (Furosemide) 20 Mg Tablet, 1 TAB PO DAILY for 30 Days, #30 TAB 0 Refills 2/2/25 Albuterol Sulfate (Ventolin Hfa) 90 Mcg Hfa.aer.ad, 2 PUFF IH Q4HPRN PRN for wheezing for 30 Days, #18 GM 0 Refills /2/25 Fluticasone/Umeclidin/Vilanter (Trelegy Ellipta 100-62.5-25) 100-62.5 Blst.w.dev, 1 PUFF IH DAILY for 30 Days, #1 EACH 0 Refills 09/21/24 Cetirizine HCl (Cetirizine HCl) 5 Mg Tablet, 1 TAB PO DAILY for allergy symptoms for 30 Days, #30 TAB 0 Refills 09/21/24 Insulin Aspart (Niacinamide) (Fiasp 100 Unit/ml Flextouch) 100 Unit/1 Ml Insuln.pen, 100 UNIT SQ TIDAC, SYRINGE 08/18/22 Insulin Degludec (Tresiba Flextouch U-100) 100 Unit/1 Ml Insuln.pen, 40 UNIT SQ DAILYBKFST, SYRINGE 08/18/22 Empagliflozin (Jardiance) 25 Mg Tablet, 25 MG PO AM, TAB 07/24/22 Glipizide (Glipizide) 5 Mg Tablet, 5 MG PO BID, TAB 07/24/22 Discontinued Reported Medications Albuterol Sulfate (Proventil Hfa) 6.7 Gm Hfa.aer.ad, 6.7 GM IH TIDP PRN for SHORTNESS OF BREATH 08/18/22 Fluticasone/Umeclidin/Vilanter (Trelegy Ellipta 100-62.5-25) 1 Each Blst.w.dev, 1 EACH IH DAILY 08/18/22 Fluticasone Propionate (Flonase Nasal [place]) 50 Mcg/[place] Ivalee, 50 MCG NASAL DAILY, SPRAY 08/18/22 Cilostazol (Cilostazol) 50 Mg Tablet, 50 MG PO BIDMEALS, TAB 08/18/22 Duloxetine HCl (Duloxetine HCl) 30 Mg Capsule.dr, 30 MG PO DAILY, CAP 08/18/22 Mupirocin (Mupirocin Ointment) 22 Gm Oint, 22 GM TP BID, APPL 07/25/22 Finasteride (Finasteride) 5 Mg Tablet, 5 MG PO DAILY, TAB 07/25/22 Doxazosin Mesylate (Doxazosin Mesylate) 8 Mg Tablet, 8 MG PO HS, TAB 07/24/22 Aspirin (Aspirin EC) 81 Mg Tablet.dr, 81 MG PO AM, TAB 07/24/22 Montelukast Sodium (Montelukast Sodium) 10 Mg Tablet, 10 MG PO AM, TAB 07/24/22 Acetaminophen (Acetaminophen) 325 Mg Tablet, 650 MG PO TIDP PRN for PAIN LEVEL 1 TO 5, TAB 07/24/22 Discontinued Scripts Amoxicillin/Potassium Clav (Augmentin 500-125 Tablet) 500 Mg-125 Mg Tablet, 1 TAB PO BID for 10 Days, #20 TAB 0 Refills Prov:SAMIA WINN MD 06/16/24 Fluticasone Propionate (Flonase Nasal [place]) 50 Mcg/[place], 50 MCG NASAL BID for 10 Days, #1 UNIT Prov:VALERIA HELM REGISTERED NURSE MATERNITY 05/09/24 Loratadine (Claritin) 10 Mg Tab, 10 MG PO DAILY, #30 TAB Prov:VALERIA HELM NP 05/09/24 Fluticasone Propionate (Flonase Nasal [place]) 50 Mcg/Actuation [place], 50 MCG NASAL BID, #1 BOTTLE 0 Refills Prov:MALENA UNGER NP 02/27/24 Loratadine (Loratadine) 10 Mg Tablet, 10 MG PO DAILY for 14 Days, #14 TAB 0 Refills Prov:MALENA UNGER NP 02/27/24 D-Methorphan Hb/P-Epd HCl/Bpm (Gqlpeubtxx-Cqmrjdoxljg-Iy Syr) 2 Mg-30 Mg-10 Mg/5 Ml Syrup, 118 ML PO BID, #60 ML Prov:BEBE BRIDGES MD 06/03/23 Cetirizine HCl (Cetirizine HCl) 10 Mg Tablet, 10 MG PO DAILY for 14 Days, #14 TAB 0 Refills Prov:SUJIT SAAB MD 05/06/23 Mometasone Furoate (Nasonex 24Hr Allergy) 17 Ml [place].pump, 1 SPRAY EN BID for 14 Days, #1 PUMP 0 Refills Prov:SUJIT SAAB MD 05/06/23 Pantoprazole Sodium (Pantoprazole Sodium) 40 Mg Tablet.dr, 40 MG PO DAILY, #30 TAB 2 Refills Prov:PERLA FRYE APRN 08/23/22 Sulfamethoxazole/Trimethoprim (Bactrim Ds Tablet) 1 Each Tablet, 1 TAB PO BID for 14 Days, #28 TAB 0 Refills Prov:PERLA FRYE APRN 08/23/22 Lisinopril (Lisinopril) 5 Mg Tablet, 5 MG PO DAILY, #7 TAB 0 Refills Prov:PERLA FRYE O CARROTING MACHINE OFFBEARER 08/23/22 Atorvastatin Calcium (Atorvastatin Calcium) 40 Mg Tablet, 40 MG PO HS, #30 TAB 3 Refills Prov:PERLA FRYE O CARROTING MACHINE OFFBEARER 07/26/22 Continued Medications: Albuterol Sulfate (Ventolin Hfa) 90 Mcg Hfa.aer.ad 2 PUFF IH Q4HPRN PRN for wheezing for 30 Days, #18 GM 0 Refills Celecoxib (Celecoxib) 200 Mg Capsule 1 CAP PO BID for pain for 30 Days, #30 CAP 0 Refills Cetirizine HCl (Cetirizine HCl) 5 Mg Tablet 1 TAB PO DAILY for allergy symptoms for 30 Days, #30 TAB 0 Refills Clopidogrel Bisulfate (Clopidogrel) 75 Mg Tablet 75 MG PO DAILY, #30 TAB 1 Refill Doxazosin Mesylate (Doxazosin Mesylate) 8 Mg Tablet 1 TAB PO HS for 30 Days, #30 TAB 0 Refills Duloxetine HCl (Duloxetine HCl) 20 Mg Capsule.dr 1 CAP PO DAILY for 30 Days, #30 CAP 0 Refills Eltrombopag Olamine (Promacta) 50 Mg Tablet 1 TAB PO DAILY for 30 Days, #30 TAB 0 Refills Empagliflozin (Jardiance) 25 Mg Tablet 25 MG PO AM, TAB Fluticasone/Umeclidin/Vilanter (Trelegy Ellipta 100-62.5-25) 100-62.5 Blst.w.dev 1 PUFF IH DAILY for 30 Days, #1 EACH 0 Refills Furosemide (Furosemide) 20 Mg Tablet 1 TAB PO DAILY for 30 Days, #30 TAB 0 Refills Gabapentin (Gabapentin) 100 Mg Capsule 1 CAP PO DAILY for 30 Days, #90 CAP 0 Refills Glipizide (Glipizide) 5 Mg Tablet 5 MG PO BID, TAB Insulin Aspart (Niacinamide) (Fiasp 100 Unit/ml Flextouch) 100 Unit/1 Ml Insuln.pen 100 UNIT SQ TIDAC, SYRINGE Insulin Degludec (Tresiba Flextouch U-100) 100 Unit/1 Ml Insuln.pen 40 UNIT SQ DAILYBKFST, SYRINGE Pantoprazole Sodium (Pantoprazole Sodium) 40 Mg Tablet.dr 1 TAB PO DAILY for 30 Days, #30 TAB 0 Refills Ropinirole HCl (Ropinirole HCl) 2 Mg Tablet 1 TAB PO HS for 30 Days, #30 TAB 0 Refills Sennosides/Docusate Sodium (Senexon-S 50-8.6 mg Tablet) 8.6 Mg-50 Mg Tablet 2 EACH PO DAILY, TAB Time spent arranging discharge: 1-30 minutes ATTESTATION BY PHYSICIAN I have seen and examined the patient. I reviewed the documentation, medical decision making, and treatment plan as noted by the resident provider above. I agree with the findings and plan of care. Verónica Grant MD, NIHITHA MD Sep 22, 2024 17:06
--- NOTE | 2024-09-22 17:56 | NUR ---
DISCHARGE PATIENT HAS BEEN DISCHARGED HOME. PIV REMOVED, PRESSURE GAUZE AND TAPE APPLIED TO SITE. DR NELSON HAS CLEARED PATIENT TO GO HOME. PATIENT VERBALIZES UNDERSTANDING OF DISCHARGE PAPERWORK. PATIENT IS TO FOLLOW UP WITH PCP. PENDING RIDE.
--- NOTE | 2024-09-22 18:52 | NUR ---
DISCHARGE PATIENT'S RIDE IS HERE. PATIENT WHEELED DOWN TO PRIVATE AUTOMOBILE, ACCOMPANIED BY FAMILY.
== END 2024-09-22 18:55 | disposition home or self-care (01) ==
LOC: EDH 21:31 → EDHIP 09-21 01:21 → INTOOBSV 09-21 01:21 → 3CH 09-22 00:11
PROVIDERS: ADMIT Internal Medicine; ATTEND Internal Medicine
DX: K57.30 Diverticulosis of large intestine without perforation or abscess without bleeding (principal); Z20.822 Contact with and (suspected) exposure to COVID-19; D64.9 Anemia, unspecified; E11.65 Type 2 diabetes mellitus with hyperglycemia; E83.51 Hypocalcemia; E83.42 Hypomagnesemia; E88.09 Other disorders of plasma-protein metabolism, not elsewhere classified; R74.01 Elevation of levels of liver transaminase levels; E46 Unspecified protein-calorie malnutrition; K52.9 Noninfective gastroenteritis and colitis, unspecified; E11.51 Type 2 diabetes mellitus with diabetic peripheral angiopathy without gangrene; I73.9 Peripheral vascular disease, unspecified; J44.9 Chronic obstructive pulmonary disease, unspecified; E78.00 Pure hypercholesterolemia, unspecified; I25.10 Atherosclerotic heart disease of native coronary artery without angina pectoris; I10 Essential (primary) hypertension; M19.90 Unspecified osteoarthritis, unspecified site; Z88.6 Allergy status to analgesic agent; Z88.8 Allergy status to other drugs, medicaments and biological substances; Z68.32 Body mass index [BMI] 32.0-32.9, adult; Z79.4 Long term (current) use of insulin; Z79.899 Other long term (current) drug therapy
CPT/HCPCS: 96375 ×4; 82550; 80076; 83735 ×3; 84484; 80048; 83690; 85025 ×2; 87804 ×2; 87426; 71045; 70450; 74176; 93005; 96376 ×2; 96361; 96365; 96366 ×2; 96367; 99285; 83036; 84443 ×2; 80053 ×2; 85027; 82948 ×9; 81001; 36415 ×2; 84145; 84100; J7030; J2405; J2470 ×4; G0378 ×5; J3475; J7120; J7070; J0696 ×2; J3490 ×5; 96374

== ENCOUNTER 2024-10-02 15:48 | Emergency (ER) | payer MEDICARE ==
[~2024-10-02] VITALS: Ht 162.6 cm; Wt 84.4 kg
[~2024-10-02 15:48] MED LIST changes: -ACET-3859 PO; +ALBU18HF7 IH; -ALBU6.7H14 IH; -AMOX-426 PO; -ASPI-1443 PO; -ATOR40TA71 PO; +CELE-125 PO; -CETI10TA57 PO; +CETI5TAB12 PO; -CILO50TA2 PO; -D-ME118S56 PO; +DULO20CA18 PO; -DULO30CA52 PO; +ELTR50TA PO; -FINA5TAB41 PO; -FLUT16H NASAL; +FURO20TA4 PO; +GABA-529 PO; -LISI5TAB21 PO; -LORA10TA7 PO; -MOME17SP15 EN; -MONT-39 PO; -MUPI22OI2 TP; +ROPI2TAB53 PO; +SENN-297 PO; -SULF1TAB42 PO
--- NOTE | 2024-10-02 16:09 | ERN ---
General Chief Complaint: Itching Stated Complaint: ITCHING STOMACH Time Seen by MD: 15:49 Source: patient History of Present Illness Initial Comments PATIENT IS A 74-YEAR-OLD MALE COMING IN TO BE EVALUATED FOR ABDOMINAL SKIN IRRITATION. PATIENT STATES THAT HE HAS BEEN HAVING PRURITUS NO RASH FOR COUPLE OF HOURS. PATIENT STATES HE CAME IN FOR FURTHER EVALUATION. Allergies: Coded Allergies: ibuprofen (Unverified Allergy, Unknown, 01/27/19) metformin (Unverified Allergy, Unknown, 09/08/19) Home Meds Active Scripts Clopidogrel Bisulfate (Clopidogrel) 75 Mg Tablet, 75 MG PO DAILY, #30 TAB 1 Refill Prov:PERLA FRYE CONCHE OPERATOR 07/26/22 Reported Medications Doxazosin Mesylate (Doxazosin Mesylate) 8 Mg Tablet, 1 TAB PO HS for 30 Days, #30 TAB 0 Refills 2/2/25 Celecoxib (Celecoxib) 200 Mg Capsule, 1 CAP PO BID for pain for 30 Days, #30 CAP 0 Refills 2/2/25 Eltrombopag Olamine (Promacta) 50 Mg Tablet, 1 TAB PO DAILY for 30 Days, #30 TAB 0 Refills 2/2/25 Sennosides/Docusate Sodium (Senexon-S 50-8.6 mg Tablet) 8.6 Mg-50 Mg Tablet, 2 EACH PO DAILY, TAB 2/2/25 Gabapentin (Gabapentin) 100 Mg Capsule, 1 CAP PO DAILY for 30 Days, #90 CAP 0 Refills 2/2/25 Duloxetine HCl (Duloxetine HCl) 20 Mg Capsule.dr, 1 CAP PO DAILY for 30 Days, #30 CAP 0 Refills 2/2/25 Ropinirole HCl (Ropinirole HCl) 2 Mg Tablet, 1 TAB PO HS for 30 Days, #30 TAB 0 Refills 2/2/25 Pantoprazole Sodium (Pantoprazole Sodium) 40 Mg Tablet.dr, 1 TAB PO DAILY for 30 Days, #30 TAB 0 Refills 2/2/25 Furosemide (Furosemide) 20 Mg Tablet, 1 TAB PO DAILY for 30 Days, #30 TAB 0 Refills 2/2/25 Albuterol Sulfate (Ventolin Hfa) 90 Mcg Hfa.aer.ad, 2 PUFF IH Q4HPRN PRN for wheezing for 30 Days, #18 GM 0 Refills 2/2/25 Fluticasone/Umeclidin/Vilanter (Trelegy Ellipta 100-62.5-25) 100-62.5 Blst.w.dev, 1 PUFF IH DAILY for 30 Days, #1 EACH 0 Refills 09/21/24 Cetirizine HCl (Cetirizine HCl) 5 Mg Tablet, 1 TAB PO DAILY for allergy symptoms for 30 Days, #30 TAB 0 Refills 09/21/24 Insulin Aspart (Niacinamide) (Fiasp 100 Unit/ml Flextouch) 100 Unit/1 Ml Insuln.pen, 100 UNIT SQ TIDAC, SYRINGE 08/18/22 Insulin Degludec (Tresiba Flextouch U-100) 100 Unit/1 Ml Insuln.pen, 40 UNIT SQ DAILYBKFST, SYRINGE 08/18/22 Empagliflozin (Jardiance) 25 Mg Tablet, 25 MG PO AM, TAB 07/24/22 Glipizide (Glipizide) 5 Mg Tablet, 5 MG PO BID, TAB 07/24/22 Past Medical History Past Medical History: Diabetes-Type II, Hypertension Medical History Other: PVD Past Surgical History: Other Surgical History Other: LEFT FOOT SURGERY Family History Family History: Negative Social History Social History: Negative, Lives with family, Other ROS Dictation CONSTITUTIONAL: NO CHILLS, NO FEVER, NO WEAKNESS, NO DIAPHORESIS, NO MALAISE. HEAD/FACE: NO SIGNS OF TRAUMA. EENT: NO EYE PAIN, NO BLURRED VISION, NO TEARING, NO DOUBLE VISION, NO EAR PAIN, NO EAR DISCHARGE, NO NOSE PAIN, NO NASAL CONGESTION, NO THROAT PAIN, NO THROAT SWELLING, NO MOUTH PAIN. RESPIRATORY: NO COUGH, NO ORTHOPNEA, NO SOB, NO STRIDOR, NO WHEEZING. CARDIOVASCULAR: NO CHEST PAIN, NO EDEMA, NO PALPITATIONS, NO SYNCOPE. GASTROINTESTINAL/ABDOMINAL: NO ABDOMINAL PAIN, NO CONSTIPATION, NO DIARRHEA, NO NAUSEA, NO VOMITING. GENITOURINARY: NO ABNORMAL DISCHARGE, NO DYSURIA, NO FREQUENT URINATION, NO HEMATURIA. NO COMPLAINTS OF PAIN IN THE GENITALS. MUSCULOSKELETAL: NO BACK PAIN, NO GOUT, NO JOINT PAIN, NO JOINT SWELLING, NO MUSCLE PAIN, NO MUSCLE STIFFNESS, NO NECK PAIN. INTEGUMENTARY: NO CHANGE IN COLOR, NO CHANGE IN HAIR/NAILS, DRYNESS, NO LESION, NO LUMPS, NO RASH. NEUROLOGICAL/PSYCH: NO ANXIETY, NOT DEPRESSED, NO EMOTIONAL PROBLEM, NO HEADACHE, NO NUMBNESS, NO PRE-EXISTING DEFICIT, NO HISTORY OF SEIZURES, NO TREMORS, NO WEAKNESS. HEMATOLOGIC/LYMPHATIC: NOT ANEMIC, NO HISTORY OF BLOOD CLOTS, NO APPARENT BLEEDING, NO BRUISING, GLANDS NOT SWOLLEN. ALL SYSTEMS NEGATIVE, EXCEPT NOTED. Physical Exam Physical Exam Dictation VITAL SIGNS: REVIEWED. GENERAL APPEARANCE: ALERT, ORIENTED X3, NO ACUTE DISTRESS, OBESE. HEAD AND FACE: NON-TRAUMATIC. EYES: PERRL, PINK CONJUNCTIVAS, EYELID NO TRAUMA, ANTERIOR CHAMBER CLEAR. EARS: PINNAS INTACT AND NO SIGNS OF TRAUMA OR ERYTHEMA. EAR CANALS CLEAR AND NO DISCHARGE. TMS NO ERYTHEMA. NOSE: NO DISCHARGE, NO BLEEDING. OROPHARYNX: MOUTH NORMAL, TEETH NO CARIES, TONGUE PINK. PHARYNX CLEAR, NO ERYTHEMA. TONSILS NO EXUDATES, NO ABSCESSES NOTED. MUCOUS MEMBRANE MOIST. NECK: SUPPLE, NON-TENDER, NO THYROMEGALY, NO MASSES, NO JVD, NO BRUITS. BREAST: DEFERRED. CHEST: NO TENDERNESS, NO CREPITUS, NO PARADOXICAL MOVEMENT, NO RETRACTIONS. LUNGS: CLEAR, WELL-VENTILATED, SYMMETRIC, NO RALES, NO WHEEZING, NO RHONCHI, NO STRIDOR, GOOD BREATH SOUNDS BILATERALLY. HEART: REGULAR RATE, REGULAR RHYTHM, NO MURMUR, NO GALLOPS. VASCULAR: NO PERIPHERAL EDEMA. ABDOMEN: SOFT, POSITIVE BOWEL SOUNDS, NONDISTENDED, NO GUARDING, NONTENDER, NO REBOUND, NO MASSES NO HEPATOMEGALY, NO SPLENOMEGALY, NO MOSCOSO'S SIGN, NO HERNIAS. RECTAL: DEFERRED. GENITAL: DEFERRED. NEUROLOGICAL: NORMAL SPEECH, GROSS MOTOR FUNCTION INTACT, GROSS SENSORY FUNCTION INTACT. MUSCULOSKELETAL: NECK NONTENDER, FULL RANGE OF MOTION, BACK NONTENDER, FULL RANGE OF MOTION. EXTREMITIES: NONTENDER, FULL RANGE OF MOTION. SKIN: COLOR PINK, DRY, NO TURGOR, NO RASH, NO LACERATIONS, NO ABRASIONS, NO CON TUSIONS. LYMPHATICS: DEFERRED. Results Laboratory and Microbiology Labs Reviewed?: Yes MDM MDM: DIFFERENTIAL DIAGNOSIS: ALLERGIES, CONTACT DERMATITIS, PATIENT IS A 74-YEAR-OLD MALE COMING IN TO BE EVALUATED FOR PRURITUS. UPON EVALUATION NO RASH WAS PRESENT. PATIENT RECEIVED BENADRYL AND DECADRON STATES HE FEELS MUCH BETTER. PATIENT WILL BE DISCHARGED IN STABLE CONDITION WITH A DIAGNOSIS OF CONTACT DERMATITIS. I ADVISED HIM APPROPRIATE FOLLOW UP WITH PCP IN 1-2 DAYS ED Course Orders Procedure Category Date Status Time Dexamethasone 4mg/Ml PHA 10/02/24 Complete 1ml Vial (Dexametha 16:00 Diphenhydramine Hcl PHA 10/02/24 Complete (Benadryl Inj) 16:00 Current Medications Medications (Trade) Dose Ordered Sig/I[place]ella Route PRN Reason Start Time Stop Time Status Last Admin Dose Admin Dexamethasone Sodium Phosphate (dexaMETHasone 4MG/ML 1ML VIAL) 4 mg ONCE ONCE IM 10/02/24 16:00 10/02/24 16:01 DC 10/02/24 16:32 Diphenhydramine HCl (BENAdryl INJ) 25 mg ONCE ONCE IM 10/02/24 16:00 10/02/24 16:01 DC 10/02/24 16:32 Vital Signs Date Time Temp Pulse Resp B/P (MAP) Pulse Ox O2 Delivery O2 Flow Rate FiO2 10/02/24 15:52 98.4 66 16 144/63 97 Room Air DX & DISP Disposition: Discharge Departure Impression: Primary Impression: Contact dermatitis Condition: Stable Scripts Prednisone (Prednisone) 5 Mg Tablet 1 TAB PO DAILY for 7 Days, #7 TAB 0 Refills Prov: EUNICE REDDY MD 10/02/24 Additional Instructions: FOLLOW-UP WITH PRIMARY CARE PROVIDER IN 1 TO 2 DAYS. TAKE MEDICATIONS DIRECTED HERE IN THE EMERGENCY ROOM. OKAY TO CONTINUE HOME MEDICATIONS UNLESS OTHERWISE DISCUSSED DURING YOUR VISIT IN THE EMERGENCY ROOM TODAY. RETURN TO YOUR NEAREST EMERGENCY ROOM IF SYMPTOMS WORSEN OR IF THERE IS NO IMPROVEMENT. CALL 911 IF YOU NEED IMMEDIATE ASSISTANCE. TAKE TYLENOL [id number] NEEDED AND IF NO CONTRAINDICATIONS ARE PRESENT. INCREASE ORAL HYDRATION. A WOUND CULTURE OR URINE CULTURE WAS ORDERED HERE IN THE EMERGENCY ROOM DEPARTMENT PLEASE FOLLOW-UP WITH PRIMARY CARE PROVIDER AND ADVISE THEM TO GET REPEAT PORTS FROM OUR FACILITY. IF YOU HAD ANY YADIRA WRAP/SPLINTS THAT WERE APPLIED HERE, PL EASE DO NOT REMOVE THEM UNTIL YOU SEE YOUR PRIMARY CARE OR SPECIALTY. REFERRALS: Referrals: JOHN STROUD MD (PCP) Time of Disposition: 17:13 EUNICE REDDY MD Oct 02, 2024 16:09
[2024-10-02] MEDS: DiphenhydrAMINE HCL 50 MG/ML VIAL IM ONE (16:32)
[2024-10-02] MEDS: dexaMETHasone SOD PHOSPHATE 4 MG/ML 1ML VIAL IM ONE (16:32)
[2024-10-02] MEDS ORDERED: PRED5TAB PO (17:14)
[2024-10-02 17:21] VITALS: BP 132/90; PULSE 80; RESP 16; TEMP 98; O2SAT 98
[2024-10-03] MEDS ORDERED: DIPH50 PO (21:57)
== END 2024-10-02 17:20 | disposition home or self-care (01) ==
LOC: EDH 15:48
DX: L25.9 Unspecified contact dermatitis, unspecified cause (principal); E11.9 Type 2 diabetes mellitus without complications; I10 Essential (primary) hypertension; Z79.02 Long term (current) use of antithrombotics/antiplatelets; Z79.4 Long term (current) use of insulin; Z79.84 Long term (current) use of oral hypoglycemic drugs; Z79.899 Other long term (current) drug therapy; Z88.6 Allergy status to analgesic agent
CPT/HCPCS: 99284; 96372 ×2; J1100; J1200

== ENCOUNTER 2024-10-03 21:45 | Emergency (ER) | payer MEDICARE ==
[~2024-10-03] VITALS: Ht 162.6 cm; Wt 84.4 kg
[~2024-10-03 21:45] MED LIST changes: +ACET-3859 PO; +ALBU6.7H14 IH; +AMOX-426 PO; +ASPI-1443 PO; +ATOR40TA71 PO; +CETI10TA57 PO; +CILO50TA2 PO; +D-ME118S56 PO; +DULO30CA52 PO; +FINA5TAB41 PO; +FLUT16H NASAL; +LISI5TAB21 PO; +LORA10TA7 PO; +MOME17SP15 EN; +MONT-39 PO; +MUPI22OI2 TP; +PRED5TAB PO; +SULF1TAB42 PO
[2024-10-03] MEDS ORDERED: DIPH50 PO (21:57)
--- NOTE | 2024-10-03 21:58 | ERN ---
ED Note History of Present Illness Stated Complaint: ITCHING Chief Complaint: Itching Time Seen by MD: 21:48 Dictation: PATIENT IS A 74-YEAR-OLD MALE COMING IN WITH COMPLAINTS OF ANTERIOR ABDOMINAL ITCHING HE HAS HAD FOR 2-3 DAYS. NO OBSERVABLE RASH. THERE IS MILD INFLAMM ATION FROM THE ITCHING. HE WAS SEEN HERE LAST NIGHT AND WAS GIVEN PREDNISONE AND TOLD TO SEE HIS PRIMARY CARE DOCTOR TODAY HE SAID THAT HE WENT TO HIS DOCTOR'S OFFICE AND HE WAS ON VACATION. NO SHORTNESS A BREATH NO ANGIOEDEMA. Allergies: Coded Allergies: ibuprofen (Unverified Allergy, Unknown, 01/27/19) metformin (Unverified Allergy, Unknown, 09/08/19) Home Meds Active Scripts Prednisone (Prednisone) 5 Mg Tablet, 1 TAB PO DAILY for 7 Days, #7 TAB 0 Refills Prov:EUNICE REDDY MD 10/02/24 Clopidogrel Bisulfate (Clopidogrel) 75 Mg Tablet, 75 MG PO DAILY, #30 TAB 1 Refill Prov:PERLA FRYEP 07/26/22 Reported Medications Doxazosin Mesylate (Doxazosin Mesylate) 8 Mg Tablet, 1 TAB PO HS for 30 Days, #30 TAB 0 Refills 25 Celecoxib (Celecoxib) 200 Mg Capsule, 1 CAP PO BID for pain for 30 Days, #30 CAP 0 Refills 2//25 Eltrombopag Olamine (Promacta) 50 Mg Tablet, 1 TAB PO DAILY for 30 Days, #30 TAB 0 Refills //25 Sennosides/Docusate Sodium (Senexon-S 50-8.6 mg Tablet) 8.6 Mg-50 Mg Tablet, 2 EACH PO DAILY, TAB 2//25 Gabapentin (Gabapentin) 100 Mg Capsule, 1 CAP PO DAILY for 30 Days, #90 CAP 0 Refills /25 Duloxetine HCl (Duloxetine HCl) 20 Mg Capsule.dr, 1 CAP PO DAILY for 30 Days, #30 CAP 0 Refills 2/2/25 Ropinirole HCl (Ropinirole HCl) 2 Mg Tablet, 1 TAB PO HS for 30 Days, #30 TAB 0 Refills 2/2/25 Pantoprazole Sodium (Pantoprazole Sodium) 40 Mg Tablet.dr, 1 TAB PO DAILY for 30 Days, #30 TAB 0 Refills 25 Furosemide (Furosemide) 20 Mg Tablet, 1 TAB PO DAILY for 30 Days, #30 TAB 0 Refills 09/21/24 Albuterol Sulfate (Ventolin Hfa) 90 Mcg Hfa.aer.ad, 2 PUFF IH Q4HPRN PRN for wheezing for 30 Days, #18 GM 0 Refills 09/21/24 Fluticasone/Umeclidin/Vilanter (Trelegy Ellipta 100-62.5-25) 100-62.5 Blst.w.dev, 1 PUFF IH DAILY for 30 Days, #1 EACH 0 Refills 09/21/24 Cetirizine HCl (Cetirizine HCl) 5 Mg Tablet, 1 TAB PO DAILY for allergy symptoms for 30 Days, #30 TAB 0 Refills 09/21/24 Insulin Aspart (Niacinamide) (Fiasp 100 Unit/ml Flextouch) 100 Unit/1 Ml Insuln.pen, 100 UNIT SQ TIDAC, SYRINGE 08/18/22 Insulin Degludec (Tresiba Flextouch U-100) 100 Unit/1 Ml Insuln.pen, 40 UNIT SQ DAILYBKFST, SYRINGE 08/18/22 Empagliflozin (Jardiance) 25 Mg Tablet, 25 MG PO AM, TAB 07/24/22 Glipizide (Glipizide) 5 Mg Tablet, 5 MG PO BID, TAB 07/24/22 Past Medical History Past Medical History: COPD, Diabetes-Type II, Renal Disese Additional Past Medical Hx: PVD Surgical History: Other Surgical History Other: LEFT FOOT SX Family History: Negative Social History: Negative, Lives with family, Other RN Note Reviewed/Agreed w/PFSH: Yes Review of System Dictation CONSTITUTIONAL: NEGATIVE EXCEPT FOR HPI HEAD/FACE: NEGATIVE EXCEPT FOR HPI EENT: NEGATIVE EXCEPT FOR HPI RESPIRATORY: NEGATIVE EXCEPT FOR HPI GASTROINTESTINAL/ABDOMINAL: NEGATIVE EXCEPT FOR HPI GENITOURINARY: NEGATIVE EXCEPT FOR HPI MUSCULOSKELETAL: NEGATIVE EXCEPT FOR HPI INTEGUMENTARY: NEGATIVE EXCEPT FOR HPI ITCHING TO STOMACH NEUROLOGICAL/PSYCH: NEGATIVE EXCEPT FOR HPI HEMATOLOGIC/LYMPHATIC: NEGATIVE EXCEPT FOR HPI ALL SYSTEMS NEGATIVE, EXCEPT NOTED ABOVE. 13 POINT REVIEW OF SYSTEMS ASSESSED AND ALL NEGATIVE EXCEPT FOR ABOVE. Initial Vital Sign VS Vital Signs Date Time Temp Pulse Resp B/P (MAP) Pulse Ox O2 Delivery O2 Flow Rate FiO2 10/03/24 21:46 98.2 69 18 140/60 97 Room Air 0 Physical Exam Dictation VITAL SIGNS REVIEWED GENERAL APPEARANCE: ALERT, ORIENTED X 3, MILD ACUTE DISTRESS, WELL DEVELOPED, NOURISHED. HEAD AND FACE: NON-TRAUMATIC. EYES: PERRL, PINK CONJUNCTIVAS, EYELID NO TRAUMA, ANTERIOR CHAMBER WITH ARCUS SENILIS. EARS: PINNAS INTACT AND NO SIGNS OF TRAUMA OR ERYTHEMA EAR CANALS CLEAR AND NO DISCHARGE TM NO ERYTHEMA NOSE: NO DISCHARGE, NO BLEEDING. OROPHARYNX: MOUTH NORMAL, TONGUE PINK, PHARYNX CLEAR,NO ERYTHEMA, TONSILS NO EXUDATES, NO ABSCESSES NOTED, MUCOUS MEMBRANE MOIST NECK: SUPPLE, NON-TENDER, NO THYROMEGALY, NO MASSES, NO JVD, NO BRUITS BREAST:DEFERRED CHEST:NO TENDERNESS, NO CREPITUS, NO PARADOXICAL MOVEMENT, NO RETRACTIONS LUNGS:CLEAR, WELL-VENTILATED, SYMMETRIC, NO RALES, NO WHEEZING, NO RHONCHI, NO STRIDOR, GOOD BREATH SOUNDS BILATERALLY HEART: REGULAR RATE, REGULAR RHYTHM, NO MURMUR, NO GALLOPS VASCULAR: NO PERIPHERAL EDEMA, ABDOMEN: SOFT, POSITIVE BOWEL SOUNDS, NONDISTENDED, NO GUARDING, NONTENDER, NO REBOUND, NO MASSES NO HEPATOMEGALY, NO SPLENOMEGALY, NO MOSCOSO'S SIGN, NO HERNIAS. RECTAL: DEFERRED GENITAL: DEFERRED NEUROLOGICAL: NORMAL SPEECH, MOTOR FUNCTION INTACT, SENSORY FUNCTION INTACT MUSCULOSKELETAL: NECK NONTENDER, FULL RANGE OF MOTION, BACK NONTENDER, FULL RANGE OF MOTION, EXTREMITIES: NONTENDER, FULL RANGE OF MOTION SKIN: COLOR PINK, DRY, NO TURGOR, NO RASH, NO LACERATIONS, NO ABRASIONS, NO CONTUSIONS. MILD INFLAMMATION TO THE ANTERIOR ABDOMEN. SECONDARY TO ITCHING LYMPHATIC: DEFERRED Results (Laboratory/Radiology) Labs Reviewed?: Yes ED Course ED Course Orders Procedure Category Date Status Time Dexamethasone 4mg/Ml PHA 10/03/24 In Process 1ml Vial (Dexametha 22:00 Diphenhydramine Hcl PHA 10/03/24 In Process (Benadryl Cap) 22:00 Vital Signs Date Time Temp Pulse Resp B/P (MAP) Pulse Ox O2 Delivery O2 Flow Rate FiO2 10/03/24 21:46 98.2 69 18 140/60 97 Room Air 0 NO LABS OR IMAGING INDICATED. PATIENT WILL BE GIVEN DECADRON8 MG WITH BENADRYL 50 IM. TOLD TO FOLLOW UP WITH HIS PRIMARY CARE DOCTOR. Medical Decision Making MDM MEDICAL DECISION-MAKING BASED ON EMPIRIC TREATMENT FOR CONTACT DERMATITIS. PATIENT GIVEN8 MG DECADRON, 50 MG OF BENADRYL. STATES HE FEELS BETTER. PATIENT WAS INSTRUCTED TO CONTINUE PREDNISONE FROM HIS VISIT LAST NIGHT TAKE BENADRYL 50 MG EVERY 6 HOURS FOR TWO MORE DOSES AND SEE HIS PRIMARY CARE DOCTOR FOR MANAGEMENT OR REFERRAL TO ALLERGY DX & DISP Disposition: Discharge Departure Impression: Primary Impression: Contact dermatitis Condition: Stable Scripts Diphenhydramine HCl (Benadryl) 50 Mg Cap 50 MG PO Q6H for itching/rash, #20 CAP 0 Refills Prov: VALERIA HELM NP 10/03/24 Additional Instructions: FOLLOW-UP WITH PRIMARY CARE PROVIDER IN 1 TO 2 DAYS. TAKE MEDICATIONS DIRE CTED HERE IN THE EMERGENCY ROOM. OKAY TO CONTINUE HOME MEDICATIONS UNLESS OTHERWISE DISCUSSED DURING YOUR VISIT IN THE EMERGENCY ROOM TODAY. RETURN TO YOUR NEAREST EMERGENCY ROOM IF SYMPTOMS WORSEN OR IF THERE IS NO IMPROVEMENT. CALL 911 IF YOU NEED IMMEDIATE ASSISTANCE. TAKE TYLENOL OR MOTRIN [id number] NEEDED AND IF NO CONTRAINDICATIONS ARE PRESENT. INCREASE ORAL HYDRATION. A WOUND CULTURE OR URINE CULTURE WAS ORDERED HERE IN THE EMERGENCY ROOM DEPARTMENT PLEASE FOLLOW-UP WITH PRIMARY CARE PROVIDER AND ADVISE THEM TO GET REPEAT PORTS FROM OUR FACILITY. IF YOU HAD ANY YADIRA WRAP/SPLINTS THAT WERE APPLIED HERE, PLEASE DO NOT REMOVE THEM UNTIL YOU SEE YOUR PRIMARY CARE OR SPECIALTY. TAKE BENADRYL 50 MG EVERY 6 HOURS FOR THREE MORE DOSES. CONTINUE PREDNISONE FROM YOUR VISIT YESTERDAY. FOLLOW UP WITH YOUR DOCTOR FOR MANAGEMENT OR REFERRAL TO AN FIELD RADIO TECHNICIAN. Referrals: JOHN STROUD MD (PCP) Time of Disposition: 21:56 and I agree with, Diagnosis and Plan VALERIA HELM NP Oct 03, 2024 21:58
[2024-10-03] MEDS: dexaMETHasone SOD PHOSPHATE 4 MG/ML 1ML VIAL IM ONE (22:45)
[2024-10-03] MEDS: DiphenhydrAMINE HCL 25 MG CAPSULE PO ONE (22:45)
[2024-10-03 22:50] VITALS: BP 137/73; PULSE 72; RESP 19; TEMP 98.4; O2SAT 98
--- NOTE | 2024-10-03 23:04 | NUR ---
CALLED IN WAITING AREA, NO ANSWER.
== END 2024-10-03 22:52 | disposition home or self-care (01) ==
LOC: EDH 21:45
DX: L25.9 Unspecified contact dermatitis, unspecified cause (principal); E11.51 Type 2 diabetes mellitus with diabetic peripheral angiopathy without gangrene; J44.9 Chronic obstructive pulmonary disease, unspecified; Z79.02 Long term (current) use of antithrombotics/antiplatelets; Z79.4 Long term (current) use of insulin; Z79.52 Long term (current) use of systemic steroids; Z79.84 Long term (current) use of oral hypoglycemic drugs; Z79.899 Other long term (current) drug therapy; Z88.6 Allergy status to analgesic agent
CPT/HCPCS: 99283; 96372; J1100; Q0163

== ENCOUNTER 2024-12-24 21:55 | Emergency (ER) | payer MEDICARE, MEDICAID ==
[~2024-12-24] VITALS: Ht 162.6 cm; Wt 88.9 kg
[~2024-12-24 21:55] MED LIST changes: -ACET-3859 PO; -ALBU6.7H14 IH; -AMOX-426 PO; -ASPI-1443 PO; -ATOR40TA71 PO; -CETI10TA57 PO; -CILO50TA2 PO; -D-ME118S56 PO; +DIPH50 PO; -DULO30CA52 PO; -FINA5TAB41 PO; -FLUT16H NASAL; -LISI5TAB21 PO; -LORA10TA7 PO; -MOME17SP15 EN; -MONT-39 PO; -MUPI22OI2 TP; -SULF1TAB42 PO
--- NOTE | 2024-12-24 23:27 | ERN ---
General Chief Complaint: Other Problems Stated Complaint: C/O "BURNING TO CHEST" Time Seen by MD: 22:04 Source: patient History of Present Illness Initial Comments Mr. Moreno is a 74-year-old male with a history of COPD, DM, hypercholesteremia, hypertension, PVD, arthritis, and CAD who presents to [facility] ED with a chief complaint itching across the inside of his chest and burning for two days. He also describes the pain as cutting across the inside of his chest. He is also concerned about a steroid injection shot that he received yesterday at [facility] that this morning now has some peeling skin. No up per respiratory tract infection symptoms no GI symptoms no changes in defecation or urination. Timing/Duration: 24 hours Allergies: Coded Allergies: ibuprofen (Unverified Allergy, Unknown, 01/27/19) metformin (Unverified Allergy, Unknown, 09/08/19) Home Meds Active Scripts Diphenhydramine HCl (Benadryl) 50 Mg Cap, 50 MG PO Q6H for itching/rash, #20 CAP 0 Refills Prov:VALERIA HELM NP 10/03/24 Prednisone (Prednisone) 5 Mg Tablet, 1 TAB PO DAILY for 7 Days, #7 TAB 0 Refills Prov:EUNICE REDDY MD 10/02/24 Clopidogrel Bisulfate (Clopidogrel) 75 Mg Tablet, 75 MG PO DAILY, #30 TAB 1 Refill Prov:PERLA FRYE RN ON SITE 07/26/22 Reported Medications Doxazosin Mesylate (Doxazosin Mesylate) 8 Mg Tablet, 1 TAB PO HS for 30 Days, #30 TAB 0 Refills 09/21/24 Celecoxib (Celecoxib) 200 Mg Capsule, 1 CAP PO BID for pain for 30 Days, #30 CAP 0 Refills /25 Eltrombopag Olamine (Promacta) 50 Mg Tablet, 1 TAB PO DAILY for 30 Days, #30 TAB 0 Refills /25 Sennosides/Docusate Sodium (Senexon-S 50-8.6 mg Tablet) 8.6 Mg-50 Mg Tablet, 2 EACH PO DAILY, TAB /10/14 Gabapentin (Gabapentin) 100 Mg Capsule, 1 CAP PO DAILY for 30 Days, #90 CAP 0 Refills 09/21/24 Duloxetine HCl (Duloxetine HCl) 20 Mg Capsule.dr, 1 CAP PO DAILY for 30 Days, #30 CAP 0 Refills /25 Ropinirole HCl (Ropinirole HCl) 2 Mg Tablet, 1 TAB PO HS for 30 Days, #30 TAB 0 Refills 2/2/25 Pantoprazole Sodium (Pantoprazole Sodium) 40 Mg Tablet.dr, 1 TAB PO DAILY for 30 Days, #30 TAB 0 Refills /2/25 Furosemide (Furosemide) 20 Mg Tablet, 1 TAB PO DAILY for 30 Days, #30 TAB 0 Refills 2/2/25 Albuterol Sulfate (Ventolin Hfa) 90 Mcg Hfa.aer.ad, 2 PUFF IH Q4HPRN PRN for wheezing for 30 Days, #18 GM 0 Refills /25 Fluticasone/Umeclidin/Vilanter (Trelegy Ellipta 100-62.5-25) 100-62.5 Blst.w.dev, 1 PUFF IH DAILY for 30 Days, #1 EACH 0 Refills 09/21/24 Cetirizine HCl (Cetirizine HCl) 5 Mg Tablet, 1 TAB PO DAILY for allergy symptoms for 30 Days, #30 TAB 0 Refills 25 Insulin Aspart (Niacinamide) (Fiasp 100 Unit/ml Flextouch) 100 Unit/1 Ml Insuln.pen, 100 UNIT SQ TIDAC, SYRINGE 08/18/22 Insulin Degludec (Tresiba Flextouch U-100) 100 Unit/1 Ml Insuln.pen, 40 UNIT SQ DAILYBKFST, SYRINGE 08/18/22 Empagliflozin (Jardiance) 25 Mg Tablet, 25 MG PO AM, TAB 07/24/22 Glipizide (Glipizide) 5 Mg Tablet, 5 MG PO BID, TAB 07/24/22 Past Medical History Past Medical History: Arthritis, Diabetes-Type II, Hypertension, Other Medical History Other: NEUROPATHY Past Surgical History: Unknown Surgical History Other: LEFT FOOT SX Family History Family History: Negative Social History Social History: Negative, Lives with family, Other Constitutional: (-) chills, (-) diaphoresis, (-) fever, (-) malaise, (-) weakne ss, (-) other documentation EENTM: (-) eye pain, (-) blurred vision, (-) tearing, (-) double vision, (-) e ar pain, (-) ear discharge, (-) nose pain, (-) nose congestion, (-) throat pain, (-) Throat swelling, (-) mouth pain, (-) tooth pain, (-) mouth swelling, (-) other documentation Respiratory: (-) cough, (-) orthopnea, (-) short of breath, (-) stridor, (-) wheezing, (-) other documentation Cardiovascular: (+) chest pain Gastrointestinal/Abdominal: (-) nausea, (-) vomiting, (-) diarrhea, (-) abdominal pain, (-) abdominal distention, (-) constipation, (-) rectal bleeding, (-) dark stool/melena, (-) other documentation Musculoskeletal: (-) Neck pain, (-) back pain, (-) Flank Pain, (-) joint pain, (-) joint swelling, (-) muscle pain, (-) muscle stiffness, (-) gout, (-) other documentation Skin: (-) laceration, (-) contusion, (-) abrasion, (-) abscess, (-) rash, (-) change in color, (-) change in hair, (-) change in nails, (-) diaphoresis, (-) dryness, (-) other documentation Neuro: (-) altered mental status, (-) headache, (-) syncope, (-) paralysis, (-) numbness, (-) seizure, (-) pre-existing deficit, (-) tremors, (-) weakness, (-) dizziness, (-) slurred speech, (-) vertigo, (-) other documentation Physical Exam General Appearance: (+) no apparent distress Orientation: (+) alert, (+) oriented x 3 Head/Face Trauma: No Eye: bilateral eye normal inspection, bilateral eye PERRL, bilateral eye EOMI Ear, Nose, Throat: (+) hearing grossly normal, (+) normal ENT inspection Neck: (+) normal inspection, (+) supple, (+) no JVD Respiratory: (+) chest non-tender, (+) lungs clear, (+) well ventilated Heart: (+) regular, (+) no gallop Vascular: (+) no edema, (+) normal peripheral pulse Gastrointestinal: (+) soft, (+) non-tender, (+) bowel sound present Extremities: (+) normal range of motion Results Laboratory and Microbiology Lab and Micro Result Laboratory Tests Test 12/24/24 23:54 White Blood Count 7.0 K/uL (4.8-10.8) Red Blood Count 4.13 MIL/uL (4.50-6.20) L Hemoglobin 14.0 g/dL (14.0-18.0) Hematocrit 42.3 % (42-54) Mean Corpuscular Volume 102.4 fL (79-99) H Mean Corpuscular Hemoglobin 33.9 pg (27.0-33.0) H Mean Corpuscular Hemoglobin Concent 33.1 g/dL (32.0-36.0) Red Cell Distribution Width 13.9 % (11.0-15.5) Platelet Count 232 K/uL (130-400) Mean Platelet Volume 9.7 fL (7.5-10.5) Immature Granulocyte % (Auto) 0.4 % (0-1) Neutrophils (%) (Auto) 78.8 % (40.0-77.0) H Lymphocytes (%) (Auto) 12.8 % (21.0-51.0) L Monocytes (%) (Auto) 7.4 % (3.0-13.0) Eosinophils (%) (Auto) 0.3 % (0.0-8.0) Basophils (%) (Auto) 0.3 % (0.0-5.0) Neutrophils # (Auto) 5.5 K/uL (1.8-7.7) Lymphocytes # (Auto) 0.9 K/uL (1.0-4.8) L Monocytes # (Auto) 0.5 K/uL (0.1-1.0) Eosinophils # (Auto) 0.02 K/uL (0.00-0.70) Basophils # (Auto) 0.02 K/uL (0.00-0.20) Absolute Immature Granulocyte (auto 0.03 K/uL (0-1) Nucleated Red Blood Cells 0.0 % (0.0-0.19) Sodium Level 138 mmol/L (136-145) Potassium Level 5.0 mmol/L (3.5-5.1) Chloride Level 105 mmol/L (101-111) Carbon Dioxide Level 26 mmol/L (21-32) Blood Urea Nitrogen 25 mg/dL (7-18) H Creatinine 1.2 mg/dL (0.5-1.3) Glomerular Filtration Rate Calc 64 mL/min (>90) Random Glucose 169 mg/dL (70-105) H Total Calcium 9.5 mg/dL (8.5-10.1) Troponin I High Sensitivity 15 ng/L (4-75) Procalcitonin < 0.05 ng/mL (0.05-0.5) L MDM Given the patient's cardiac history I have ordered an EKG as well as cardiac labs. In addition I have ordered a chemistry panel and a CBC. The patient is in the lobby but once I can get into an examination room I will look at his skin blister. Patient's chest x-ray and lab studies are all normal. I examined the patient's blister and it appears to be an excoriation that is in the process of healing. In it is not the kind of wound I would expect from an injection site. I provided the patient with some Band-Aids. I talked to the patient about his chest pain and he said no it is not my chest it is my belly it is right here and he points to his xiphoid process. And it goes across my abdomen here and he points to the crease between his abdominal fat and his ribcage. He tells me that he has been diagnosed with shingles but he never has a rash there. He tells me he has been treated with Benadryl but it has not helped. The pain still is intermittent and he describes it as burning. He also says he has had CT scans and that they do not show the cause of the pain. He is having an episode right now I will give him a GI cocktail. Patient has received his GI cocktail and he says it does not change his symptoms. He describes to me a friend's son who had �internal herpes� and wonders if that is what he has. He describes the pain again as sharp and it really is along his subcostal margin bilaterally. And he scratches it but it hurts and itches on the inside. I can not explain his symptoms. They do not match the symptoms you would expect from costochondritis or Tietze syndrome. The way he describes it and mimics his scratching I can not help but think it must involve his ribcage, particularly the floating ribs and the cartilage associated with them. I reassured him that he does not have a cardiac or pulmonary problem. He should go see his primary care physician to try and figure out the cause of his symptoms. They are not emergent. ED Course Orders Procedure Category Date Status Time 12 Lead Ekg Tracing- EKG 12/24/24 Logged Technical 22:04 Cbc With Differential LAB 12/24/24 Complete 23:37 Basic Metabolic Panel LAB 12/24/24 Complete 23:37 Procalcitonin LAB 12/24/24 Complete 23:37 Chest 1vw RAD 12/24/24 Taken 23:37 Troponin I High LAB 12/24/24 Complete Sensitivity 23:37 Lidocaine Hcl 2% PHA 12/25/24 Complete Viscous (Lidocaine Hcl 01:30 Mag/Alum/Simeth 30ml PHA 12/25/24 Complete (Maalox Plus 30ml) 01:30 Dicyclomine Hcl PHA 12/25/24 Complete (Bentyl 10mg/5ml 01:30 Current Medications Medications (Trade) Dose Ordered Sig/Isabella Route PRN Reason Start Time Stop Time Status Last Admin Dose Admin Al Hydroxide/Mg Hydroxide (MAALox PLUS 30ML) 30 ml ONCE ONCE PO 12/25/24 01:30 12/25/24 01:31 DC 12/25/24 01:28 Dicyclomine HCl (Bentyl 10mg/5ml Syrup) 10 mg ONCE ONCE PO 12/25/24 01:30 12/25/24 01:31 DC 12/25/24 01:28 Lidocaine HCl (Lidocaine HCl 2% Viscous) 10 ml ONCE ONCE PO 12/25/24 01:30 12/25/24 01:31 DC 12/25/24 01:28 Vital Signs Date Time Temp Pulse Resp B/P (MAP) Pulse Ox O2 Delivery O2 Flow Rate FiO2 12/24/24 21:59 96.6 80 20 163/65 98 Room Air DX & DISP Disposition: Discharge Departure Impression: Primary Impression: Rib pain Condition: Stable Additional Instructions: Please follow-up with your primary care physician to sort out the cause of this pain. I realize that it is incapacitating and sometimes wakes her up at night but I do not feel it is a medical emergency and with a are broad crude testing here in the emergency room we are unable to figure out the cause of the pain. CT scans have been negative chest x-rays have been negative. Referrals: JOHN STROUD MD (PCP) TRENA MANCIA MD December 24, 2024 23:27
[2024-12-25 00:11] LABS: BASOPHILS # (AUTO) 0.02 K/uL (0.00-0.20); BASOPHILS % (AUTO) 0.3 % (0.0-5.0); EOSINOPHILS # (AUTO) 0.02 K/uL (0.00-0.70); EOSINOPHILS % (AUTO) 0.3 % (0.0-8.0); HEMATOCRIT 42.3 % (42-54); IMMATURE GRANULOCYTE ABSOLUTE 0.03 K/uL (0-1); LYMPHOCYTES # (AUTO) 0.9 K/uL (1.0-4.8); LYMPHOCYTES % (AUTO) 12.8 % (21.0-51.0); MEAN CORPUSCULAR HEMOGLOBIN 33.9 pg (27.0-33.0); MEAN CORPUSCULAR HGB CONC 33.1 g/dL (32.0-36.0); MEAN CORPUSCULAR VOLUME 102.4 fL (79-99); MONOCYTES # (AUTO) 0.5 K/uL (0.1-1.0); MONOCYTES % (AUTO) 7.4 % (3.0-13.0); NEUTROPHILS # (AUTO) 5.5 K/uL (1.8-7.7); NEUTROPHILS % (AUTO) 78.8 % (40.0-77.0); PLATELET COUNT (AUTO) 232 K/uL (130-400); RED BLOOD CELL COUNT(AUTO) 4.13 MIL/uL (4.50-6.20); RED CELL DISTRIBUTION WIDTH 13.9 % (11.0-15.5)
[2024-12-25 01:03] LABS: CREATININE 1.2 mg/dL (0.5-1.3)
[2024-12-25] MEDS: DICYCLOMINE HCL 10 MG/5 ML ML PO ONE (01:28)
[2024-12-25] MEDS: LIDOCAINE HCL 2% VISCOUS 15 ML UDCUP PO ONE (01:28)
[2024-12-25] MEDS: MAG/ALUM/SIMETH 30 ML UDCUP PO ONE (01:28)
[2024-12-25 01:59] VITALS: BP 160/72; PULSE 74; RESP 18; TEMP 98.2; O2SAT 98
--- NOTE | 2024-12-25 08:49 | EKG ---
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
--- NOTE | 2024-12-25 09:07 | HMCIMG ---
Exam Type: CHEST 1VW Clinical Information: itching inside chest Comparison: None Findings: The lungs are clear of infiltrates. The heart is normal in size. The bony and soft tissue structures of the chest are unremarkable. Impression: Clear lungs.
== END 2024-12-25 02:23 | disposition home or self-care (01) ==
LOC: EDH 21:55
DX: R07.81 Pleurodynia (principal); E11.51 Type 2 diabetes mellitus with diabetic peripheral angiopathy without gangrene; E78.00 Pure hypercholesterolemia, unspecified; I10 Essential (primary) hypertension; I25.10 Atherosclerotic heart disease of native coronary artery without angina pectoris; J44.9 Chronic obstructive pulmonary disease, unspecified; M19.90 Unspecified osteoarthritis, unspecified site; Z79.02 Long term (current) use of antithrombotics/antiplatelets; Z79.4 Long term (current) use of insulin; Z79.52 Long term (current) use of systemic steroids; Z79.84 Long term (current) use of oral hypoglycemic drugs; Z79.899 Other long term (current) drug therapy; Z88.6 Allergy status to analgesic agent
CPT/HCPCS: 36415; 71045; 80048; 84145; 84484; 85025; 93005; 99283; 99285

== ENCOUNTER 2025-03-14 19:40 | Emergency (ER) | payer MEDICARE, MEDICAID ==
[~2025-03-14] VITALS: Ht 162.6 cm; Wt 88.9 kg
--- NOTE | 2025-03-14 19:46 | ERN ---
ED Note History of Present Illness Stated Complaint: RT 3RD FINGER INJURY Chief Complaint: Finger Injury Time Seen by MD: 19:45 Allergies: Coded Allergies: ibuprofen (Unverified Allergy, Unknown, 01/27/19) metformin (Unverified Allergy, Unknown, 09/08/19) Home Meds Active Scripts Diphenhydramine HCl (Benadryl) 50 Mg Cap, 50 MG PO Q6H for itching/rash, #20 CAP 0 Refills Prov:VALERIA HELM [employer]ICE COMMISSIONER 10/03/24 Prednisone (Prednisone) 5 Mg Tablet, 1 TAB PO DAILY for 7 Days, #7 TAB 0 Refills Prov:EUNICE REDDY MD 10/02/24 Clopidogrel Bisulfate (Clopidogrel) 75 Mg Tablet, 75 MG PO DAILY, #30 TAB 1 Refill Prov:PERLA FRYE TEST FIXTURE DESIGNER 07/26/22 Reported Medications Doxazosin Mesylate (Doxazosin Mesylate) 8 Mg Tablet, 1 TAB PO HS for 30 Days, #30 TAB 0 Refills 25 Celecoxib (Celecoxib) 200 Mg Capsule, 1 CAP PO BID for pain for 30 Days, #30 CAP 0 Refills /25 Eltrombopag Olamine (Promacta) 50 Mg Tablet, 1 TAB PO DAILY for 30 Days, #30 TAB 0 Refills //25 Sennosides/Docusate Sodium (Senexon-S 50-8.6 mg Tablet) 8.6 Mg-50 Mg Tablet, 2 EACH PO DAILY, TAB /25 Gabapentin (Gabapentin) 100 Mg Capsule, 1 CAP PO DAILY for 30 Days, #90 CAP 0 Refills 25 Duloxetine HCl (Duloxetine HCl) 20 Mg Capsule.dr, 1 CAP PO DAILY for 30 Days, #30 CAP 0 Refills /2/25 Ropinirole HCl (Ropinirole HCl) 2 Mg Tablet, 1 TAB PO HS for 30 Days, #30 TAB 0 Refills 2/2/25 Pantoprazole Sodium (Pantoprazole Sodium) 40 Mg Tablet.dr, 1 TAB PO DAILY for 30 Days, #30 TAB 0 Refills /2/25 Furosemide (Furosemide) 20 Mg Tablet, 1 TAB PO DAILY for 30 Days, #30 TAB 0 Refills /2/25 Albuterol Sulfate (Ventolin Hfa) 90 Mcg Hfa.aer.ad, 2 PUFF IH Q4HPRN PRN for wheezing for 30 Days, #18 GM 0 Refills 09/21/24 Fluticasone/Umeclidin/Vilanter (Trelegy Ellipta 100-62.5-25) 100-62.5 Blst.w.dev, 1 PUFF IH DAILY for 30 Days, #1 EACH 0 Refills 09/21/24 Cetirizine HCl (Cetirizine HCl) 5 Mg Tablet, 1 TAB PO DAILY for allergy symptoms for 30 Days, #30 TAB 0 Refills 09/21/24 Insulin Aspart (Niacinamide) (Fiasp 100 Unit/ml Flextouch) 100 Unit/1 Ml Insuln.pen, 100 UNIT SQ TIDAC, SYRINGE 08/18/22 Insulin Degludec (Tresiba Flextouch U-100) 100 Unit/1 Ml Insuln.pen, 40 UNIT SQ DAILYBKFST, SYRINGE 08/18/22 Empagliflozin (Jardiance) 25 Mg Tablet, 25 MG PO AM, TAB 07/24/22 Glipizide (Glipizide) 5 Mg Tablet, 5 MG PO BID, TAB 07/24/22 Past Medical History Past Medical History: Arthritis, Diabetes-Type II, Hypertension, Other Additional Past Medical Hx: NEUROPATHY Surgical History: Unknown Surgical History Other: LEFT FOOT SX Family History: Negative Social History: Negative, Lives with family, Other Review of System Dictation Constitutional: Negative for fever,chills, and weight loss Eyes: Negative for injury, pain,redness, and discharge ENT: Negative for injury,pain or swelling Cardiovascular: Negative for chest pain, palpitations, and edema Respiratory: Negative for shortness of breath, cough, and wheezing, Abdomen/GI: Negative for abdominal pain, nausea, vomiting, diarrhea, and constipation Back: Negative for injury and pain : Negative for injury, bleeding and discharge MS/Extremity: Negative for injury and deformity Skin: Negative for rash, and discoloration Neuro: Negative for headache, weakness, numbness, tingling, and seizure Psych: Negative for suicide ideation, homicidal ideation, and hallucinations Initial Vital Sign VS Vital Signs Date Time Temp Pulse Resp B/P (MAP) Pulse Ox O2 Delivery O2 Flow Rate FiO2 03/14/25 19:41 98.1 83 18 135/51 97 Room Air 03/14/25 19:55 0 21 Physical Exam Dictation General: awake, alert, NAD Head/Face: Normocephalic, atraumatic Eyes: PERRL, EOMI, vision at baseline ENT: oral cavity clear, TMs clear, no signs of infection Neck: Trachea midline, supple, no nuchal rigidity Cardiovascular: RRR, normal S1/S2, No MRGs, no JVD Respiratory: CTAB, no respiratory distress, No rales or wheezes Abdomen: Soft, non-tender, non-distended, normal bowel sounds, no guarding or rebound. Skin: Warm, dry, normal turgor, no rash MS/Extremity: Pulses equal, no cyanosis, neurovascular intact, FROM Neuro: COAx4, GCS 15, strength 5/5, CN 2-12 intact, normal cerebellar exam, normal gait, Psych: Normal behavior, mood, and affect normal ED Course ED Course Orders Procedure Category Date Status Time Finger(S) 2+Vws Rt RAD 03/14/25 Taken 19:51 Ondansetron 4mg PHA 03/14/25 In Process Tablet (Zofran 4mg 20:00 Hydrocodone/Apap PHA 03/14/25 In Process 5/325 ([place] 5/325mg) 20:00 Current Medications Medications (Trade) Dose Ordered Sig/Isabella Route PRN Reason Start Time Stop Time Status Last Admin Dose Admin Acetaminophen/ Hydrocodone Bitart (NORco 5/325MG) 1 tab ONCE PO 03/14/25 20:00 03/14/25 23:59 03/14/25 20:01 Ondansetron HCl (zoFRAN 4MG TABLET) 4 mg ONCE PO 03/14/25 20:00 03/14/25 23:59 03/14/25 20:01 Vital Signs Date Time Temp Pulse Resp B/P (MAP) Pulse Ox O2 Delivery O2 Flow Rate FiO2 03/14/25 19:55 98.1 80 16 138/52 96 Room Air* 0 21 03/14/25 19:41 98.1 83 18 135/51 97 Room Air Medical Decision Making MDM Patient has a broken finger. But that has closed close fracture good capillary refill good range of motion strength sensation stable for outpatient management and follow up with PCP and ortho MDM: Differential diagnosis: Rationale: Tests considered and ordered secondary to shared decision making include: Previous outside records reviewed: Old ER visits. Risk of complication and/or morbidity or mortality of patient management: None Medications-Per medication reconciliation Need for hospitalization: Patient does not meet criteria for hospitalization. Need for emergency major/minor surgery: No There are no social concerns with this patient. Prescription drug management Prescriptions will include symptomatic care Patient's prior external medical records from other ER visits were reviewed by me as indicated. Prior testing and results from previous visits were reviewed. Prior tests were taken into account with medical decision making and resource utilization, independent historian/historians were used to obtain complete medical history. I independently interpreted the test that were performed, results were reviewed by me and considered findings on radiology if ordered. Medical management and examination interpretation discussions were had by me with other qualified healthcare professionals as indicated for the patient's care. DX & DISP Disposition: Discharge Departure Impression: Primary Impression: Broken finger Condition: Stable Referrals: JOHN STROUD MD (PCP) AMIRA DIEGO MD Mar 14, 2025 19:46
[2025-03-14 19:55] VITALS: BP 138/52; PULSE 80; RESP 16; TEMP 98.1; O2SAT 96
[2025-03-14] MEDS: HYDROcodone/APAP 5/325 1 TAB TABLET PO SCH (20:01)
--- NOTE | 2025-03-14 20:21 | HMCIMG ---
EXAM: CR right Finger, 3 View. CLINICAL HISTORY: third right middle finger injury COMPARISON: None provided. FINDINGS: BONES: Mildly displaced, comminuted fracture at the base of the right middle finger. JOINTS: No dislocation. The joint spaces are normal. SOFT TISSUES: Third finger soft tissue edema. IMPRESSION: 1. Mildly displaced, comminuted fracture at the base of the right middle finger with soft tissue edema. /[place]
== END 2025-03-14 20:18 | disposition home or self-care (01) ==
LOC: EDH 19:40
DX: S62.602A Fracture of unspecified phalanx of right middle finger, initial encounter for closed fracture (principal); E11.9 Type 2 diabetes mellitus without complications; I10 Essential (primary) hypertension; M19.90 Unspecified osteoarthritis, unspecified site; Z79.02 Long term (current) use of antithrombotics/antiplatelets; Z79.4 Long term (current) use of insulin; Z79.52 Long term (current) use of systemic steroids; Z79.84 Long term (current) use of oral hypoglycemic drugs; Z79.899 Other long term (current) drug therapy; Z88.6 Allergy status to analgesic agent; W23.2XXA Caught, crushed, jammed or pinched between a moving and stationary object, initial encounter; Y93.89 Activity, other specified; Y92.89 Other specified places as the place of occurrence of the external cause; Y99.8 Other external cause status
CPT/HCPCS: 99283; 73140; Q0162

== ENCOUNTER 2025-06-21 13:13 | Emergency (ER) | payer MEDICARE, MEDICAID ==
[~2025-06-21] VITALS: Ht 162.6 cm; Wt 84.4 kg
[~2025-06-21 13:13] MED LIST changes: -DIPH50 PO; +DIPH50CA38 PO
[2025-06-21 14:30] VITALS: BP 140/61; PULSE 66; RESP 20; TEMP 98.1; O2SAT 98
--- NOTE | 2025-06-21 14:55 | HMCIMG ---
EXAM: CT Left Hip Without IV Contrast. CLINICAL HISTORY: Left hip pain. TECHNIQUE: Axial images were acquired through the left hip without intravenous contrast. Reformatted coronal and sagittal images were reviewed. COMPARISON: None provided. FINDINGS: BONES: No acute fracture or aggressive osseous lesion identified. Visualized portions of the pelvis and proximal femur show mild cortical irregularity consistent with degenerative changes. JOINTS: No dislocation. Mild degenerative changes of the left hip joint with early osteoarthrosis. Visualized portions of the lower lumbar spine demonstrate degenerative lumbar spondylosis with facet joint degeneration and osteoarthrosis, associated with neural foraminal stenosis at the L5???S1 level. SOFT TISSUES: No soft tissue swelling, hematoma, or collection. No radiopaque foreign body identified. IMPRESSION: * Degenerative lumbar spondylosis with facet joint degeneration and osteoarthrosis, associated with neural foraminal stenosis at L5???S1 level. * Mild degenerative changes of the left hip joint. * No acute fracture or dislocation. /[place]
--- NOTE | 2025-06-21 14:58 | ERN ---
General Chief Complaint: Low Back Pain/Injury Stated Complaint: BACK PAIN Time Seen by MD: 13:16 Source: patient History of Present Illness Initial Comments PATIENT IS A 75-YEAR-OLD GENTLEMAN COMING IN COMPLAINING OF LEFT HIP PAIN. PER PATIENT HE WAS AMBULATING STRETCHED ALMOST FELL DOWN BUT STRETCHED IN HIS LEFT HIP AREA. PATIENT DOES HAS A HISTORY OF CHRONIC PAIN IN THE LEFT HIP. Allergies: Coded Allergies: ibuprofen (Unverified Allergy, Unknown, 01/27/19) metformin (Unverified Allergy, Unknown, 09/08/19) Home Meds Active Scripts Diphenhydramine HCl (Benadryl) 50 Mg Cap, 50 MG PO Q6H for itching/rash, #20 CAP 0 Refills Prov:VALERIA HELM 10/03/24 Prednisone (Prednisone) 5 Mg Tablet, 1 TAB PO DAILY for 7 Days, #7 TAB 0 Refills Prov:EUNICE REDDY MD 10/02/24 Clopidogrel Bisulfate (Clopidogrel) 75 Mg Tablet, 75 MG PO DAILY, #30 TAB 1 Refill Prov:PERLA FRYE 07/26/22 Reported Medications Doxazosin Mesylate (Doxazosin Mesylate) 8 Mg Tablet, 1 TAB PO HS for 30 Days, #30 TAB 0 Refills 25 Celecoxib (Celecoxib) 200 Mg Capsule, 1 CAP PO BID for pain for 30 Days, #30 CAP 0 Refills /25 Eltrombopag Olamine (Promacta) 50 Mg Tablet, 1 TAB PO DAILY for 30 Days, #30 TAB 0 Refills /25 Sennosides/Docusate Sodium (Senexon-S 50-8.6 mg Tablet) 8.6 Mg-50 Mg Tablet, 2 EACH PO DAILY, TAB 25 Gabapentin (Gabapentin) 100 Mg Capsule, 1 CAP PO DAILY for 30 Days, #90 CAP 0 Refills 25 Duloxetine HCl (Duloxetine HCl) 20 Mg Capsule.dr, 1 CAP PO DAILY for 30 Days, #30 CAP 0 Refills /25 Ropinirole HCl (Ropinirole HCl) 2 Mg Tablet, 1 TAB PO HS for 30 Days, #30 TAB 0 Refills /25 Pantoprazole Sodium (Pantoprazole Sodium) 40 Mg Tablet.dr, 1 TAB PO DAILY for 30 Days, #30 TAB 0 Refills 2/2/25 Furosemide (Furosemide) 20 Mg Tablet, 1 TAB PO DAILY for 30 Days, #30 TAB 0 Refills /25 Albuterol Sulfate (Ventolin Hfa) 90 Mcg Hfa.aer.ad, 2 PUFF IH Q4HPRN PRN for wheezing for 30 Days, #18 GM 0 Refills /10/14 Fluticasone/Umeclidin/Vilanter (Trelegy Ellipta 100-62.5-25) 100-62.5 Blst.w.dev, 1 PUFF IH DAILY for 30 Days, #1 EACH 0 Refills 09/21/24 Cetirizine HCl (Cetirizine HCl) 5 Mg Tablet, 1 TAB PO DAILY for allergy symptoms for 30 Days, #30 TAB 0 Refills 09/21/24 Insulin Aspart (Niacinamide) (Fiasp 100 Unit/ml Flextouch) 100 Unit/1 Ml Insuln.pen, 100 UNIT SQ TIDAC, SYRINGE 08/18/22 Insulin Degludec (Tresiba Flextouch U-100) 100 Unit/1 Ml Insuln.pen, 40 UNIT SQ DAILYBKFST, SYRINGE 08/18/22 Empagliflozin (Jardiance) 25 Mg Tablet, 25 MG PO AM, TAB 07/24/22 Glipizide (Glipizide) 5 Mg Tablet, 5 MG PO BID, TAB 07/24/22 Past Medical History Past Medical History: COPD, Diabetes-Type II Medical History Other: NEUROPATHY Past Surgical History: Other Surgical History Other: LEFT FT SX Family History Family History: Negative Social History Social History: Negative, Lives with family, Other ROS Dictation CONSTITUTIONAL: NO CHILLS, NO FEVER, NO WEAKNESS, NO DIAPHORESIS, NO MALAISE. HEAD/FACE: NO SIGNS OF TRAUMA. EENT: NO EYE PAIN, NO BLURRED VISION, NO TEARING, NO DOUBLE VISION, NO EAR PAIN, NO EAR DISCHARGE, NO NOSE PAIN, NO NASAL CONGESTION, NO THROAT PAIN, NO THROAT SWELLING, NO MOUTH PAIN. RESPIRATORY: NO COUGH, NO ORTHOPNEA, NO SOB, NO STRIDOR, NO WHEEZING. CARDIOVASCULAR: NO CHEST PAIN, NO EDEMA, NO PALPITATIONS, NO SYNCOPE. GASTROINTESTINAL/ABDOMINAL: NO ABDOMINAL PAIN, NO CONSTIPATION, NO DIARRHEA, NO NAUSEA, NO VOMITING. GENITOURINARY: NO ABNORMAL DISCHARGE, NO DYSURIA, NO FREQUENT URINATION, NO HEMATURIA. NO COMPLAINTS OF PAIN IN THE GENITALS. MUSCULOSKELETAL: NO BACK PAIN, NO GOUT, JOINT PAIN, JOINT SWELLING, MUSCLE PAIN, NO MUSCLE STIFFNESS, NO NECK PAIN. INTEGUMENTARY: NO CHANGE IN COLOR, NO CHANGE IN HAIR/NAILS, NO DRYNESS, NO L ESION, NO LUMPS, NO RASH. NEUROLOGICAL/PSYCH: NO ANXIETY, NOT DEPRESSED, NO EMOTIONAL PROBLEM, NO HEADACHE, NO NUMBNESS, NO PRE-EXISTING DEFICIT, NO HISTORY OF SEIZURES, NO TREMORS, NO WEAKNESS. HEMATOLOGIC/LYMPHATIC: NOT ANEMIC, NO HISTORY OF BLOOD CLOTS, NO APPARENT BLEEDING, NO BRUISING, GLANDS NOT SWOLLEN. ALL SYSTEMS NEGATIVE, EXCEPT NOTED. Physical Exam Physical Exam Dictation VITAL SIGNS: REVIEWED. GENERAL APPEARANCE: ALERT, ORIENTED X3, NO ACUTE DISTRESS, OBESE. HEAD AND FACE: NON-TRAUMATIC. EYES: PERRL, PINK CONJUNCTIVAS, EYELID NO TRAUMA, ANTERIOR CHAMBER CLEAR. EARS: PINNAS INTACT AND NO SIGNS OF TRAUMA OR ERYTHEMA. EAR CANALS CLEAR AND NO DISCHARGE. TMS NO ERYTHEMA. NOSE: NO DISCHARGE, NO BLEEDING. OROPHARYNX: MOUTH NORMAL, TEETH NO CARIES, TONGUE PINK. PHARYNX CLEAR, NO ERYTHEMA. TONSILS NO EXUDATES, NO ABSCESSES NOTED. MUCOUS MEMBRANE MOIST. NECK: SUPPLE, NON-TENDER, NO THYROMEGALY, NO MASSES, NO JVD, NO BRUITS. BREAST: DEFERRED. CHEST: NO TENDERNESS, NO CREPITUS, NO PARADOXICAL MOVEMENT, NO RETRACTIONS. LUNGS: CLEAR, WELL-VENTILATED, SYMMETRIC, NO RALES, NO WHEEZING, NO RHONCHI, NO STRIDOR, GOOD BREATH SOUNDS BILATERALLY. HEART: REGULAR RATE, REGULAR RHYTHM, NO MURMUR, NO GALLOPS. VASCULAR: NO PERIPHERAL EDEMA. ABDOMEN: SOFT, POSITIVE BOWEL SOUNDS, NONDISTENDED, NO GUARDING, NONTENDER, NO REBOUND, NO MASSES NO HEPATOMEGALY, NO SPLENOMEGALY, NO MOSCOSO'S SIGN, NO HERNIAS. RECTAL: DEFERRED. GENITAL: DEFERRED. NEUROLOGICAL: NORMAL SPEECH, GROSS MOTOR FUNCTION INTACT, GROSS SENSORY FUNCTION INTACT. MUSCULOSKELETAL: NECK NONTENDER, FULL RANGE OF MOTION, BACK NONTENDER, FULL RANGE OF MOTION. EXTREMITIES: NONTENDER, FULL RANGE OF MOTION. LEFT KNEE PAIN ON PALPATION SKIN: COLOR PINK, DRY, NO TURGOR, NO RASH, NO LACERATIONS, NO ABRASIONS, NO CONTUSIONS. LYMPHATICS: DEFERRED. Results Laboratory and Microbiology Labs Reviewed?: Yes EKG/XRAY/US/CT/MRI CT Scan Comment IMAGING REPORT Signed PATIENT: TY STACK MR#: [id number] : 1950 SEX: M AGE: 75 LOCATION: [facility] ORDER 30 STATUS: REG ER REPORT#: [id number] SERVICE 29 REASON: HIP LEFT ORDERING PHYSICIAN: EUNICE REDDY MD PROCEDURE: LOW EXT WO - CT LOW EXT W/O CONTRAST EXAM: CT Left Hip Without IV Contrast. CLINICAL HISTORY: Left hip pain. TECHNIQUE: Axial images were acquired through the left hip without intravenous contrast. Reformatted coronal and sagittal images were reviewed. COMPARISON: None provided. FINDINGS: BONES: No acute fracture or aggressive osseous lesion identified. Visualized portions of the pelvis and proximal femur show mild cortical irregularity consistent with degenerative changes. JOINTS: No dislocation. Mild degenerative changes of the left hip joint with early osteoarthrosis. Visualized portions of the lower lumbar spine demonstrate degenerative lumbar spondylosis with facet joint degeneration and osteoarthrosis, associated with neural foraminal stenosis at the L5???S1 level. SOFT TISSUES: No soft tissue swelling, hematoma, or collection. No radiopaque foreign body identified. IMPRESSION: * Degenerative lumbar spondylosis with facet joint degeneration and osteoarthrosis, associated with neural foraminal stenosis at L5???S1 level. * Mild degenerative changes of the left hip joint. * No acute fracture or dislocation. /[place] DICTATED BY: ALICIA MURRELL MD DATE: 06/21/251553 ELECTRONICALLY SIGNED BY: ALICIA MURRELL MD DATE: 06/21/251553 [facility] MDM: DIFFERENTIAL DIAGNOSIS: LEFT HIP PAIN, OSTEOARTHRITIS OF THE HIP RATIONALE: TESTS CONSIDERED AND ORDERED SECONDARY TO SHARED DECISION MAKING INCLUDE: PREVIOUS OUTSIDE RECORDS REVIEWED: OLD ER VISITS. RISK OF COMPLICATION AND/OR MORBIDITY OR MORTALITY OF PATIENT MANAGEMENT: NONE MEDICATIONS-PER MEDICATION RECONCILIATION NEED FOR HOSPITALIZATION: PATIENT DOES NOT MEET CRITERIA FOR HOSPITALIZATION. NEED FOR EMERGENCY MAJOR/MINOR SURGERY: NO THERE ARE NO SOCIAL CONCERNS WITH THIS PATIENT. PATIENT IS A COMING IN COMPLAINING OF LEFT HIP PAIN. PATIENT STATES THAT HE HAS A EXTENSIVE HISTORY OF HIP PAIN CT WAS PERFORMED NO ACUTE FINDINGS WERE PRESENT CHRONIC CHANGES ARE PRESENT. PATIENT WILL BE DISCHARGED IN STABLE CONDITION WITH A DIAGNOSIS OF OSTEOARTHRITIS OF THE LEFT HIP. DID ADVISED HIM APPROPRIATE FOLLOW UP WITH PCP IN 1-2 DAYS. ED Course Orders Procedure Category Date Status Time Ct Low Ext W/O CT 06/21/25 Resulted Contrast 13:30 Orphenadrine Citrate PHA 06/21/25 Verified (Norflex) 15:30 Vital Signs Date Time Temp Pulse Resp B/P (MAP) Pulse Ox O2 Delivery O2 Flow Rate FiO2 06/21/25 14:30 98.1 66 20 140/61 98 Room Air* 0 21 06/21/25 13:22 98.1 73 20 132/52 100 Room Air* 0 21 06/21/25 13:15 98.1 73 20 132/52 100 Room Air DX & DISP Disposition: Discharge Departure Impression: Primary Impression: Osteoarthritis of left hip Condition: Stable Scripts Gabapentin (Gabapentin) 100 Mg Capsule 1 CAP PO BID for 5 Days, #10 CAP 0 Refills Prov: EUNICE REDDY MD 06/21/25 Additional Instructions: FOLLOW-UP WITH PRIMARY CARE PROVIDER IN 1 TO 2 DAYS. TAKE MEDICATIONS DIRECTED HERE IN THE EMERGENCY ROOM. OKAY TO CONTINUE HOME MEDICATIONS UNLESS OTHERWISE DISCUSSED DURING YOUR VISIT IN THE EMERGENCY ROOM TODAY. RETURN TO YOUR NEAREST EMERGENCY ROOM IF SYMPTOMS WORSEN OR IF THERE IS NO IMPROVEMENT. CALL 911 IF YOU NEED IMMEDIATE ASSISTANCE. TAKE TYLENOL [id number] NEEDED AND IF NO CONTRAINDICATIONS ARE PRESENT. INCREASE ORAL HYDRATION. A WOUND CULTURE OR URINE CULTURE WAS ORDERED HERE IN THE EMERGENCY ROOM DEPARTMENT PLEASE FOLLOW-UP WITH PRIMARY CARE PROVIDER AND ADVISE THEM TO GET REPORTS FROM OUR FACILITY. IF YOU HAD ANY YADIRA WRAP/SPLINTS THAT WERE APPLIED HERE, PLEASE DO NOT REMOVE THEM UNTIL YOU SEE YOUR PRIMARY CARE OR SPECIALTY. REFERRALS: Referrals: JOHN STROUD MD (PCP) SAULO MCCALLUM DO Time of Disposition: 15:07 EUNICE REDDY MD Jun 21, 2025 14:58
[2025-06-21] MEDS ORDERED: GABA-529 PO (15:08)
[2025-06-21] MEDS: ORPHENADRINE 60MG/2ML IM ONE (15:16)
== END 2025-06-21 15:35 | disposition home or self-care (01) ==
LOC: EDH 13:13
DX: M16.12 Unilateral primary osteoarthritis, left hip (principal); J44.9 Chronic obstructive pulmonary disease, unspecified; E11.40 Type 2 diabetes mellitus with diabetic neuropathy, unspecified; Z88.6 Allergy status to analgesic agent; Z88.8 Allergy status to other drugs, medicaments and biological substances; Z79.02 Long term (current) use of antithrombotics/antiplatelets; Z79.4 Long term (current) use of insulin; Z79.52 Long term (current) use of systemic steroids; Z79.84 Long term (current) use of oral hypoglycemic drugs; Z79.899 Other long term (current) drug therapy
CPT/HCPCS: 73700; 96372; 99285; J2360

== ENCOUNTER 2025-07-16 18:56 | Emergency (ER) | payer MEDICARE, MEDICAID ==
[~2025-07-16] VITALS: Ht 162.6 cm; Wt 87.1 kg
--- NOTE | 2025-07-16 19:09 | ERN ---
ED Note History of Present Illness Stated Complaint: LEFT FOOT WOUND Chief Complaint: Wound Check Time Seen by MD: 19:01 Dictation: PATIENT IS A 75-YEAR-OLD MALE WITH COMPLAINTS OF A PAINFUL DIABETIC ULCER TO THE PLANTAR ASPECT OF HIS LEFT FOOT HE HAS HAD FOR SEVERAL WEEKS. NO FEVER NO CHILLS NO NAUSEA VOMITING STATES HIS DIABETES HAS BEEN CONTROLLED WITH BLOOD SUGARS IN THE 120S 130S. HE HAS A AN APPOINTMENT WITH DR. MAURA PAPPAS, HOWEVER CAME IN TODAY BECAUSE HE SAW PUS COMING OUT OF THE WOUND. Allergies: Coded Allergies: ibuprofen (Unverified Allergy, Unknown, 01/27/19) metformin (Unverified Allergy, Unknown, 09/08/19) Home Meds Active Scripts Gabapentin (Gabapentin) 100 Mg Capsule, 1 CAP PO BID for 5 Days, #10 CAP 0 Refills Prov:EUNICE REDDY MD 06/21/25 Diphenhydramine HCl (Benadryl) 50 Mg Cap, 50 MG PO Q6H for itching/rash, #20 CAP 0 Refills Prov:VALERIA HELM [facility] 10/03/24 Prednisone (Prednisone) 5 Mg Tablet, 1 TAB PO DAILY for 7 Days, #7 TAB 0 Refills Prov:EUNICE REDDY MD 10/02/24 Clopidogrel Bisulfate (Clopidogrel) 75 Mg Tablet, 75 MG PO DAILY, #30 TAB 1 Refill Prov:PERLA FRYE [facility] 07/26/22 Reported Medications Doxazosin Mesylate (Doxazosin Mesylate) 8 Mg Tablet, 1 TAB PO HS for 30 Days, #30 TAB 0 Refills 09/21/24 Celecoxib (Celecoxib) 200 Mg Capsule, 1 CAP PO BID for pain for 30 Days, #30 CAP 0 Refills 25 Eltrombopag Olamine (Promacta) 50 Mg Tablet, 1 TAB PO DAILY for 30 Days, #30 TAB 0 Refills 25 Sennosides/Docusate Sodium (Senexon-S 50-8.6 mg Tablet) 8.6 Mg-50 Mg Tablet, 2 EACH PO DAILY, TAB 09/21/24 Gabapentin (Gabapentin) 100 Mg Capsule, 1 CAP PO DAILY for 30 Days, #90 CAP 0 Refills 09/21/24 Duloxetine HCl (Duloxetine HCl) 20 Mg Capsule.dr, 1 CAP PO DAILY for 30 Days, #30 CAP 0 Refills 09/21/24 Ropinirole HCl (Ropinirole HCl) 2 Mg Tablet, 1 TAB PO HS for 30 Days, #30 TAB 0 Refills /25 Pantoprazole Sodium (Pantoprazole Sodium) 40 Mg Tablet.dr, 1 TAB PO DAILY for 30 Days, #30 TAB 0 Refills 09/21/24 Furosemide (Furosemide) 20 Mg Tablet, 1 TAB PO DAILY for 30 Days, #30 TAB 0 Refills /25 Albuterol Sulfate (Ventolin Hfa) 90 Mcg Hfa.aer.ad, 2 PUFF IH Q4HPRN PRN for wheezing for 30 Days, #18 GM 0 Refills 09/21/24 Fluticasone/Umeclidin/Vilanter (Trelegy Ellipta 100-62.5-25) 100-62.5 Blst.w.dev, 1 PUFF IH DAILY for 30 Days, #1 EACH 0 Refills 09/21/24 Cetirizine HCl (Cetirizine HCl) 5 Mg Tablet, 1 TAB PO DAILY for allergy symptoms for 30 Days, #30 TAB 0 Refills 09/21/24 Insulin Aspart (Niacinamide) (Fiasp 100 Unit/ml Flextouch) 100 Unit/1 Ml Insuln.pen, 100 UNIT SQ TIDAC, SYRINGE 08/18/22 Insulin Degludec (Tresiba Flextouch U-100) 100 Unit/1 Ml Insuln.pen, 40 UNIT SQ DAILYBKFST, SYRINGE 08/18/22 Empagliflozin (Jardiance) 25 Mg Tablet, 25 MG PO AM, TAB 07/24/22 Glipizide (Glipizide) 5 Mg Tablet, 5 MG PO BID, TAB 07/24/22 Past Medical History Past Medical History: COPD, Diabetes-Type II, Other Additional Past Medical Hx: NEUROPATHY Surgical History: Other Surgical History Other: LEFT FT SX Family History: Negative Social History: Negative, Lives with family, Other RN Note Reviewed/Agreed w/PFSH: Yes Review of System Dictation CONSTITUTIONAL: NEGATIVE EXCEPT FOR HPI HEAD/FACE: NEGATIVE EXCEPT FOR HPI EENT: NEGATIVE EXCEPT FOR HPI RESPIRATORY: NEGATIVE EXCEPT FOR HPI GASTROINTESTINAL/ABDOMINAL: NEGATIVE EXCEPT FOR HPI GENITOURINARY: NEGATIVE EXCEPT FOR HPI MUSCULOSKELETAL: NEGATIVE EXCEPT FOR HPI LEFT PLANTAR FOOT ULCER CHRONIC INTEGUMENTARY: NEGATIVE EXCEPT FOR HPI NEUROLOGICAL/PSYCH: NEGATIVE EXCEPT FOR HPI HEMATOLOGIC/LYMPHATIC: NEGATIVE EXCEPT FOR HPI ALL SYSTEMS NEGATIVE, EXCEPT NOTED ABOVE. 13 POINT REVIEW OF SYSTEMS ASSESSED AND ALL NEGATIVE EXCEPT FOR ABOVE. Initial Vital Sign VS Vital Signs Date Time Temp Pulse Resp B/P (MAP) Pulse Ox O2 Delivery O2 Flow Rate FiO2 07/16/25 18:57 97.9 95 20 103/70 97 Room Air 07/16/25 19:13 0 21 Physical Exam Dictation VITAL SIGNS REVIEWED GENERAL APPEARANCE: ALERT, ORIENTED X 3, MODERATE ACUTE DISTRESS, WELL DEVELOPED, NOURISHED. HEAD AND FACE: NON-TRAUMATIC. EYES: PERRL, PINK CONJUNCTIVAS, EYELID NO TRAUMA, ANTERIOR CHAMBER WITH ARCUS SENILIS. EARS: PINNAS INTACT AND NO SIGNS OF TRAUMA OR ERYTHEMA EAR CANALS CLEAR AND NO DISCHARGE TM NO ERYTHEMA NOSE: NO DISCHARGE, NO BLEEDING. OROPHARYNX: MOUTH NORMAL, TONGUE PINK, PHARYNX CLEAR,NO ERYTHEMA, TONSILS NO EXUDATES, NO ABSCESSES NOTED, MUCOUS MEMBRANE MOIST NECK: SUPPLE, NON-TENDER, NO THYROMEGALY, NO MASSES, NO JVD, NO BRUITS BREAST:DEFERRED CHEST:NO TENDERNESS, NO CREPITUS, NO PARADOXICAL MOVEMENT, NO RETRACTIONS LUNGS:CLEAR, WELL-VENTILATED, SYMMETRIC, NO RALES, NO WHEEZING, NO RHONCHI, NO STRIDOR, GOOD BREATH SOUNDS BILATERALLY HEART: REGULAR RATE, REGULAR RHYTHM, NO MURMUR, NO GALLOPS VASCULAR: NO PERIPHERAL EDEMA, ABDOMEN: SOFT, POSITIVE BOWEL SOUNDS, NONDISTENDED, NO GUARDING, NONTENDER, NO REBOUND, NO MASSES NO HEPATOMEGALY, NO SPLENOMEGALY, NO MOSCOSO'S SIGN, NO HERNIAS. RECTAL: DEFERRED GENITAL: DEFERRED NEUROLOGICAL: NORMAL SPEECH, MOTOR FUNCTION INTACT, SENSORY FUNCTION INTACT MUSCULOSKELETAL: NECK NONTENDER, FULL RANGE OF MOTION, BACK NONTENDER, FULL RANGE OF MOTION, EXTREMITIES: NONTENDER, FULL RANGE OF MOTION SKIN: STAGE II DIABETIC ULCER TO LEFT PLANTAR 1ST METATARSAL JOINT SWELLING WITH A ERYTHEMA DRAINAGE NO LYMPHATIC: DEFERRED Results (Laboratory/Radiology) Laboratory/Radiology Laboratory Tests Test 07/16/25 19:28 White Blood Count 7.2 K/uL (4.8-10.8) Red Blood Count 3.70 MIL/uL (4.50-6.20) L Hemoglobin 12.8 g/dL (14.0-18.0) L Hematocrit 38.3 % (42-54) L Mean Corpuscular Volume 103.5 fL (79-99) H Mean Corpuscular Hemoglobin 34.6 pg (27.0-33.0) H Mean Corpuscular Hemoglobin Concent 33.4 g/dL (32.0-36.0) Red Cell Distribution Width 13.8 % (11.0-15.5) Platelet Count 176 K/uL (130-400) Mean Platelet Volume 10.1 fL (7.5-10.5) Immature Granulocyte % (Auto) 0.6 % (0-1) Neutrophils (%) (Auto) 74.0 % (40.0-77.0) Lymphocytes (%) (Auto) 14.1 % (21.0-51.0) L Monocytes (%) (Auto) 9.7 % (3.0-13.0) Eosinophils (%) (Auto) 1.2 % (0.0-8.0) Basophils (%) (Auto) 0.4 % (0.0-5.0) Neutrophils # (Auto) 5.3 K/uL (1.8-7.7) Lymphocytes # (Auto) 1.0 K/uL (1.0-4.8) Monocytes # (Auto) 0.7 K/uL (0.1-1.0) Eosinophils # (Auto) 0.09 K/uL (0.00-0.70) Basophils # (Auto) 0.03 K/uL (0.00-0.20) Absolute Immature Granulocyte (auto 0.04 K/uL (0-1) Nucleated Red Blood Cells 0.0 % (0.0-0.19) Sodium Level 138 mmol/L (136-145) Potassium Level 3.9 mmol/L (3.5-5.1) Chloride Level 102 mmol/L (101-111) Carbon Dioxide Level 29 mmol/L (21-32) Blood Urea Nitrogen 20 mg/dL (7-18) H Creatinine 1.2 mg/dL (0.5-1.3) Glomerular Filtration Rate Calc 64 mL/min (>90) Random Glucose 190 mg/dL (70-105) H Lactic Acid Level 1.8 mmol/L (0.8-2.5) Total Calcium 8.1 mg/dL (8.5-10.1) L Labs Reviewed?: Yes ED Course ED Course Orders Procedure Category Date Status Time Foot Comp 3+Vws Lt RAD 07/16/25 Resulted 19:04 Blood Cult KEARA 07/16/25 In Process 19:04 Lactic Acid LAB 07/16/25 Complete 19:04 Cbc With Differential LAB 07/16/25 Complete 19:04 Basic Metabolic Panel LAB 07/16/25 Complete 19:04 Morphine 2mg Syg PHA 07/16/25 In Process (Morphine 2mg Syg) 19:30 Ondansetron 4mg Inj PHA 07/16/25 In Process (Zofran 4mg Inj) 19:30 Aerobic Culture KEARA 07/16/25 In Process 19:07 Clindamycin 150mg Cap PHA 07/16/25 Transmitted (Cleocin 150mg Cap 21:30 Current Medications Medications (Trade) Dose Ordered Sig/Isabella Route PRN Reason Start Time Stop Time Status Last Admin Dose Admin Morphine Sulfate (morPHINE 2MG SYG) 2 mg ONCE IVP 07/16/25 19:30 07/16/25 23:30 07/16/25 20:08 Ondansetron HCl (zoFRAN 4MG INJ) 4 mg ONCE IVP 07/16/25 19:30 07/16/25 23:30 07/16/25 20:08 Vital Signs Date Time Temp Pulse Resp B/P (MAP) Pulse Ox O2 Delivery O2 Flow Rate FiO2 07/16/25 19:13 98.2 89 18 158/69 99 Room Air* 0 21 07/16/25 18:57 97.9 95 20 103/70 97 Room Air 2105/WHITE COUNT IS NORMAL, NO ELEVATED LACTIC ACID X-RAY DEMONSTRATES NO GAS OR OSTEOLYTIC CHANGES PATIENT WILL BE PLACED ON CLINDAMYCIN TOLD TO FOLLOW UP WITH DR. PAPPAS NEXT WEEK PER HIS APPOINTMENT. Medical Decision Making MDM MDM: DIFFERENTIAL DIAGNOSIS: SEPSIS/OSTEOMYELITIS/CELLULITIS/UNCONTROLLED DIABETES/ELECTROLYTE IMBALANCE/DEHYDRATION RATIONALE: TESTS CONSIDERED AND ORDERED SECONDARY TO SHARED DECISION MAKING INCLUDE: LABS/RADIOLOGY PREVIOUS OUTSIDE RECORDS REVIEWED: OLD ER VISITS. RISK OF COMPLICATION AND/OR MORBIDITY OR MORTALITY OF PATIENT MANAGEMENT: NONE MEDICATIONS-PER MEDICATION RECONCILIATION NEED FOR HOSPITALIZATION: PATIENT DOES NOT MEET CRITERIA FOR HOSPITALIZATION. NONE NEED FOR EMERGENCY MAJOR/MINOR SURGERY: NO THERE ARE NO SOCIAL CONCERNS WITH THIS PATIENT. PRESCRIPTION DRUG MANAGEMENT CLINDAMYCIN PRESCRIPTIONS WILL INCLUDE SYMPTOMATIC CARE PATIENT'S PRIOR EXTERNAL MEDICAL RECORDS FROM OTHER ER VISITS WERE REVIEWED BY ME INDICATED. PRIOR TESTING AND RESULTS FROM PREVIOUS VISITS WERE REVIEWED. PRIOR TESTS WERE TAKEN INTO ACCOUNT WITH MEDICAL DECISION MAKING AND RESOURCE UTILIZATION, INDEPENDENT HISTORIAN/HISTORIANS WERE USED TO OBTAIN COMPLETE MEDICAL HISTORY. I INDEPENDENTLY INTERPRETED THE TEST THAT WERE PERFORMED, RESULTS WERE REVIEWED BY ME AND CONSIDERED FINDINGS ON RADIOLOGY IF ORDERED. MEDICAL MANAGEMENT AND EXAMINATION INTERPRETATION DISCUSSIONS WERE HAD BY ME WITH OTHER QUALIFIED HEALTHCARE PROFESSIONALS INDICATED FOR THE PATIENT'S CARE. DX & DISP Disposition: Discharge Departure Impression: Primary Impression: Plantar ulcer of left foot Additional Impressions: Diabetes mellitus with hyperglycemia, Stage 3 chronic kidney disease, Anemia of chronic renal failure, stage 3a Condition: Stable Scripts Clindamycin HCl (Clindamycin HCl) 300 Mg Capsule 1 CAP PO QID for 10 Days, #40 CAP 0 Refills Prov: VALERIA HELM 07/16/25 Mupirocin (Bactroban 2% Oint) 2 % Oint 1 APPL TP TID for 5 Days, #15 GM 0 Refills apply to affected area(s) Prov: VALERIA HELM 07/16/25 Additional Instructions: FOLLOW-UP WITH PRIMARY CARE PROVIDER IN 1 TO 2 DAYS. TAKE MEDICATIONS DIRECTED HERE IN THE EMERGENCY ROOM. OKAY TO CONTINUE HOME MEDICATIONS UNLESS OTHERWISE DISCUSSED DURING YOUR VISIT IN THE EMERGENCY ROOM TODAY. RETURN TO YOUR NEAREST EMERGENCY ROOM IF SYMPTOMS WORSEN OR IF THERE IS NO IMPROVEMENT. CALL 911 IF YOU NEED IMMEDIATE ASSISTANCE. TAKE TYLENOL OR MOTRIN [id number] NEEDED AND IF NO CONTRAINDICATIONS ARE PRESENT. INCREASE ORAL HYDRATION. A WOUND CULTURE OR URINE CULTURE WAS ORDERED HERE IN THE EMERGENCY ROOM DEPARTMENT PLEASE FOLLOW-UP WITH PRIMARY CARE PROVIDER AND ADVISE THEM TO GET REPEAT PORTS FROM OUR FACILITY. IF YOU HAD ANY YADIRA WRAP/SPLINTS THAT WERE APPLIED HERE, PLEASE DO NOT REMOVE THEM UNTIL YOU SEE YOUR PRIMARY CARE OR SPECIALTY. OKAY TO WASH YOUR FOOT WITH SOAP AND AND WATER AND DRY THOROUGHLY. APPLY BACTROBAN OINTMENT3 TIMES A DAY FOR FIVE DAYS WITH DRESSING. TAKE CLINDAMYCIN DIRECTED UNTIL GONE. KEEP YOUR APPOINTMENT WITH DR. PAPPAS NEXT WEEK Referrals: JOHN STROUD MD (PCP) MAURA PAPPAS DPM Time of Disposition: 21:10 I have reviewed the case, and I agree with, Diagnosis and Plan VALERIA HELM Jul 16, 2025 19:09
[2025-07-16 19:56] LABS: IMMATURE GRANULOCYTE ABSOLUTE 0.04 K/uL (0-1); NUCLEATED RED BLOOD CELLS 0.0 % (0.0-0.19); PLATELET COUNT (AUTO) 176 K/uL (130-400); RED BLOOD CELL COUNT(AUTO) 3.70 MIL/uL (4.50-6.20); RED CELL DISTRIBUTION WIDTH 13.8 % (11.0-15.5); WHITE BLOOD COUNT (AUTO) 7.2 K/uL (4.8-10.8)
[2025-07-16 20:04] LABS: CREATININE 1.2 mg/dL (0.5-1.3); GLOMERULAR FILTR. RATE CALC 64.0 mL/min (>90); GLUCOSE,RANDOM 190.0 mg/dL (70-105); SODIUM SERUM 138.0 mmol/L (136-145); UREA NITROGEN, BLOOD 20.0 mg/dL (7-18)
--- NOTE | 2025-07-16 20:04 | HMCIMG ---
EXAM: CR left foot, 3 View. CLINICAL HISTORY: DIABETIC ULCER TO PLANTAR BASE LEFT GREAT TOE COMPARISON: Radiograph dated April 17, 2020 Findings: Interval arthrodesis of the first tarsometatarsal joint utilizing a lateral plate affixed to the bone by screws. There is a small break within the lateral plate at the level of the base of the medial cuneiform. Screw traverses the cuneiform and talus and a second screw traverses the base of the fifth metatarsal, cuboid, and calcaneus. Osteoarthritic changes at the midfoot. Old fracture deformity at the diaphysis of the second metatarsal. Soft tissue swelling, predominantly within the great toe. There is a plantar wound at the base of the great toe, and a 2.0 mm thin radiopacity overlying the plantar soft tissues of the base of the great toe (approximately 5.5 mm deep to the skin). It is unclear whether this reflects a foreign body or an external object, clinical correlation is advised. No displaced acute fracture or evidence of periostitis. If there is persistent clinical concern for osteomyelitis recommend MR imaging for further evaluation. IMPRESSION: 1. No acute osseous injury. 2. Interval arthrodesis of the first tarsometatarsal joint with lateral plate and screws. Small break within the lateral plate at the level of the base of the medial cuneiform. 3. Plantar wound at the base of the great toe with 2.0 mm thin radiopacity in adjacent soft tissues, possibly representing foreign body or external object. Clinical correlation advised. /[place]
[2025-07-16] MEDS ORDERED: CLIN-141 PO (21:10)
[2025-07-16] MEDS ORDERED: MUPI22O TP (21:10)
[2025-07-16] MEDS: CLINDAMYCIN 150 MG CAP PO ONE (21:36)
[2025-07-16] MEDS: NEOMY SULF/BACITRA/POLYMYXIN B 1 EACH PACKET TP ONE (21:41)
[2025-07-16 22:07] VITALS: BP 143/75; PULSE 75; RESP 18; TEMP 98.3; O2SAT 98
== END 2025-07-16 22:08 | disposition home or self-care (01) ==
LOC: EDH 18:56
DX: E11.621 Type 2 diabetes mellitus with foot ulcer (principal); L97.529 Non-pressure chronic ulcer of other part of left foot with unspecified severity; E11.65 Type 2 diabetes mellitus with hyperglycemia; E11.22 Type 2 diabetes mellitus with diabetic chronic kidney disease; N18.31 Chronic kidney disease, stage 3a; D63.1 Anemia in chronic kidney disease; E11.40 Type 2 diabetes mellitus with diabetic neuropathy, unspecified; J44.9 Chronic obstructive pulmonary disease, unspecified; Z88.6 Allergy status to analgesic agent; Z79.899 Other long term (current) drug therapy; Z79.84 Long term (current) use of oral hypoglycemic drugs; Z79.52 Long term (current) use of systemic steroids; Z79.4 Long term (current) use of insulin; Z79.02 Long term (current) use of antithrombotics/antiplatelets
CPT/HCPCS: 99284; 96374; 96375; 80048; 85025; 87040 ×2; 87070; 87086 ×2; 87186 ×2; 83605; 36415; 73630; J2270; J2405